=== PATIENT | female | born 1970 | race Caucasian/White ===

== ENCOUNTER → 2016-06-04 | Outpatient (POV) | payer OTHER, SELFPAY | PROVIDERS: Family Provider Internal Medicine Adolescent Medicine; PCP Internal Medicine Adolescent Medicine; Visit Provider Specialist | DX: Z00.00 Encounter for general adult medical examination without abnormal findings (principal) ==

== ENCOUNTER → 2017-07-24 07:36 | Outpatient (CLI) | payer OTHER, SELFPAY ==
[2017-07-24 07:57] LABS: Basophils % 0.7 % (0.1-2.0); Eosinophils # 0.3 K/mm3 (0.0-0.4); Eosinophils % 5.9 % (0.1-12.0); Lymphocytes # 1.8 K/mm3 (0.7-4.5); Lymphocytes % 36.6 K/mm3 (10-50); Mean Corpuscular HGB Conc 33.3 g/dL (31.8-35.4); Mean Corpuscular Hemoglobin 29.5 pg (27.0-31.2); Mean Corpuscular Volume 88.6 fl (81-99); Mean Platelet Volume 7.4 fl (7.4-10.4); Monocytes # 0.2 K/mm3 (0.1-1.0); Monocytes % 4.2 % (1.7-9.3); Neutrophils # 2.6 K/mm3 (1.8-7.8); Neutrophils % 52.6 % (37.0-80.0); Platelet Count 211 K/mm3 (142-424); Red Blood Count 4.74 M/mm3 (4.20-5.40); Red Cell Distribution Width 13.1 % (11.5-17.5); White Blood Count 4.8 K/mm3 (4.8-10.8)
[2017-07-24 08:38] LABS: Alanine Aminotransferase 19 U/L (12-78); Albumin Level 3.4 gm/dL (3.4-5.0); Alkaline Phosphatase 79 U/L (46-116); Aspartate Amino Transferase 13 U/L (15-37); Bilirubin,Total 0.3 mg/dL (0.2-1.0); Blood Urea Nitrogen 13 mg/dL (7-18); Calcium 8.6 mg/dL (8.5-10.1); Carbon Dioxide 30 mmol/L (21.0-32.0); Chloride 106 mmol/L (98-107); Creatinine,Serum 0.91 mg/dL (0.55-1.02); Estimated Glomerular Filt Rate 66 ml/min (>60); GFR (African American) 80 ML/MIN (>60); Globulin 3.4 gm/dl (1.3-3.2); Glucose 114 mg/dL (74-106); Sodium 141 mmol/L (136-145); Total Protein,Serum 6.8 gm/dL (6.4-8.2)
[2017-07-26 11:39] LABS: Levetiracetam (Keppra) 35.5 ug/mL (10.0-40.0)
== END ==
PROVIDERS: Visit Provider Specialist
DX: G40.909 Epilepsy, unspecified, not intractable, without status epilepticus (principal)
CPT/HCPCS: 36415; 80053; 80177; 85025

== ENCOUNTER → 2018-02-05 10:26 | Outpatient (CLI) | payer OTHER, SELFPAY ==
--- NOTE | 2018-02-05 10:29 | MR_ITS ---
MR head/brain wo/w con HISTORY: Seizure disorder ITS.REASON: seizures ORDERING PHYSICIAN: Felicita Garrison PATIENT AGE: 47 years Comparison: 04/07/2015 TECHNIQUE: Standard multiplanar multiecho sequences are performed without and with gadolinium enhancement. FINDINGS: No midline shift, mass effect, intracranial hemorrhage, or hydrocephalus is evident. The cerebellopontine angles, cerebellum, and brainstem are unremarkable. There is normal jones-white matter differentiation. No acute infarction. No abnormal T2 white matter hyperintensities. No enhancing lesions. The hippocampal gyri are unremarkable in the temporal horns are symmetric. There is a partial empty sella once again noted similar to the previous exam. The optic chiasm is unremarkable. Upper cervical cord has an unremarkable appearance. No mastoid effusion or sinus air-fluid level. IMPRESSION: 1. Negative MRI of the brain without and with contrast with no significant change. 2. Partial empty sella as a normal variant [facility] category
--- NOTE | 2018-02-05 11:34 | HMH.ITSHM ---
LEVETIRACETAM DIVALPROEX GABAPENTIN AMITRIPTLYN
== END ==
PROVIDERS: Family Provider Emergency Medicine; PCP Nurse Practitioner Family; Visit Provider Nurse Practitioner Family
DX: G40.909 Epilepsy, unspecified, not intractable, without status epilepticus (principal); G40.919 Epilepsy, unspecified, intractable, without status epilepticus
CPT/HCPCS: 70553; A9576

== ENCOUNTER → 2018-05-09 19:30 | Outpatient (CLI) | payer OTHER, SELFPAY ==
[2018-05-09 20:39] LABS: Amphetamine/Metha Screen,Urine Negative ng/mL (<1000); Barbiturates Screen,Urine Negative ng/mL (<200); Benzodiazepines Screen,Urine Negative ng/mL (<200); Cannabinoid Screen,Urine Negative ng/mL (<50); Cocaine Screen,Urine Negative ng/mL (<300); Methadone Screen,Urine Negative ng/mL (<300); Opiate Screen,Urine Negative ng/mL (<300); Phencyclidine Screen,Urine Negative ng/mL (<25)
== END ==
PROVIDERS: Visit Provider Nurse Practitioner Family
DX: Z79.899 Other long term (current) drug therapy (principal)
CPT/HCPCS: 80305

== ENCOUNTER → 2018-05-12 14:16 | Outpatient (CLI) | payer OTHER, SELFPAY ==
--- NOTE | 2018-05-12 14:20 | XR_ITS ---
XR finger LT min 2V CLINICAL INDICATION: Pain and swelling following injury ITS.REASON: broken finger ORDERING PHYSICIAN: Santa Kelsey PATIENT AGE: 47 years Comparison: None FINDINGS: There is a small triangular-shaped bone fragment along the dorsal and distal aspect of the middle phalanx of the fourth digit consistent with an avulsion fracture. It is uncertain if the donor site is at the distal aspect of the middle phalanx or the proximal aspect of the distal phalanx. There are other small fragments in this region as well. There is mild flexion of the distal phalanx with overlying soft tissue swelling. IMPRESSION: Dorsal avulsion fracture at the DIP joint of the fourth digit
== END ==
PROVIDERS: PCP Nurse Practitioner Family; Visit Provider Nurse Practitioner Family
DX: S62.609A Fracture of unspecified phalanx of unspecified finger, initial encounter for closed fracture (principal)
CPT/HCPCS: 73140

== ENCOUNTER → 2018-07-15 14:24 | Outpatient (CLI) | payer OTHER, SELFPAY ==
[2018-07-15 14:38] LABS: Basophils % 0.5 % (0.1-2.0); Eosinophils # 0.3 K/mm3 (0.0-0.4); Eosinophils % 5.7 % (0.1-12.0); Hematocrit 41.6 % (37.0-47.0); Hemoglobin 13.7 g/dL (12.2-16.2); Lymphocytes # 1.9 K/mm3 (0.7-4.5); Mean Corpuscular Hemoglobin 29.4 pg (27.0-31.2); Mean Platelet Volume 7.3 fl (7.4-10.4); Monocytes # 0.2 K/mm3 (0.1-1.0); Monocytes % 4.6 % (1.7-9.3); Neutrophils # 2.7 K/mm3 (1.8-7.8); Neutrophils % 52.3 % (37.0-80.0); Platelet Count 200 K/mm3 (142-424); Red Blood Count 4.68 M/mm3 (4.20-5.40); Red Cell Distribution Width 13.6 % (11.5-17.5); White Blood Count 5.1 K/mm3 (4.8-10.8)
[2018-07-15 15:54] LABS: Alanine Aminotransferase 27 U/L (12-78); Albumin Level 3.3 gm/dL (3.4-5.0); Albumin/Globulin Ratio 0.9 (1.1-1.8); Alkaline Phosphatase 75 U/L (46-116); Anion Gap 12.2 mEq/L (5-15); Aspartate Amino Transferase 15 U/L (15-37); Bilirubin,Total 0.2 mg/dL (0.2-1.0); Blood Urea Nitrogen 13 mg/dL (7-18); Carbon Dioxide 31 mmol/L (21.0-32.0); Chloride 105 mmol/L (98-107); Creatinine,Serum 1.26 mg/dL (0.55-1.02); Estimated Glomerular Filt Rate 45 ml/min (>60); GFR (African American) 54 ML/MIN (>60); Globulin 3.5 gm/dl (1.3-3.2); Glucose 103 mg/dL (74-106); Potassium 4.2 mmoL/L (3.5-5.1); Sodium 144 mmol/L (136-145); Thyroid Stimulating Hormone 2.81 uIU/ml (0.358-3.740); Total Protein,Serum 6.8 gm/dL (6.4-8.2)
[2018-07-15 16:11] LABS: Erythrocyte Sedimentation Rate 11 mm/hr (0-20)
[2018-07-17 08:55] LABS: Vitamin B12 513 pg/mL (232-1245)
[2018-07-18 08:48] LABS: Folate 4.4 ng/mL (>3.0)
== END ==
PROVIDERS: Visit Provider Nurse Practitioner Family
DX: G40.919 Epilepsy, unspecified, intractable, without status epilepticus (principal)
CPT/HCPCS: 36415; 80053; 82607; 82746; 84443; 85025; 85651

== ENCOUNTER → 2018-08-13 08:34 | Outpatient (CLI) | payer OTHER, SELFPAY ==
--- NOTE | 2018-08-13 08:53 | XR_ITS ---
XR knee LT 3V HISTORY: ITS.REASON: pain ORDERING PHYSICIAN: Lupis Khalil MD PATIENT AGE: 48 years COMPARISON: 10/24/2016 FINDINGS: There are moderate osteoarthritic changes involving all 3 compartments as previously described not significantly changed considering the difference in technique. No fracture or dislocation. No lytic or blastic change. IMPRESSION: No change moderate osteoarthritis of the knee
--- NOTE | 2018-08-13 08:53 | XR_ITS ---
XR knee RT 3V HISTORY: Chronic knee pain ITS.REASON: pain ORDERING PHYSICIAN: Lupis Khalil MD PATIENT AGE: 48 years COMPARISON: None FINDINGS: There are [id number] osteoarthritic changes of the medial compartment and mild osteoarthritis of the lateral compartment and patellofemoral joint. Osteophytes are present at the knee joint. There is a loose body along the inferior aspect of the patella measuring 12 mm. IMPRESSION: [id number] osteoarthritis. Loose body along the infrapatellar region
== END ==
PROVIDERS: PCP Nurse Practitioner Family; Visit Provider Specialist
DX: G40.909 Epilepsy, unspecified, not intractable, without status epilepticus (principal); G89.29 Other chronic pain; M25.562 Pain in left knee; M25.561 Pain in right knee
CPT/HCPCS: 36415; 73562; 80165

== ENCOUNTER → 2019-02-02 14:33 | Outpatient (CLI) | payer OTHER, SELFPAY ==
--- NOTE | 2019-02-02 14:36 | XR_ITS ---
PROCEDURE: XR KNEE RT 4V CLINICAL INDICATION: pain COMPARISON: [id number] KNEE-4 OR 5 VIEWS-RT from 10/24/2016 [id number] KNEE-4 OR 5 VIEWS-LT from 10/24/2016 [id number] XR knee LT 3V from 08/13/2018 [id number] XR knee RT 3V from 08/13/2018 FINDINGS: There are moderate osteoarthritic changes involving the medial compartment and patellofemoral joint with mild osteoarthritis of the lateral compartment. No fracture or dislocation. Osteophytes are present at the medial lateral joint space is well as the patellofemoral joint. Calcific density now overlies the superior lateral aspect of the patella. Previously this was in the infrapatellar region. This is consistent with a loose intra-articular body measuring up to 1.9 cm cephalad caudad and 0.8 cm transverse. IMPRESSION: Osteoarthritis with loose intra-articular body. The osteoarthritic changes are not significantly changed Dictated by: Timothy Desai MD 02/02/2019 16:41 Electronically signed by Timothy Desai MD in [place] 02/02/2019 16:41
--- NOTE | 2019-02-02 14:36 | XR_ITS ---
PROCEDURE: XR KNEE LT 4V CLINICAL INDICATION: pain Knee pain COMPARISON: [id number] KNEE-4 OR 5 VIEWS-RT from 10/24/2016 [id number] KNEE-4 OR 5 VIEWS-LT from 10/24/2016 [id number] XR knee LT 3V from 08/13/2018 [id number] XR knee RT 3V from 08/13/2018 FINDINGS: There are moderate osteoarthritic changes involving all 3 compartments. There is prominent bony spurring decrease in the joint space and osteosclerosis. No fracture or dislocation. There is normal alignment. IMPRESSION: No change moderate osteoarthritis of the left knee Dictated by: Timothy Desai MD 02/02/2019 16:33 Electronically signed by Timothy Desai MD in [place] 02/02/2019 16:33
== END ==
PROVIDERS: PCP Nurse Practitioner Family; Visit Provider Nurse Practitioner Family
DX: G89.29 Other chronic pain (principal); M25.562 Pain in left knee; M25.561 Pain in right knee
CPT/HCPCS: 73564

== ENCOUNTER → 2019-02-11 11:35 | Outpatient (CLI) | payer OTHER, SELFPAY ==
[2019-02-11 12:34] LABS: Basophils % 0.6 % (0.1-2.0); Eosinophils # 0.2 K/mm3 (0.0-0.4); Eosinophils % 3.7 % (0.1-12.0); Hematocrit 44.1 % (37.0-47.0); Hemoglobin 13.3 g/dL (12.2-16.2); Lymphocytes # 1.8 K/mm3 (0.7-4.5); Lymphocytes % 34.6 % (10-50); Mean Corpuscular HGB Conc 30.1 g/dL (31.8-35.4); Mean Corpuscular Hemoglobin 27.8 pg (27.0-31.2); Mean Corpuscular Volume 92.3 fl (81-99); Mean Platelet Volume 7.9 fl (7.4-10.4); Monocytes # 0.3 K/mm3 (0.1-1.0); Monocytes % 6.1 % (1.7-9.3); Neutrophils # 2.8 K/mm3 (1.8-7.8); Neutrophils % 55.1 % (37.0-80.0); Platelet Count 180 K/mm3 (142-424); Red Blood Count 4.78 M/mm3 (4.20-5.40); Red Cell Distribution Width 13.8 % (11.5-17.5); White Blood Count 5.1 K/mm3 (4.8-10.8)
[2019-02-11 13:41] LABS: Alanine Aminotransferase 15 U/L (12-78); Albumin Level 3.2 gm/dL (3.4-5.0); Alkaline Phosphatase 55 U/L (46-116); Anion Gap 10.5 mEq/L (5-15); Aspartate Amino Transferase 7 U/L (15-37); Bilirubin,Total 0.3 mg/dL (0.2-1.0); Blood Urea Nitrogen 9 mg/dL (7-18); Calcium 8.7 mg/dL (8.5-10.1); Carbon Dioxide 30 mmol/L (21.0-32.0); Chloride 107 mmol/L (98-107); Creatinine,Serum 0.76 mg/dL (0.55-1.02); Estimated Glomerular Filt Rate 81 ml/min (>60); GFR (African American) 97 ML/MIN (>60); Globulin 3.1 gm/dl (1.3-3.2); Glucose 75 mg/dL (74-106); Potassium 4.5 mmoL/L (3.5-5.1); Sodium 143 mmol/L (136-145); Total Protein,Serum 6.3 gm/dL (6.4-8.2)
== END ==
PROVIDERS: Visit Provider Nurse Practitioner Family
DX: G40.909 Epilepsy, unspecified, not intractable, without status epilepticus (principal)
CPT/HCPCS: 36415; 80053; 85025

== ENCOUNTER 2019-03-24 20:03 | Observation (INO) ==
[2019-03-24 20:19] LABS: Microscopic, Urine URINE MICROSCOPIC (MICROSCOPIC)
[2019-03-24 20:27] LABS: Appearance,Urine CLEAR (Clear); Blood, Urine TRACE-I (Negative); Color,Urine YELLOW (Yellow); Glucose,Urine (UA) Negative (Negative); Ketones,Urine 3+ (Negative); Leukocyte Esterase,Urine Negative (Negative); Protein,Urine TRACE (Negative); Specific Gravity, Urine 1.025 (1.005-1.030); Urobilinogen,Urine 0.2 EU/dl (0.2)
[2019-03-24 20:40] LABS: Bilirubin,Urine Negative (Negative)
[2019-03-24 20:49] LABS: Bacteria,Urine Trace /lpf; WBC,Urine Occasional #/hpf (0-3)
--- NOTE | 2019-03-24 21:08 | Emergency Department Note ---
ED Disposition Clinical Impression: Abdominal pain Qualifiers: Abdominal location: right upper quadrant Qualified Code(s): R10.11 - Right upper quadrant pain Disposition: Admitted as Observation Condition on Discharge: Good Instructions: DI for Acute Abdomen Referrals: Sonido Redmond MD [Primary Care Provider] - - Critical Care Critical Care Time: No Attestation: On 03/24/19, the high probability of a clinically significant, sudden or life threatening deterioration of the following system(s) required my full and direct attention, intervention and personal management. The time I documented below is in addition to time spent performing reported procedures but includes the following listed in this critical care notation. Medical Decision Making - Medical Records Medical records reviewed: Yes: I reviewed the patient's medical records. - [place] Inquiry Pt receiving controlled substance: No Vital Signs: 03/24/19 20:04 03/24/19 21:35 Temperature 98.4 F Temperature Source Oral Pulse Rate [Right Brachial] 83 72 Respiratory Rate 20 18 Blood Pressure [Right Arm] 164/81 H 167/87 H Blood Pressure Mean [Right Arm] 108 113 Blood Pressure Source [Right Arm] Automatic Cuff Automatic Cuff Blood Pressure Position [Right Arm] Sitting Sitting 02 Sat by Pulse Oximetry 99 97 Oxygen Delivery Method Room Air Room Air - Lab Data Lab results reviewed: Yes: I reviewed the patient's lab results. Lab Results 03/24/19 20:10: Urine Color Yellow, Urine Appearance Clear, Urine pH 6.0, Ur Specific [place] 1.025, Urine Protein Trace, Urine Glucose (UA) Negative, Urine Ketones 3+, Urine Blood Trace-i, Urine Nitrate Negative, Urine Bilirubin Negative, Urine Urobilinogen 0.2, Ur Leukocyte Esterase Negative, Urine WBC Occasional, Ur Squamous Epith Cells 3-5, Urine Bacteria Trace 03/24/19 20:10: Urine HCG, Qual Negative 03/24/19 21:12: WBC 5.8, RBC 4.87, Hgb 14.3, Hct 44.9, MCV 92.2, MCH 29.3, MCHC 31.7 L, RDW 13.7, Plt Count 179, MPV 8.3, Neut % (Auto) 56.3, Lymph % (Auto) 34.3, [place] % (Auto) 6.2, Eos % (Auto) 2.7, Baso % (Auto) 0.5, Neut # (Auto) 3.3, Lymph # (Auto) 2.0, [place] # (Auto) 0.4, Eos # (Auto) 0.2, Baso # (Auto) 0.0 03/24/19 21:12: Sodium 137, Potassium 3.0 L, Chloride 102, Carbon Dioxide 24, Anion Gap 14.0, BUN 11, Creatinine 0.81, Estimated Creat Clear 131, Estimated GFR 75, Est GFR ( Amer) 91, Glucose 79, Calcium 8.6, Total Bilirubin 0.5, AST 13 L, ALT 18, Alkaline Phosphatase 52, Total Protein 6.6, Albumin 3.2 L, Globulin 3.4 H, Albumin/Globulin Ratio 0.9 L, Amylase 163 H 03/24/19 21:12: C-Reactive Protein 1.3 H, Lipase 53 L 03/24/19 21:12: ESR 21 H 03/24/19 21:12: Lactate 0.5 Result diagrams: 03/24/19 21:12 03/24/19 21:12 Orders (Tests/Meds): ED MEDICATIONS Generic Name Dose Route Start Last Admin Trade Name Freq PRN Reason Stop Dose Admin Sodium Chloride 1,000 mls @ 999 mls/hr 03/24/19 20:45 03/24/19 20:45 Sod Chlor 0.9% 1000ml Bag IV 03/24/19 21:45 999 mls/hr .Q1H1M XOCHITL Administration Sodium Chloride 8 ml 03/24/19 20:32 Sodium Chloride 0.9% 10ml Vial IV 04/23/19 20:31 NEEDED PRN dilute pepcid Discontinued Medications Generic Name Dose Route Start Last Admin Trade Name Freq PRN Reason Stop Dose Admin Famotidine 20 mg 03/24/19 20:32 03/24/19 20:45 Pepcid 20mg/2ml Vial IV 03/24/19 20:33 20 mg ONCE ONE Administration Ketorolac Tromethamine 30 mg 03/24/19 20:32 03/24/19 20:45 Toradol 30mg/Ml Vial IV 03/24/19 20:33 30 mg ONCE ONE Administration Metoclopramide HCl 10 mg 03/24/19 20:32 03/24/19 20:45 Reglan 10mg/2ml Vial IVP 03/24/19 20:33 10 mg ONCE ONE Administration Ondansetron HCl 4 mg 03/24/19 20:32 03/24/19 20:45 Zofran 4mg/2ml Vial IV 03/24/19 20:33 4 mg ONCE ONE Administration ORDERS Category Date Time Status CT abdomen pelvis wo con Stat Cat Scan 03/24/19 20:15 Taken Blood Culture Stat Micro 03/24/19 21:12 Received - CT Data CT Scan: Abdomen, Pelvis Time Received: 21:[address] Reviewed: Yes: I have viewed the radiologist's interpretation Preliminary Findings: Abnormal (nonspecific ) Nausea/Vomiting/Diarrhea HPI - General Chief complaint: Abdominal Pain Stated complaint: abd pain Time Seen by Provider: 03/24/19 20:10 Mode of Arrival: Ambulatory Source of Information: Patient, Spouse, Medical Record Limitations: No Limitations Description of Symptoms (Recalled from ER Triage Doc. by RN): Pt states she was dx with a UTI on sat and is still having abd pain. She reports it as being the same as before. She denies any other symptoms at this time. - History of Present Illness HPI Narrative: pt with upper abd pain with voming and dec po intake with hx of same and was seen in the [facility] and treated for uti MD complaint: nausea, vomiting, abdominal pain Onset (ago): day(s) Associated Abdominal Pain: Yes Location of pain: epigastric Severity: moderate Consistency: intermittent Associated symptoms: denies other symptoms - Related Data Home Medications Medication Instructions Recorded Confirmed Gabapentin [Neurontin 600mg 600 mg PO TID 02/20/19 03/24/19 tablet] cephALEXin [Keflex 500mg Cap] 500 mg PO BID 03/24/19 03/24/19 Previous Rx's Medication Instructions Recorded levetiracetam 500 mg tablet 1,500 mg PO BID 30 Days #180 tab 07/28/18 Cyclobenzaprine HCl 5 mg PO Q8H PRN 10 Days #30 tab 02/20/19 [Cyclobenzaprine 5mg Tab] Naproxen [Naproxen 500mg tab] 500 mg PO Q12H PRN 30 Days #60 tab 02/20/19 Allergies Allergy/AdvReac Type Severity Reaction Status Date / Time codeine [CODEINE] Allergy Unknown Verified 03/24/19 20:13 guaifenesin [GUAIFENESIN] Allergy Unknown Verified 03/24/19 20:13 morphine [MORPHINE] Allergy Unknown Verified 03/24/19 20:13 [facility] History - Hepatitis A Screen Drug use history?: No High risk sexual behaviors?: No History of sexually transmitted infection?: No Currently employed?: No Childcare worker?: No Do you have indoor plumbing?: Yes Do you have electricity?: Yes Attestation statement:: This patient has been screened for Hepatitis A risk factors. I have reviewed the patient's past medical history: Yes Medical History: Reports:: Anxiety, Hyperlipidemia, Hypertension, Seizures Comment: Back pain Other Surgeries: Yes: Amputation: No Fractures: No - Social History Smoking Status: Never smoker Alcohol Intake: never Alcohol Intake Frequency:: other Substance Use Type: denies use Occupational Status: employed Housing: house Household Members: spouse, children - Psychiatric History Pschychiatric History:: Reports:: Anxiety Family Hx:: Hypertension, Cancer ROS Obtained: Yes All systems reviewed & no additional complaints - Constitutional Constitutional: Denies fever(s) - Eyes Eyes: Denies change in vision - ENT Ears, Nose, Mouth, and Throat: Denies sore throat - Cardiovascular Cardiovascular: Denies chest pain - Respiratory Respiratory: No cough - Gastrointestinal Gastrointestingal: Reports: as per HPI, abdominal pain, nausea, vomiting. Denies: diarrhea - Genitourinary Female Genitourinary: Denies hematuria - Musculoskeletal Musculoskeletal: Denies joint pain, Denies joint swelling - Integumentary/Breasts Skin/Breast: Denies rash - Neurologic Neurologic: Denies frequent falls, Denies seizure-like activity Physical Exam - General General appearance: alert, obese - Head Head exam: normocephalic - Eye Eye exam: Present: PERRL, EOMI. Absent: scleral icterus - ENT ENT exam: Present: mucous membranes dry - Neck Neck exam: Present: trachea midline - Respiratory Respiratory exam: Present: normal lung sounds bilaterally. Absent: respiratory distress - Cardiovascular Cardiovascular exam: Present: regular rate. Absent: systolic murmur - Abdominal Exam Abdominal exam: Present: soft, tenderness. Absent: tenderness at McBur[place]'s Point Abdominal tenderness: Present: epigastrium, moderate - Extremities Exam Extremities exam: Present: full ROM - Neurological Exam Neurological exam: Present: alert, oriented X3, CN II-XII intact - Psychiatric Psychiatric exam: Present: normal affect - Skin Skin exam: Absent: rash
[2019-03-24 21:24] LABS: Basophils % 0.5 % (0.1-2.0); Eosinophils # 0.2 K/mm3 (0.0-0.4); Eosinophils % 2.7 % (0.1-12.0); Hematocrit 44.9 % (37.0-47.0); Hemoglobin 14.3 g/dL (12.2-16.2); Lymphocytes % 34.3 % (10-50); Mean Corpuscular HGB Conc 31.7 g/dL (31.8-35.4); Mean Corpuscular Volume 92.2 fl (81-99); Mean Platelet Volume 8.3 fl (7.4-10.4); Monocytes # 0.4 K/mm3 (0.1-1.0); Monocytes % 6.2 % (1.7-9.3); Neutrophils # 3.3 K/mm3 (1.8-7.8); Neutrophils % 56.3 % (37.0-80.0); Platelet Count 179 K/mm3 (142-424); Red Blood Count 4.87 M/mm3 (4.20-5.40); Red Cell Distribution Width 13.7 % (11.5-17.5); White Blood Count 5.8 K/mm3 (4.8-10.8)
[2019-03-24 21:32] LABS: C-Reactive Protein 1.3 mg/dL (0.0-0.9)
[2019-03-24 21:37] LABS: Albumin Level 3.2 gm/dL (3.4-5.0); Albumin/Globulin Ratio 0.9 (1.1-1.8); Bilirubin,Total 0.5 mg/dL (0.2-1.0); Calcium 8.6 mg/dL (8.5-10.1); Globulin 3.4 gm/dl (1.3-3.2); Total Protein,Serum 6.6 gm/dL (6.4-8.2)
[2019-03-25 06:24] LABS: Basophils % 0.7 % (0.1-2.0); Eosinophils # 0.1 K/mm3 (0.0-0.4); Eosinophils % 2.8 % (0.1-12.0); Hematocrit 38.8 % (37.0-47.0); Lymphocytes # 1.6 K/mm3 (0.7-4.5); Lymphocytes % 32.1 % (10-50); Mean Corpuscular HGB Conc 32.3 g/dL (31.8-35.4); Mean Corpuscular Volume 91.2 fl (81-99); Mean Platelet Volume 8.8 fl (7.4-10.4); Monocytes # 0.4 K/mm3 (0.1-1.0); Monocytes % 7.2 % (1.7-9.3); Neutrophils # 2.9 K/mm3 (1.8-7.8); Neutrophils % 57.1 % (37.0-80.0); Platelet Count 141 K/mm3 (142-424); Red Blood Count 4.26 M/mm3 (4.20-5.40); Red Cell Distribution Width 13.4 % (11.5-17.5)
[2019-03-25 06:36] LABS: Hemoglobin 12.6 g/dL (12.2-16.2)
[2019-03-25 06:56] LABS: Anion Gap 15.2 mEq/L (5-15); Calcium 7.9 mg/dL (8.5-10.1)
--- NOTE | 2019-03-25 07:20 | Pharmacy Consult Notes ---
[facility] Pharmacy VTE Monitoring - Patient Demographics Admission date: 03/24/19 Report Date: 03/25/19 Time: 07:20 Allergies/Adverse Reactions: Patient Allergies codeine [CODEINE] Allergy (Unknown, Verified 03/24/19 20:13) guaifenesin [GUAIFENESIN] Allergy (Unknown, Verified 03/24/19 20:13) morphine [MORPHINE] Allergy (Unknown, Verified 03/24/19 20:13) Height: 1.7 m Weight: 105.347 kg Patient Problems: Current Active Problems Abdominal pain (Acute) - VTE Risk Labs: VTE Related Lab Results Hgb 12.6 g/dL (12.2-16.2) D 03/25/19 06:15 Hct 38.8 % (37.0-47.0) 03/25/19 06:15 Plt Count 141 K/mm3 (142-424) L 03/25/19 06:15 BUN 9 mg/dL (7-18) 03/25/19 06:15 Creatinine 0.66 mg/dL (0.55-1.02) 03/25/19 06:15 Estimated Creat Clear 170 mL/min (50-200) 03/25/19 06:15 Was VTE Risk Assessment Performed: No VTE Score: 3 VTE Risk Level: Low Risk - Prophylaxis VTE Prophylaxis Ordered?: Yes Types of VTE Prophylaxis: TEDS Knee High Location of Applied Device: Bilateral Lower Extremeties - VTE Diagnosis Confirmed Treatment or plan recommended: Continue Current Treatment
--- NOTE | 2019-03-25 08:56 | Consult Report ---
*Admission Date: 03/24/19 *Reason for consult:: Right upper quadrant pain. Possible cholelithiasis. *History of present illness: This is a 48-year-old female seen in consultation from Dr. Redmond for evaluation regarding right upper quadrant abdominal pain and possible cholelithiasis. She presented to the emergency department yesterday with increasing upper abdominal pain. She states that her pain is in the epigastric region and right upper quadrant and has been exacerbated by "fatty foods like hamburgers". No jaundice. No fevers. She has recently been diagnosed with urinary tract infection and is on antibiotics. No change in bowel habits. CT scan revealed a possible stone in the neck of the gallbladder with no definitive signs of cholecystitis. Diverticulosis and mild thickening of small bowel loops within the pelvis were also noted. Review of Systems - Constitutional Denies chills - Eyes Denies change in vision - ENT Denies dizziness - *Cardiovascular Denies chest pain - *Respiratory Denies cough - *Gastrointestinal Reports abdominal pain, Reports nausea - *Genitourinary Denies abnormal vaginal bleeding - *Musculoskeletal Denies tingling - Integumentary/Breasts Denies bleeding lesions - *Neurologic Denies frequent falls, Denies seizure-like activity - Psychiatric Denies anxiety - Endocrine Denies flushing - Hematologic/Lymphatic Denies easy bleeding [facility] History Medical History: Reports:: Anxiety, Hyperlipidemia, Hypertension, Seizures Denies:: Diabetes Mellitus Type 1, Diabetes Mellitus Type 2 *Have you ever received a pneumonia vaccine?: No *Have you received a flu vaccine this season?: No Other Surgeries: Yes: Amputation: No Fractures: No - *Social History Educational Level: Completed High School Smoking Status: Never smoker Alcohol Intake: never Alcohol Intake Frequency:: other Substance Use Type: denies use *Occupational Status:: employed Housing: house Household Members: spouse, children *Travel in the last 8 weeks: None - Psychiatric History Pschychiatric History:: Reports:: Anxiety Family Hx:: Hypertension, Cancer Meds Home Medications Medication Instructions Recorded Confirmed Type levetiracetam 500 mg tablet 1,500 mg PO BID 30 Days #180 tab 07/28/18 03/24/19 Rx Gabapentin [Neurontin 600mg 600 mg PO TID 02/20/19 03/24/19 History tablet] Divalproex Sodium [Divalproex 250 mg PO BID 03/24/19 03/24/19 History Sodium ER] cephALEXin [Keflex 500mg Cap] 500 mg PO BID 03/24/19 03/24/19 History Allergies Allergy/AdvReac Type Severity Reaction Status Date / Time codeine [CODEINE] Allergy Unknown Verified 03/24/19 20:13 guaifenesin [GUAIFENESIN] Allergy Unknown Verified 03/24/19 20:13 morphine [MORPHINE] Allergy Unknown Verified 03/24/19 20:13 Exam Vital signs and Labs for Last 24 Hours: Temp Pulse Resp BP Pulse Ox 98.7 F 63 19 148/58 H 94 L 03/25/19 08:00 03/25/19 08:00 03/25/19 08:00 03/25/19 08:00 03/25/19 08:00 Laboratory Results - last 24 hr 03/24/19 20:10: Urine Color Yellow, Urine Appearance Clear, Urine pH 6.0, Ur Specific [place] 1.025, Urine Protein Trace, Urine Glucose (UA) Negative, Urine Ketones 3+, Urine Blood Trace-i, Urine Nitrate Negative, Urine Bilirubin Negative, Urine Urobilinogen 0.2, Ur Leukocyte Esterase Negative, Urine WBC Occasional, Ur Squamous Epith Cells 3-5, Urine Bacteria Trace 03/24/19 20:10: Urine HCG, Qual Negative 03/24/19 21:12: WBC 5.8, RBC 4.87, Hgb 14.3, Hct 44.9, MCV 92.2, MCH 29.3, MCHC 31.7 L, RDW 13.7, Plt Count 179, MPV 8.3, Neut % (Auto) 56.3, Lymph % (Auto) 34.3, [place] % (Auto) 6.2, Eos % (Auto) 2.7, Baso % (Auto) 0.5, Neut # (Auto) 3.3, Lymph # (Auto) 2.0, [place] # (Auto) 0.4, Eos # (Auto) 0.2, Baso # (Auto) 0.0 03/24/19 21:12: Sodium 137, Potassium 3.0 L, Chloride 102, Carbon Dioxide 24, Anion Gap 14.0, BUN 11, Creatinine 0.81, Estimated Creat Clear 131, Estimated GFR 75, Est GFR ( Amer) 91, Glucose 79, Calcium 8.6, Total Bilirubin 0.5, AST 13 L, ALT 18, Alkaline Phosphatase 52, Total Protein 6.6, Albumin 3.2 L, Globulin 3.4 H, Albumin/Globulin Ratio 0.9 L, Amylase 163 H 03/24/19 21:12: C-Reactive Protein 1.3 H, Lipase 53 L 03/24/19 21:12: ESR 21 H 03/24/19 21:12: Lactate 0.5 03/25/19 06:15: WBC 5.0, RBC 4.26, Hgb 12.6 D, Hct 38.8, MCV 91.2, MCH 29.5, MCHC 32.3, RDW 13.4, Plt Count 141 L, MPV 8.8, Neut % (Auto) 57.1, Lymph % (Auto) 32.1, [place] % (Auto) 7.2, Eos % (Auto) 2.8, Baso % (Auto) 0.7, Neut # (Auto) 2.9, Lymph # (Auto) 1.6, [place] # (Auto) 0.4, Eos # (Auto) 0.1, Baso # (Auto) 0.0 03/25/19 06:15: Sodium 140, Potassium 3.2 L, Chloride 104, Carbon Dioxide 24, Anion Gap 15.2 H, BUN 9, Creatinine 0.66, Estimated Creat Clear 170, Estimated GFR 95, Est GFR ( Amer) 115 D, Glucose 75, Calcium 7.9 L I & O for Last 24 hours: Intake & Output 03/22/19 03/23/19 03/24/19 03/25/19 11:59 11:59 11:59 11:59 Intake Total 677 / 677 Output Total 450 / 450 Balance 227 / 227 Weight 232 lb 4 oz - Constitutional no acute distress - *Routine Respiratory Exam Absent: respiratory distress - *Routine Cardiovascular Exam Present: RRR - *Routine Abdominal Exam Present: soft, tenderness Results - Labs 03/25/19 06:15 03/25/19 06:15 Laboratory Results - last 24 hr 03/24/19 20:10: Urine Color Yellow, Urine Appearance Clear, Urine pH 6.0, Ur Specific [place] 1.025, Urine Protein Trace, Urine Glucose (UA) Negative, Urine Ketones 3+, Urine Blood Trace-i, Urine Nitrate Negative, Urine Bilirubin Negative, Urine Urobilinogen 0.2, Ur Leukocyte Esterase Negative, Urine WBC Occasional, Ur Squamous Epith Cells 3-5, Urine Bacteria Trace 03/24/19 20:10: Urine HCG, Qual Negative 03/24/19 21:12: WBC 5.8, RBC 4.87, Hgb 14.3, Hct 44.9, MCV 92.2, MCH 29.3, MCHC 31.7 L, RDW 13.7, Plt Count 179, MPV 8.3, Neut % (Auto) 56.3, Lymph % (Auto) 3 4.3, [place] % (Auto) 6.2, Eos % (Auto) 2.7, Baso % (Auto) 0.5, Neut # (Auto) 3.3, Lymph # (Auto) 2.0, [place] # (Auto) 0.4, Eos # (Auto) 0.2, Baso # (Auto) 0.0 03/24/19 21:12: Sodium 137, Potassium 3.0 L, Chloride 102, Carbon Dioxide 24, Anion Gap 14.0, BUN 11, Creatinine 0.81, Estimated Creat Clear 131, Estimated GFR 75, Est GFR ( Amer) 91, Glucose 79, Calcium 8.6, Total Bilirubin 0.5, AST 13 L, ALT 18, Alkaline Phosphatase 52, Total Protein 6.6, Albumin 3.2 L, Globulin 3.4 H, Albumin/Globulin Ratio 0.9 L, Amylase 163 H 03/24/19 21:12: C-Reactive Protein 1.3 H, Lipase 53 L 03/24/19 21:12: ESR 21 H 03/24/19 21:12: Lactate 0.5 03/25/19 06:15: WBC 5.0, RBC 4.26, Hgb 12.6 D, Hct 38.8, MCV 91.2, MCH 29.5, MCHC 32.3, RDW 13.4, Plt Count 141 L, MPV 8.8, Neut % (Auto) 57.1, Lymph % (Auto) 32.1, [place] % (Auto) 7.2, Eos % (Auto) 2.8, Baso % (Auto) 0.7, Neut # (Auto) 2.9, Lymph # (Auto) 1.6, [place] # (Auto) 0.4, Eos # (Auto) 0.1, Baso # (Auto) 0.0 03/25/19 06:15: Sodium 140, Potassium 3.2 L, Chloride 104, Carbon Dioxide 24, Anion Gap 15.2 H, BUN 9, Creatinine 0.66, Estimated Creat Clear 170, Estimated GFR 95, Est GFR ( Amer) 115 D, Glucose 75, Calcium 7.9 L Assessment and Plan (1) Upper abdominal pain Current visit: Yes Status: Acute Category: Medical Code(s): R10.10 - Upper abdominal pain, unspecified Possible cholelithiasis noted on CT scan. Ultrasound is pending. Follow-up pending ultrasound. I discussed the likelihood of cholecystectomy. She states that she "feels a little better right now". She understands that she may require surgery but does not want surgery before Thanksgiving (tomorrow). She is willing to follow-up early next week for final surgical planning if surgery is deemed warranted.
--- NOTE | 2019-03-25 10:57 | H&P/Discharge Summary ---
General - General Admission date:: 03/24/19 Discharge date: 03/25/19 *Admission Date: 03/24/19 [facility] History Medical History: Reports:: Anxiety, Hyperlipidemia, Hypertension, Seizures Denies:: Diabetes Mellitus Type 1, Diabetes Mellitus Type 2 *Have you ever received a pneumonia vaccine?: No *Have you received a flu vaccine this season?: No Other Surgeries: Yes: Amputation: No Fractures: No - *Social History Educational Level: Completed High School Smoking Status: Never smoker Alcohol Intake: never Alcohol Intake Frequency:: other Substance Use Type: denies use *Occupational Status:: employed Housing: house Household Members: spouse, children *Travel in the last 8 weeks: None - Psychiatric History Pschychiatric History:: Reports:: Anxiety Family Hx:: Hypertension, Cancer Review of Systems - Review of Systems Review of systems:: pertinent systems reviewed and negative unless documented below - Constitutional Denies body ache(s), Denies fever(s) - Eyes Denies change in vision, Denies sensitivity to light - ENT Denies ear pain, Denies sinus pressure, Denies sore throat - *Cardiovascular Denies chest pain, Denies shortness of breath - *Respiratory Denies chest congestion, Denies shortness of breath - *Gastrointestinal Reports abdominal pain, Reports nausea, Denies change in bowel habits, Denies change in stools, Denies difficulty swallowing - *Musculoskeletal Denies joint pain, Denies body aches - Integumentary/Breasts Denies lesions, Denies rash - *Neurologic Denies dizziness, Denies frequent falls, Denies seizure-like activity, Denies tingling - Psychiatric Denies lack of enjoyment, Denies thoughts of hurting/killing others, Denies thoughts of hurting/killing yourself - Endocrine Denies cold intolerance, Denies heat intolerance - Hematologic/Lymphatic Denies easy bleeding, Denies easy bruising - Allergic/Immunologic Denies throat swelling, Denies tongue swelling Exam Vital signs and Labs for Last 24 Hours: Temp Pulse Resp BP Pulse Ox 98.7 F 63 19 148/58 H 94 L 03/25/19 08:00 03/25/19 08:00 03/25/19 08:00 03/25/19 08:00 03/25/19 08:00 Laboratory Results - last 24 hr 03/24/19 20:10: Urine Color Yellow, Urine Appearance Clear, Urine pH 6.0, Ur Specific Freeland 1.025, Urine Protein Trace, Urine Glucose (UA) Negative, Urine Ketones 3+, Urine Blood Trace-i, Urine Nitrate Negative, Urine Bilirubin Negative, Urine Urobilinogen 0.2, Ur Leukocyte Esterase Negative, Urine WBC Occasional, Ur Squamous Epith Cells 3-5, Urine Bacteria Trace 03/24/19 20:10: Urine HCG, Qual Negative 03/24/19 21:12: WBC 5.8, RBC 4.87, Hgb 14.3, Hct 44.9, MCV 92.2, MCH 29.3, MCHC 31.7 L, RDW 13.7, Plt Count 179, MPV 8.3, Neut % (Auto) 56.3, Lymph % (Auto) 34.3, [place] % (Auto) 6.2, Eos % (Auto) 2.7, Baso % (Auto) 0.5, Neut # (Auto) 3.3, Lymph # (Auto) 2.0, [place] # (Auto) 0.4, Eos # (Auto) 0.2, Baso # (Auto) 0.0 03/24/19 21:12: Sodium 137, Potassium 3.0 L, Chloride 102, Carbon Dioxide 24, Anion Gap 14.0, BUN 11, Creatinine 0.81, Estimated Creat Clear 131, Estimated GFR 75, Est GFR ( Amer) 91, Glucose 79, Calcium 8.6, Total Bilirubin 0.5, AST 13 L, ALT 18, Alkaline Phosphatase 52, Total Protein 6.6, Albumin 3.2 L, Globulin 3.4 H, Albumin/Globulin Ratio 0.9 L, Amylase 163 H 03/24/19 21:12: C-Reactive Protein 1.3 H, Lipase 53 L 03/24/19 21:12: ESR 21 H 03/24/19 21:12: Lactate 0.5 03/25/19 06:15: WBC 5.0, RBC 4.26, Hgb 12.6 D, Hct 38.8, MCV 91.2, MCH 29.5, MCHC 32.3, RDW 13.4, Plt Count 141 L, MPV 8.8, Neut % (Auto) 57.1, Lymph % (Auto) 32.1, [place] % (Auto) 7.2, Eos % (Auto) 2.8, Baso % (Auto) 0.7, Neut # (Auto) 2.9, Lymph # (Auto) 1.6, [place] # (Auto) 0.4, Eos # (Auto) 0.1, Baso # (Auto) 0.0 03/25/19 06:15: Sodium 140, Potassium 3.2 L, Chloride 104, Carbon Dioxide 24, Anion Gap 15.2 H, BUN 9, Creatinine 0.66, Estimated Creat Clear 170, Estimated GFR 95, Est GFR ( Amer) 115 D, Glucose 75, Calcium 7.9 L I & O for Last 24 hours: Intake & Output 03/22/19 03/23/19 03/24/19 03/25/19 23:59 23:59 23:59 23:59 Intake Total 677 / 677 Output Total 150 / 150 300 / 300 Balance -150 / -150 377 / 377 Weight 230 lb 232 lb 4 oz - Constitutional no acute distress - *Routine HEENT Exam Head: Present: normocephalic, atraumatic Eye: Present: EOMI, PERRL, normal accommodation ENT: Present: mucous membranes moist - *Routine Neck Exam Present: full ROM, JVD, trachea midline. Absent: tracheal deviation - *Routine Respiratory Exam Present: CTA bilaterally. Absent: accessory muscle use, rales, respiratory distress - *Routine Cardiovascular Exam Present: RRR, murmur - *Routine Abdominal Exam Present: soft, normoactive bowel sounds - *Routine Extremities Exam Present: full ROM, pulses intact. Absent: cyanosis, calf tenderness - Routine Back/Spine/Pelvis Exam Back/Spine: Present: full ROM. Absent: CVA tenderness - *Routine Skin Exam Present: intact, warm. Absent: jaundice, rash - *Routine Neurological Exam Present: alert, oriented X3, CN II-XII intact. Absent: sensory deficit, pronator drift - Routine Psychiatric Exam Present: normal affect, normal thought process. Absent: suicidal ideation, homicidal ideation Hospital Course Hospital Course: 48-year-old female patient sitting up in bed resting quietly respirations easy e alfa. She reports she is feeling a lot better now denies any further nausea vomiting or diarrhea and reports she is currently pain-free. Abdomen is slightly tender to palpation in the epigastric and right upper quadrant areas. She is informed that general surgery will be in to see her today and we will make decisions upon his request. She reports that she would like to go home and if if necessary have surgery after the holiday. Explained to her that medical possibilities and will wait and see general surgery's input. 48-year-old female patient presented to the emergency room after 3-4 day episodes of increasing upper abdominal pain and N/V/D. She was seen in the [facility] and was diagnosed with UTI recently and is on antibiotics for that. She reports that her pain is in the right upper quadrant and epigastric region and is exacerbated by fatty foods. She has no jaundice. In the ED her WBC was 5.8, H&H was 14.3/44.9 sodium was 137, potassium was 3.0. In the ER she did receive famotidine IV, Toradol IV, Reglan IV, and Zofran, blood cultures x2 were also drawn. After this she did report a decrease in pain and was transferred to the floor. General surgery has seen and recommended: I discussed the likelihood of cholecystectomy. She states that she "feels a little better right now". She understands that she may require surgery but does not want surgery before (tomorrow). She is willing to follow-up early next week for final surgical planning if surgery is deemed warranted. (Per Dr. Tinoco) 03/24 Abd/Pelvis CT: IMPRESSION: 1. Possible cholelithiasis. 2. Mildly thickened small bowel loops in the pelvis suggesting enteritis. Multiple unopacified bowel loops in the abdomen or pelvis which could obscure or mimic pathology. If symptoms persist, consider repeat exam with IV and oral contrast.. 3. Small amount fluid in the pelvis. 4. Colonic diverticulosis without evidence of diverticulitis Dictated by: Dr. Desai, 03/25 Gallbladder U/S: FINDINGS: Pancreas: Unremarkable/Not well seen Liver: Unremarkable. There is appropriate direction of blood flow within a non dilated portal vein. Right kidney: Unremarkable appearing. No hydronephrosis. Gallbladder: Multiple small gallstones are present. No gallbladder wall thickening, pericholecystic fluid, or biliary dilatation is evident. IMPRESSION: Cholelithiasis Dictated by: Dr. Desai, She will be discharged home today follow-up with general surgery next week and follow-up in the office in 1 to 2 weeks. Results Labs on day of discharge: Labs from last 24 hours 03/25/19 03/25/19 03/24/19 06:15 06:15 21:12 WBC 5.0 RBC 4.26 Hgb 12.6 D Hct 38.8 MCV 91.2 MCH 29.5 MCHC 32.3 RDW 13.4 Plt Count 141 L MPV 8.8 Neut % (Auto) 57.1 Lymph % (Auto) 32.1 [place] % (Auto) 7.2 Eos % (Auto) 2.8 Baso % (Auto) 0.7 Neut # (Auto) 2.9 Lymph # (Auto) 1.6 [place] # (Auto) 0.4 Eos # (Auto) 0.1 Baso # (Auto) 0.0 ESR Sodium 140 Potassium 3.2 L Chloride 104 Carbon Dioxide 24 Anion Gap 15.2 H BUN 9 Creatinine 0.66 Estimated Creat Clear 170 Estimated GFR 95 Est GFR ( Amer) 115 D Glucose 75 Lactate 0.5 Calcium 7.9 L Total Bilirubin AST ALT Alkaline Phosphatase C-Reactive Protein Total Protein Albumin Globulin Albumin/Globulin Ratio Amylase Lipase Urine Color Urine Appearance Urine pH Ur Specific Freeland Urine Protein Urine Glucose (UA) Urine Ketones Urine Blood Urine Nitrate Urine Bilirubin Urine Urobilinogen Ur Leukocyte Esterase Urine WBC Ur Squamous Epith Cells Urine Bacteria Urine HCG, Qual 03/24/19 03/24/19 03/24/19 21:12 21:12 21:12 WBC RBC Hgb Hct MCV MCH MCHC RDW Plt Count MPV Neut % (Auto) Lymph % (Auto) [place] % (Auto) Eos % (Auto) Baso % (Auto) Neut # (Auto) Lymph # (Auto) [place] # (Auto) Eos # (Auto) Baso # (Auto) ESR 21 H Sodium 137 Potassium 3.0 L Chloride 102 Carbon Dioxide 24 Anion Gap 14.0 BUN 11 Creatinine 0.81 Estimated Creat Clear 131 Estimated GFR 75 Est GFR ( Amer) 91 Glucose 79 Lactate Calcium 8.6 Total Bilirubin 0.5 AST 13 L ALT 18 Alkaline Phosphatase 52 C-Reactive Protein 1.3 H Total Protein 6.6 Albumin 3.2 L Globulin 3.4 H Albumin/Globulin Ratio 0.9 L Amylase 163 H Lipase 53 L Urine Color Urine Appearance Urine pH Ur Specific Fre[place] Urine Protein Urine Glucose (UA) Urine Ketones Urine Blood Urine Nitrate Urine Bilirubin Urine Urobilinogen Ur Leukocyte Esterase Urine WBC Ur Squamous Epith Cells Urine Bacteria Urine HCG, Qual 03/24/19 03/24/19 03/24/19 21:12 20:10 20:10 WBC 5.8 RBC 4.87 Hgb 14.3 Hct 44.9 MCV 92.2 MCH 29.3 MCHC 31.7 L RDW 13.7 Plt Count 179 MPV 8.3 Neut % (Auto) 56.3 Lymph % (Auto) 34.3 [place] % (Auto) 6.2 Eos % (Auto) 2.7 Baso % (Auto) 0.5 Neut # (Auto) 3.3 Lymph # (Auto) 2.0 [place] # (Auto) 0.4 Eos # (Auto) 0.2 Baso # (Auto) 0.0 ESR Sodium Potassium Chloride Carbon Dioxide Anion Gap BUN Creatinine Estimated Creat Clear Estimated GFR Est GFR ( Amer) Glucose Lactate Calcium Total Bilirubin AST ALT Alkaline Phosphatase C-Reactive Protein Total Protein Albumin Globulin Albumin/Globulin Ratio Amylase Lipase Urine Color Yellow Urine Appearance Clear Urine pH 6.0 Ur Specific Freeland 1.025 Urine Protein Trace Urine Glucose (UA) Negative Urine Ketones 3+ Urine Blood Trace-i Urine Nitrate Negative Urine Bilirubin Negative Urine Urobilinogen 0.2 Ur Leukocyte Esterase Negative Urine WBC Occasional Ur Squamous Epith Cells 3-5 Urine Bacteria Trace Urine HCG, Qual Negative - Additional Comments Rounded with Dr. Redmond all orders per Dr. Redmond 1. We will discharge home today 2. Follow-up with general surgery as outpatient 3. Follow-up in PCP in 1 to 2 weeks 4. Will stop Keflex 5. Ramona 5mg QID PRN X 3 days 6. Return to ED for increasing pain DS: Diagnosis - Discharge Diagnosis (1) Upper abdominal pain Status: Acute (2) Hypokalemia Status: Acute (3) Nausea & vomiting Status: Acute Discharge Plan - Patient Discharge Instructions ACTIVITY: Continue current activity DIET: continue same diet Patient Instructions: Acute Abdominal Pain, DI for Abdominal Pain-Adult, DI for Acute Abdomen - Follow up Plan Follow up with: Jb Tinoco MD [Staff Physician] - (next week) Mohsen Flanagan APRN [Nurse Practitioner] - 2 weeks Disposition: Home, Self-Retirement Medications: Home Medications Medication Instructions Recorded Confirmed Type levetiracetam 500 mg tablet 1,500 mg PO BID 30 Days #180 tab 07/28/18 03/24/19 Rx Gabapentin [Neurontin 600mg 600 mg PO TID 02/20/19 03/24/19 History tablet] Divalproex Sodium [Divalproex 250 mg PO BID 03/24/19 03/24/19 History Sodium ER] cephALEXin [Keflex 500mg Cap] 500 mg PO BID 03/24/19 03/24/19 History Hydrocodone/Acetaminophen [Ramona 1 each PO QID PRN 3 Days #12 tablet 03/25/19 Rx 5-325 Tablet] Prescriptions/Medication Reconciliation: New Hydrocodone/Acetaminophen [Ramona 5-325 Tablet] 1 each PO QID PRN 3 Days #12 tablet PRN Reason: Pain Continued levetiracetam 500 mg tablet 1,500 mg PO BID 30 Days #180 tab Divalproex Sodium [Divalproex Sodium ER] 250 mg PO BID Gabapentin [Neurontin 600mg tablet] 600 mg PO TID Discontinued cephALEXin [Keflex 500mg Cap] 500 mg PO BID - Problem Reconciliation Problems Reviewed?: Yes
== END 2019-03-25 12:25 | disposition home or self-care (01) ==
LOC: ER 20:03 → 2ND 20:03
PROVIDERS: ADMIT Emergency Medicine; ATTEND Emergency Medicine
CPT/HCPCS: 74176; 76705; 80048; 80053; 81001; 81025; 82150; 83605; 83690; 85025; 85651; 86140; 87040; 96365; 96375; 99284; G0378; J2405

== ENCOUNTER → 2019-04-25 14:05 | Outpatient (CLI) | payer OTHER, SELFPAY ==
--- NOTE | 2019-04-25 14:11 | XR_ITS ---
PROCEDURE: XR ABDOMEN MIN 2V CLINICAL INDICATION: pain abdominal pain and diarrhea COMPARISON: No exams were available for comparison FINDINGS: There are surgical clips right upper quadrant likely from previous cholecystectomy. There is scattered gas in the ascending and transverse and descending colon. Mildly dilated air-filled loops of small bowel are seen in the mid abdomen. There is no free air and no abnormal soft tissue shadows. There prominent degenerate changes of the lower thoracic spine. IMPRESSION: Mildly abnormal non-specific bowel gas pattern Dictated by: Dr. Gonzalo Graff MD 04/25/2019 15:[address] Gonzalo Graff MD in [place] 04/25/2019 15:38
[2019-04-25 14:20] LABS: Adenovirus F 40/41, stool Not Detected (NotDetected); Astrovirus Not Detected (NotDetected); Campylobacter Not Detected (NotDetected); Clostridium Difficile A/B, PCR Not Detected (NotDetected); Cryptosporidium Not Detected (NotDetected); Cyclospora Cayetanesis Not Detected (NotDetected); Entamoeba histolytica Not Detected (NotDetected); Enteroaggregative E coli Not Detected (NotDetected); Enteropathogenic E coli Not Detected (NotDetected); Enterotoxigenic E coli Not Detected (NotDetected); Giardia lamblia Not Detected (NotDetected); Norovirus Not Detected (NotDetected); Plesimonas Shigalloides, PCR Not Detected (NotDetected); Rotavirus A Not Detected (NotDetected); Salmonella, PCR Not Detected (NotDetected); Sapovirus Not Detected (NotDetected); Shiga-like toxin E coli Not Detected (NotDetected); Shigella Enterovasive E coli Not Detected (NotDetected); Vibrio Cholerae Not Detected (NotDetected); Vibrio, PCR Not Detected (NotDetected); Yersinia Entercolitica, PCR Not Detected (NotDetected)
== END ==
PROVIDERS: Visit Provider Nurse Practitioner Family
DX: R19.7 Diarrhea, unspecified (principal); R10.9 Unspecified abdominal pain
CPT/HCPCS: 74019; 87507

== ENCOUNTER → 2019-06-17 13:40 | Outpatient (CLI) | payer OTHER, SELFPAY ==
[2019-06-17 14:20] LABS: Alanine Aminotransferase 14 U/L (12-78); Albumin Level 3.6 g/dl (3.5-5.0); Albumin/Globulin Ratio 1.3 (1.1-1.8); Alkaline Phosphatase 41 U/L (38-126); Aspartate Amino Transferase 19 U/L (14-36); Bilirubin,Total 0.4 mg/dl (0.2-1.3); Blood Urea Nitrogen 10 mg/dl (7-17); Calcium 9.1 mg/dl (8.4-10.2); Carbon Dioxide 26 mmol/L (22.0-30.0); Chloride 108 mmol/L (98-107); Estimated Glomerular Filt Rate 88 ml/min (>60); GFR (African American) 107 ML/MIN (>60); Globulin 2.7 g/dL (1.3-3.2); Glucose 103 mg/dl (74-100); Sodium 139 mmol/L (136-145); Total Protein,Serum 6.3 g/dl (6.3-8.2)
[2019-06-17 16:21] LABS: Amphetamine/Metha Screen,Urine Negative ng/ml (<1000); Barbiturates Screen,Urine Negative ng/ml (<200)
[2019-06-17 16:22] LABS: Benzodiazepines Screen,Urine Negative ng/ml (<200)
[2019-06-17 16:23] LABS: Cannabinoid Screen,Urine Negative ng/ml (<50); Cocaine Screen,Urine Negative ng/ml (<300)
[2019-06-17 16:24] LABS: Methadone Screen,Urine Negative ng/ml (<300)
[2019-06-17 16:25] LABS: Opiate Screen,Urine Negative ng/ml (<300); Phencyclidine Screen,Urine Negative ng/ml (<25)
[2019-06-23 08:02] LABS: Levetiracetam (Keppra) 62.9 ug/mL (10.0-40.0)
== END ==
PROVIDERS: Visit Provider Nurse Practitioner Family
DX: Z79.899 Other long term (current) drug therapy (principal); R56.9 Unspecified convulsions
CPT/HCPCS: 80053; 80177; 80305

== ENCOUNTER → 2019-12-02 17:38 | Outpatient (CLI) | payer OTHER, MEDICAID, SELFPAY ==
[2019-12-02 19:44] LABS: 25-OH Vitamin D, Total 36.2 ng/mL (30-100)
[2019-12-02 19:52] LABS: Alanine Aminotransferase 7 U/L (12-78); Albumin Level 3.9 g/dl (3.5-5.0); Albumin/Globulin Ratio 1.3 (1.1-1.8); Alkaline Phosphatase 55 U/L (38-126); Anion Gap 14.8 mEq/L (5-15); Aspartate Amino Transferase 14 U/L (14-36); Bilirubin,Total 0.3 mg/dl (0.2-1.3); Blood Urea Nitrogen 16 mg/dl (7-17); Calcium 9.2 mg/dl (8.4-10.2); Carbon Dioxide 31 mmol/L (22.0-30.0); Chloride 101 mmol/L (98-107); Cholesterol 193 mg/dl (140-200); Estimated Glomerular Filt Rate 47 ml/min (>60); GFR (African American) 57 ML/MIN (>60); Globulin 2.9 g/dL (1.3-3.2); Glucose 85 mg/dl (74-100); HDL Cholesterol 64 mg/dl (40-60); Potassium 4.8 mmoL/L (3.5-5.1); Sodium 142 mmol/L (136-145); Total Protein,Serum 6.8 g/dl (6.3-8.2); Triglycerides 67 mg/dl (30-150); VLDL Cholesterol 13 mg/dL (0-40)
[2019-12-02 20:04] LABS: Direct LDL Cholesterol 118.05 mg/dL (100-129)
[2019-12-02 20:09] LABS: T4 (Thyroxine) 9.3 ug/dl (5.53-11.0)
[2019-12-02 20:22] LABS: Thyroid Stimulating Hormone 2.37 uIU/mL (0.465-4.68)
[2019-12-06 07:25] LABS: Levetiracetam (Keppra) 43.9 ug/mL (10.0-40.0)
== END ==
PROVIDERS: Visit Provider Nurse Practitioner Family
DX: R53.83 Other fatigue (principal); G40.909 Epilepsy, unspecified, not intractable, without status epilepticus
CPT/HCPCS: 80053; 80061; 80177; 82306; 84436; 84443

== ENCOUNTER → 2020-02-01 10:11 | Outpatient (CLI) | payer MEDICAID, SELFPAY ==
[2020-02-01 10:17] LABS: Microscopic, Urine URINE MICROSCOPIC (MICROSCOPIC)
[2020-02-01 11:04] LABS: Basophils % 0.9 % (0.1-2.0); Eosinophils # 0.2 K/mm3 (0.0-0.4); Eosinophils % 3.5 % (0.1-12.0); Hematocrit 45.6 % (37.0-47.0); Hemoglobin 15.2 g/dL (12.2-16.2); Lymphocytes # 1.6 K/mm3 (0.7-4.5); Lymphocytes % 36.9 % (10-50); Mean Corpuscular HGB Conc 33.4 g/dL (31.8-35.4); Mean Corpuscular Volume 92.7 fl (81-99); Mean Platelet Volume 7.9 fl (7.4-10.4); Monocytes # 0.2 K/mm3 (0.1-1.0); Monocytes % 4.9 % (1.7-9.3); Neutrophils # 2.3 K/mm3 (1.8-7.8); Neutrophils % 53.9 % (37.0-80.0); Platelet Count 165 K/mm3 (142-424); Red Blood Count 4.92 M/mm3 (4.20-5.40); Red Cell Distribution Width 13.2 % (11.5-17.5); White Blood Count 4.3 K/mm3 (4.8-10.8)
[2020-02-01 11:29] LABS: Appearance,Urine CLEAR (Clear); Bilirubin,Urine Negative (Negative); Blood, Urine Negative (Negative); Color,Urine YELLOW (Yellow); Glucose,Urine (UA) Negative (Negative); Ketones,Urine Negative (Negative); Leukocyte Esterase,Urine 1+ (Negative); Nitrate,Urine Negative (Negative); PH,Urine 7.5 (5.0-8.5); Protein,Urine Negative (Negative); Urobilinogen,Urine 0.2 EU/dl (0.2)
[2020-02-01 11:54] LABS: Albumin Level 4.1 g/dl (3.5-5.0); Anion Gap 11.5 mEq/L (5-15); Blood Urea Nitrogen 12 mg/dl (7-17); Calcium 9.5 mg/dl (8.4-10.2); Carbon Dioxide 30 mmol/L (22.0-30.0); Chloride 105 mmol/L (98-107); Estimated Glomerular Filt Rate 76 ml/min (>60); GFR (African American) 92 ML/MIN (>60); Glucose 82 mg/dl (74-100); Phosphorous 4.6 mg/dl (2.5-4.5); Potassium 4.5 mmoL/L (3.5-5.1); Sodium 142 mmol/L (136-145)
[2020-02-01 11:57] LABS: Chloride 104 mmol/L (98-107); Potassium 4.2 mmoL/L (3.5-5.1); Sodium 142 mmol/L (136-145)
[2020-02-01 11:59] LABS: Alanine Aminotransferase 8 U/L (12-78); Alkaline Phosphatase 48 U/L (38-126); Aspartate Amino Transferase 15 U/L (14-36); Bilirubin,Total 0.6 mg/dl (0.2-1.3); Blood Urea Nitrogen 12 mg/dl (7-17); Estimated Glomerular Filt Rate 66 ml/min (>60); GFR (African American) 80 ML/MIN (>60)
[2020-02-01 12:00] LABS: Albumin/Globulin Ratio 1.4 (1.1-1.8); Anion Gap 9.2 mEq/L (5-15); Calcium 9.5 mg/dl (8.4-10.2); Carbon Dioxide 33 mmol/L (22.0-30.0); Globulin 2.9 g/dL (1.3-3.2); Glucose 84 mg/dl (74-100); Total Protein,Serum 6.9 g/dl (6.3-8.2)
[2020-02-01 12:08] LABS: Bacteria,Urine 1+ /lpf; Intact Parathyroid Hormone 32.7 pg/mL (7.5-53.5)
[2020-02-01 12:12] LABS: 25-OH Vitamin D, Total 43.6 ng/mL (30-100)
[2020-02-01 12:18] LABS: Creatinine,Urine Random 102 mg/dL (Not Estab.)
== END ==
PROVIDERS: Nurse Practitioner Family; Visit Provider Internal Medicine Nephrology
DX: G40.909 Epilepsy, unspecified, not intractable, without status epilepticus (principal); Z79.899 Other long term (current) drug therapy; N39.0 Urinary tract infection, site not specified
CPT/HCPCS: 36415; 80053; 80069; 81001; 82306; 82570; 83970; 84155; 85025; 87086

== ENCOUNTER → 2020-02-08 14:41 | Outpatient (POV) | payer MEDICAID, SELFPAY | PROVIDERS: Visit Provider Internal Medicine Nephrology | DX: Z00.00 Encounter for general adult medical examination without abnormal findings (principal) ==

== ENCOUNTER → 2020-03-02 14:50 | Outpatient (CLI) | payer MEDICAID, SELFPAY ==
--- NOTE | 2020-03-02 14:55 | XR_ITS ---
PROCEDURE: XR KNEE RT 2V CLINICAL INDICATION: knee pain COMPARISON: CR [id number] XR knee LT 3V from 08/13/2018 CR [id number] XR knee RT 3V from 08/13/2018 DX XR KNEE RT 4V from 02/02/2019 DX XR KNEE LT 4V from 02/02/2019 FINDINGS: Moderate osteoarthritic changes are present at the medial compartment and patellofemoral joint. These findings appear worse compared to the previous exam. Calcific density is present in the suprapatellar region slightly lateral similar to the previous exam. IMPRESSION: Moderate osteoarthritic changes which are slightly worse Dictated by: Timothy Desai MD 03/02/2020 15:25 Timothy Desai MD in [place] 03/02/2020 15:25
--- NOTE | 2020-03-02 14:55 | XR_ITS ---
PROCEDURE: XR KNEE LT 2V CLINICAL INDICATION: knee pain COMPARISON: CR [id number] XR knee LT 3V from 08/13/2018 CR [id number] XR knee RT 3V from 08/13/2018 DX XR KNEE RT 4V from 02/02/2019 DX XR KNEE LT 4V from 02/02/2019 FINDINGS: There are [id number] osteoarthritic changes involving all 3 compartments not significantly changed No fracture or dislocation. Other findings:None. IMPRESSION: No change mild to moderate osteoarthritic changes Dictated by: Timothy Desai MD 03/02/2020 15:27 Timothy Desai MD in [place] 03/02/2020 15:27
== END ==
PROVIDERS: PCP Nurse Practitioner Family; Visit Provider Nurse Practitioner Family
DX: M25.562 Pain in left knee (principal); M25.561 Pain in right knee; G89.29 Other chronic pain
CPT/HCPCS: 73560

== ENCOUNTER → 2020-03-21 12:32 | Outpatient (CLI) | payer MEDICAID, SELFPAY ==
--- NOTE | 2020-03-21 12:36 | XR_ITS ---
PROCEDURE: XR KNEE RT 4V CLINICAL INDICATION: BL knee pain COMPARISON: DX XR KNEE RT 4V from 02/02/2019 DX XR KNEE LT 4V from 02/02/2019 CR XR KNEE RT 2V from 03/02/2020 CR XR KNEE LT 2V from 03/02/2020 FINDINGS: No fracture or dislocation. No lytic or blastic change. There is normal mineralization. There are moderate osteoarthritic changes of the medial compartment with mild osteoarthritis of the lateral compartment and patellofemoral joint. A calcification is present along the distal aspect the femur in the soft tissues laterally measuring 15 mm. Other findings:None. IMPRESSION: Osteoarthritic changes. Nonspecific soft tissue calcification similar to the previous exam Dictated by: Timothy Desai MD 03/21/2020 14:51 Timothy Desai MD in [place] 03/21/2020 14:51
--- NOTE | 2020-03-21 12:36 | XR_ITS ---
PROCEDURE: XR KNEE LT 4V CLINICAL INDICATION: BL knee pain COMPARISON: DX XR KNEE RT 4V from 02/02/2019 DX XR KNEE LT 4V from 02/02/2019 CR XR KNEE RT 2V from 03/02/2020 CR XR KNEE LT 2V from 03/02/2020 FINDINGS: There are moderate osteoarthritic changes involving all 3 compartments which have progressed compared to the previous exam. No acute fracture or dislocation. No lytic or blastic change. Other findings:None. IMPRESSION: Moderate osteoarthritis which has progressed compared to the previous exam. Dictated by: Timothy Desai MD 03/21/2020 14:47 Timothy Desai MD in [place] 03/21/2020 14:47
== END ==
PROVIDERS: PCP Nurse Practitioner Family; Visit Provider Orthopaedic Surgery
DX: M25.562 Pain in left knee (principal); M25.561 Pain in right knee
CPT/HCPCS: 73564

== ENCOUNTER → 2020-03-30 09:23 | Outpatient (CLI) | payer MEDICAID, SELFPAY ==
[2020-03-30 10:30] LABS: Valproic Acid, (Depakene) 57.7 ug/ml (50-100)
[2020-04-14 15:42] LABS: Free Valproic Acid (Depakote) 7.9
== END ==
PROVIDERS: Visit Provider Specialist
DX: R56.9 Unspecified convulsions (principal); Z51.81 Encounter for therapeutic drug level monitoring
CPT/HCPCS: 36415; 80164; 80165

== ENCOUNTER → 2020-08-26 16:43 | Outpatient (CLI) | payer OTHER, SELFPAY ==
[2020-08-26 17:56] LABS: Barbiturates Screen,Urine Negative ng/ml (<200)
[2020-08-26 17:57] LABS: Amphetamine/Metha Screen,Urine Negative ng/ml (<1000)
[2020-08-26 17:58] LABS: Benzodiazepines Screen,Urine Negative ng/ml (<200); Cocaine Screen,Urine Negative ng/ml (<300)
[2020-08-26 17:59] LABS: Cannabinoid Screen,Urine Negative ng/ml (<50); Methadone Screen,Urine Negative ng/ml (<300)
[2020-08-26 18:00] LABS: Opiate Screen,Urine Negative ng/ml (<300)
[2020-08-26 18:01] LABS: Phencyclidine Screen,Urine Negative ng/ml (<25)
== END ==
PROVIDERS: Visit Provider Nurse Practitioner Family
DX: M54.10 Radiculopathy, site unspecified (principal)
CPT/HCPCS: 80305

== ENCOUNTER → 2020-08-29 11:39 | Outpatient (CLI) | payer OTHER, SELFPAY ==
[2020-08-29 11:43] LABS: Microscopic, Urine URINE MICROSCOPIC (MICROSCOPIC)
[2020-08-29 12:13] LABS: Basophils % 0.7 % (0.1-2.0); Eosinophils # 0.2 K/mm3 (0.0-0.4); Eosinophils % 4.6 % (0.1-12.0); Hematocrit 43.1 % (37.0-47.0); Lymphocytes # 1.5 K/mm3 (0.7-4.5); Lymphocytes % 44.1 % (10-50); Mean Corpuscular HGB Conc 32.6 g/dL (31.8-35.4); Mean Corpuscular Hemoglobin 30.3 pg (27.0-31.2); Mean Platelet Volume 8.2 fl (7.4-10.4); Monocytes # 0.2 K/mm3 (0.1-1.0); Monocytes % 4.5 % (1.7-9.3); Neutrophils # 1.6 K/mm3 (1.8-7.8); Platelet Count 142 K/mm3 (142-424); Red Blood Count 4.63 M/mm3 (4.20-5.40); Red Cell Distribution Width 12.9 % (11.5-17.5); White Blood Count 3.4 K/mm3 (4.8-10.8)
[2020-08-29 12:57] LABS: Appearance,Urine CLEAR (Clear); Bilirubin,Urine Negative (Negative); Blood, Urine Negative (Negative); Color,Urine YELLOW (Yellow); Glucose,Urine (UA) Negative (Negative); Ketones,Urine TRACE (Negative); Leukocyte Esterase,Urine 1+ (Negative); Nitrate,Urine Negative (Negative); Protein,Urine Negative (Negative); Specific Gravity, Urine 1.025 (1.005-1.030)
[2020-08-29 12:59] LABS: Albumin Level 3.7 g/dl (3.5-5.0); Blood Urea Nitrogen 11 mg/dl (7-17); Calcium 8.8 mg/dl (8.4-10.2); Carbon Dioxide 26 mmol/L (22.0-30.0); Chloride 108 mmol/L (98-107); Estimated Glomerular Filt Rate 58 ml/min (>60); GFR (African American) 70 ML/MIN (>60); Glucose 95 mg/dl (74-100); Phosphorous 3.4 mg/dl (2.5-4.5); Sodium 141 mmol/L (136-145)
[2020-08-29 13:05] LABS: Creatinine,Urine Random 163 mg/dL (Not Estab.)
[2020-08-29 13:17] LABS: Bacteria,Urine 2+ /lpf
== END ==
PROVIDERS: Visit Provider Internal Medicine Nephrology
DX: R79.89 Other specified abnormal findings of blood chemistry (principal)
CPT/HCPCS: 36415; 80069; 81001; 82570; 84155; 85025; 87086

== ENCOUNTER → 2020-09-05 14:56 | Outpatient (POV) | payer OTHER, SELFPAY | PROVIDERS: Visit Provider Internal Medicine Nephrology | DX: Z00.00 Encounter for general adult medical examination without abnormal findings (principal) ==

== ENCOUNTER → 2020-09-09 09:56 | Outpatient (CLI) | payer OTHER, SELFPAY ==
--- NOTE | 2020-09-09 09:57 | CA_ITS ---
APPROVED REPORT EXAM: Comprehensive 2D, Doppler, and color-flow Echocardiogram House Player: Celia Hawk CRT Ht: 5 ft 6 in Wt: 244lbs BSA: 2.18 BP: 118/86 mmHg Indications: Peripheral Edema, Hyperlipidemia, Hypertension/HDD 2D Dimensions LVOT 1.94 cm (M/F) 1.5-2.5 LA Volume 38.50 mL LA Volume Index 17.70 mL/m2 (M/F) 16-34 M-Mode Dimensions RVDd 2.14 cm (0.9-2.6) LA Diam 3.46 cm (1.9-4.0) LVDd 4.53 cm (3.5-5.7) Ao Diam 3.55 cm (2.0-3.7) LVDs 2.96 cm (3.5-5.7) IVSd 1.64 cm (0.6-1.1) PWd 1.00 cm (0.6-1.1) EF (Teich) 63.90% FS 34.70% EDV (Teich) 93.90 mL TAPSE 2.21 (<1.7) ESV (Teich) 33.90 mL LV Diastology E Decel Time 237.00 (160-240 msec) E/A Ratio 0.88 MED E' 6.20 (< 7 cm/sec) MED A' 9.70 cm/s E'/MED E' Ratio 11.60 (>14) LAT E' 7.30 (<10 cm/sec) LAT A' 12.70 cm/s E/LAT E' Ratio 9.85 (>14) Aortic Valve AO Peak GR. 6.70 mmHg Mitral Valve MV A Velocity 82.00 (40-130 cm/s) E/A Ratio 0.88 MV Decel. Time 237.00 (160-240 ms) Pulmonary Valve PV Peak Velocity 71.00 (50-150 cm/s) Tricuspid Valve TR P. Velocity 257.00 cm/s RAP Estimate 10.00 mmHg RVSP 36.50 mmHg Left Ventricle Left atrium is mildly enlarged, left ventricle is normal size, mild concentric left ventricular hypertrophy, visually estimated ejection fraction 55% with no regional wall motion abnormality. Grade 1 diastolic dysfunction seen without tissue Doppler evidence of raise left atrial pressure. Right Ventricle Right atrium and right ventricle are normal size and contractility. Aortic Valve Aortic valve is minimally thickened and fibrosed, there is no aortic stenosis or aortic insufficiency. Mitral Valve Mitral valve is grossly normal, there is trace mitral regurgitation. Tricuspid Valve Tricuspid grossly normal, there is trace tricuspid regurgitation tricuspid regurgitation jet velocity is inadequate for calculation of the right ventricular systolic pressure. Pulmonic Valve Pulmonic valve is poorly visualized. Great Vessels Aortic root is normal size. Pericardium No significant pericardial effusion noted. Conclusion 1. Mildly enlarged left atrium, normal left ventricular size, mild concentric left ventricular hypertrophy, visually estimated ejection fraction 55% with no regional wall motion abnormality, grade 1 diastolic dysfunction seen without tissue Doppler evidence of raise left atrial pressure. 2. Trace mitral and tricuspid regurgitation. 3. No significant pericardial effusion noted. Electronically signed by : Jimbo Zuleta, 09/09/2020 11:19:54
== END ==
PROVIDERS: PCP Nurse Practitioner Family; Visit Provider Nurse Practitioner Family
DX: R60.0 Localized edema (principal)
CPT/HCPCS: 93306

== ENCOUNTER → 2020-09-22 06:46 | Outpatient (CLI) | payer OTHER, SELFPAY ==
--- NOTE | 2020-09-22 06:48 | CA_ITS ---
APPROVED REPORT Exam: Pharmacologic Technologist: Che Singleton, Ht: 5 ft 6 in Wt: 238 lbs BSA: 2.15 m2 HR: 52 bpm BP: 161/74 mmHg Rhythm: Bradycardia Indications: Abnormal ecg Stress Test Details Test: LEXISCAN HR Resting HR: 60 bpm Max Heart Rate (APMHR): 168.099705 bpm Max HR Achieved: 88 bpm Target HR (85% APMHR): 142.878308 bpm % of APMHR: 52.38 Recovery HR: 68 bpm BP Resting BP: 161/74 mmHg Max BP: 161/74 mmHg Recovery BP: 155.0/76.[address] Change: Horizontal ST depression, Upsloping ST depression Clinical Reason for Termination: Completed protocol Stress Symptoms: General Fatigue, Dyspnea, Chest pain Exercise duration: 04:03 min Highest Stage Achieved: Stress ECG Conclusion Symptoms : SOA, malaise,mild chest pressure No ectopy No ST-T changes. Unremarkable Lexiscan stress. Myoview images reported separately. Electronically signed by : Jimbo Zuleta, 09/22/2020 15:05:06
--- NOTE | 2020-09-22 06:48 | NM_ITS ---
APPROVED REPORT Exam: Nuclear Stress Test Indication: chest pain Patient Location: Outpatient Stress Tech: Che Singleton [place] Tech:OLIVIA Fonseca RT(R)(N) Ht: 5 ft 6 in Wt: 240 lbs Bra Size: 44dd HR: 52 bpm BP: 161/74 mmHg BSA: 2.16 m2 BMI: 38.7 History: chest pain Procedure: Patient received a 0.4 mg of intravenous Lexiscan, resting heart rate 52 bpm, resting blood pressure 161/74 mmHg, with Lexiscan maximum heart rate achived was 80 bpm which is 85 % of the maximum predicted heart rate and blood pressure was 160/76 mmHg. Electrocardiogram Resting electrocardiogram showed sinus rhythm, with Lexiscan there is less than 1.[address] segment depression noted from the baseline EKG. The EKG portion of the Lexiscan is nondiagnostic. Cardiac Stress and Resting SPECT Images: Cardiac Stress and Resting SPECT images were obtained using technetium 99m Myoview 31.6 mCi stress and 10.44 mCi at rest. Gated SPECT for analysis of segmental wall motion and calculation of the ejection fraction also done. Prone images were also obtained. Cardiac stress and rest SPECT images show decreased tracer activity in the anterior apical wall in a fixed pattern with reduced contractility gated SPECT is likely secondary to nontransmural myocardial scarring, computer derived ejection fraction is 54% with moderate anterior apical wall hypokinesis, right ventricle is normal size and contractility, this study is technically limited due to patient's body habitus. Conclusion: 1. The EKG portion of the Lexiscan is nondiagnostic. 2. Scintigraphic evidence of nontransmural myocardial scarring involving the anterior apical wall without significant keysha-infarct ischemia, computer derived ejection fraction is 54% with segmental wall motion abnormality described above, right ventricle is normal size and contractility. There is also mild transient ischemic dilatation of the left ventricle seen. This study is technically limited due to patient's body habitus 3. Abnormal Lexiscan Myoview study. Electronically signed by : Jimbo Zuleta, 09/22/2020 15:11:15
[2020-09-22 10:45] LABS: Anion Gap 8.5 mEq/L (5-15); Blood Urea Nitrogen 14 mg/dl (7-17); Calcium 8.8 mg/dl (8.4-10.2); Carbon Dioxide 29 mmol/L (22.0-30.0); Chloride 107 mmol/L (98-107); Estimated Glomerular Filt Rate 58 ml/min (>60); GFR (African American) 70 ML/MIN (>60); Glucose 83 mg/dl (74-100); Potassium 4.5 mmoL/L (3.5-5.1); Sodium 140 mmol/L (136-145)
== END ==
PROVIDERS: PCP Nurse Practitioner Family; Visit Provider Urology
DX: R60.0 Localized edema (principal); R94.31 Abnormal electrocardiogram [ECG] [EKG]; Z82.49 Family history of ischemic heart disease and other diseases of the circulatory system
CPT/HCPCS: 36415; 78452; 80048; 93017; A9502; J2785

== ENCOUNTER → 2020-10-21 11:24 | Outpatient (CLI) | payer OTHER, SELFPAY ==
[2020-10-21 11:42] LABS: Basophils % 0.8 % (0.1-2.0); Eosinophils # 0.2 K/mm3 (0.0-0.4); Hematocrit 43.4 % (37.0-47.0); Hemoglobin 14.4 g/dL (12.2-16.2); Lymphocytes # 1.8 K/mm3 (0.7-4.5); Lymphocytes % 46.8 % (10-50); Mean Corpuscular HGB Conc 33.2 g/dL (31.8-35.4); Mean Corpuscular Hemoglobin 30.9 pg (27.0-31.2); Mean Platelet Volume 7.9 fl (7.4-10.4); Monocytes # 0.2 K/mm3 (0.1-1.0); Monocytes % 4.6 % (1.7-9.3); Neutrophils # 1.7 K/mm3 (1.8-7.8); Neutrophils % 43.9 % (37.0-80.0); Platelet Count 146 K/mm3 (142-424); Red Blood Count 4.67 M/mm3 (4.20-5.40); Red Cell Distribution Width 13.4 % (11.5-17.5); White Blood Count 3.9 K/mm3 (4.8-10.8)
== END ==
PROVIDERS: Visit Provider Urology
DX: Z01.812 Encounter for preprocedural laboratory examination (principal); Z11.52 Encounter for screening for COVID-19; I10 Essential (primary) hypertension; R60.0 Localized edema; R94.30 Abnormal result of cardiovascular function study, unspecified; R94.31 Abnormal electrocardiogram [ECG] [EKG]; Z82.49 Family history of ischemic heart disease and other diseases of the circulatory system
CPT/HCPCS: 36415; 85025; U0003

== ENCOUNTER 2020-10-24 07:53 | Day surgery (SDC) | payer OTHER, SELFPAY ==
[2020-10-24] VITALS (13 sets, daily range): BP systolic 103–151; BP diastolic 57–85; PULSE 54–79; RESP 16–18; TEMP 36.8; O2SAT 92–99; BMI 38.4
--- NOTE | 2020-10-24 | IR_ITS ---
APPROVED REPORT Patient Location: Outpatient PROCEDURES Left heart catheterization Left ventriculogram Selective coronary gram INDICATION High risk abnormal Myoview Informed consent was obtained prior to the procedure. COMPLICATIONS None Estimated Blood Loss: Less than 10 mls TECHNIQUE One percent lidocaine used to anesthetize the right anterior aspect of the wrist. The right radial artery was accessed via the Seldinger technique. A 6 [place] sheath was placed in the right radial artery. 2.5 mg of verapamil, 800 mcg of nitroglycerin, 1mg Lidocaine and 5000 U Heparin were given through the arterial sheath. The trap catheter was also used to perform left heart catheterization, left ventriculogram and selective coronary angiogram. At the end of the procedure the sheath was removed good hemostasis was achieved using Traclet band, patient was transferred to the postop holding area in stable condition. ANGIOGRAPHIC RESULTS The left main artery Normal The left anterior descending artery Normal The circumflex artery Normal The right coronary artery Dominant normal The COLVIN ventriculogram reveals Normal 65% The left ventricular end-diastolic pressure 10 mmHg IMPRESSION Normal coronary arteries Normal ejection fraction Normal left ventricular and SI pressure PLAN 1. Medical management 2. Evaluation of noncardiac symptoms Electronically signed by : Ashu Carmona, 10/24/2020 12:07:05
== END 2020-10-24 14:25 | disposition home or self-care (01) ==
PROVIDERS: PCP Nurse Practitioner Family; Visit Provider Internal Medicine
DX: R07.9 Chest pain, unspecified (principal); R94.39 Abnormal result of other cardiovascular function study; I10 Essential (primary) hypertension; R60.0 Localized edema; Z82.49 Family history of ischemic heart disease and other diseases of the circulatory system; E78.5 Hyperlipidemia, unspecified
CPT/HCPCS: 93458; 99152; C1725; C1769; J1644; Q9967

== ENCOUNTER → 2021-05-24 08:28 | Outpatient (CLI) | payer OTHER, SELFPAY ==
[2021-05-24 10:33] LABS: Alanine Aminotransferase 10 U/L (12-78); Albumin/Globulin Ratio 1.6 (1.1-1.8); Alkaline Phosphatase 37 U/L (38-126); Anion Gap 8.6 mEq/L (5-15); Aspartate Amino Transferase 18 U/L (14-36); Bilirubin,Total 0.4 mg/dl (0.2-1.3); Blood Urea Nitrogen 14 mg/dl (7-17); Calcium 9.6 mg/dl (8.4-10.2); Carbon Dioxide 32 mmol/L (22.0-30.0); Chloride 107 mmol/L (98-107); Estimated Glomerular Filt Rate 75 ml/min (>60); GFR (African American) 91 ML/MIN (>60); Globulin 2.5 g/dL (1.3-3.2); Glucose 85 mg/dl (74-100); Potassium 4.6 mmoL/L (3.5-5.1); Sodium 143 mmol/L (136-145); Total Protein,Serum 6.5 g/dl (6.3-8.2)
[2021-05-24 10:38] LABS: Valproic Acid, (Depakene) 53.4 ug/ml (50-100)
[2021-05-24 12:09] LABS: Basophils # 0.1 K/mm3 (0-0.2); Basophils % 2.9 % (0.1-2.0); Eosinophils # 0.2 K/mm3 (0.0-0.4); Hematocrit 47.1 % (37.0-47.0); Hemoglobin 15.2 g/dL (12.2-16.2); Lymphocytes # 1.7 K/mm3 (0.7-4.5); Lymphocytes % 43.3 % (10-50); Mean Corpuscular HGB Conc 32.2 g/dL (31.8-35.4); Mean Corpuscular Hemoglobin 31.3 pg (27.0-31.2); Mean Corpuscular Volume 97.1 fl (81-99); Mean Platelet Volume 8.8 fl (7.4-10.4); Monocytes # 0.3 K/mm3 (0.1-1.0); Monocytes % 6.5 % (1.7-9.3); Neutrophils # 1.7 K/mm3 (1.8-7.8); Neutrophils % 43.3 % (37.0-80.0); Platelet Count 189 K/mm3 (142-424); Red Blood Count 4.85 M/mm3 (4.20-5.40); Red Cell Distribution Width 14.2 % (11.5-17.5)
== END ==
PROVIDERS: PCP Internal Medicine Adolescent Medicine; Visit Provider Nurse Practitioner Family
DX: G40.909 Epilepsy, unspecified, not intractable, without status epilepticus (principal)
CPT/HCPCS: 36415; 80053; 80164; 80165; 85025

== ENCOUNTER → 2021-06-21 08:11 | Outpatient (CLI) | payer OTHER, SELFPAY ==
[2021-06-21 09:23] LABS: Valproic Acid, (Depakene) 59.1 ug/ml (50-100)
== END ==
PROVIDERS: Visit Provider Nurse Practitioner Family
DX: G40.909 Epilepsy, unspecified, not intractable, without status epilepticus (principal)
CPT/HCPCS: 36415; 80164

== ENCOUNTER → 2021-09-12 16:11 | Outpatient (CLI) | payer OTHER, SELFPAY ==
[2021-09-12 13:52] LABS: Alanine Aminotransferase 14 U/L (12-78); Albumin Level 3.9 g/dl (3.5-5.0); Albumin/Globulin Ratio 1.4 (1.1-1.8); Alkaline Phosphatase 50 U/L (38-126); Anion Gap 10.8 mEq/L (5-15); Aspartate Amino Transferase 19 U/L (14-36); Blood Urea Nitrogen 19 mg/dl (7-17); Calcium 9.7 mg/dl (8.4-10.2); Carbon Dioxide 30 mmol/L (22.0-30.0); Chloride 104 mmol/L (98-107); Chol/HDL Ratio 3.9 (1-3.5); Cholesterol 199 mg/dl (140-200); Estimated Glomerular Filt Rate 75 ml/min (>60); GFR (African American) 91 ML/MIN (>60); Globulin 2.7 g/dL (1.3-3.2); Glucose 96 mg/dl (74-100); HDL Cholesterol 51 mg/dl (40-60); Potassium 4.8 mmoL/L (3.5-5.1); Sodium 140 mmol/L (136-145); Total Protein,Serum 6.6 g/dl (6.3-8.2); Triglycerides 102 mg/dl (30-150); VLDL Cholesterol 20 mg/dL (0-40)
[2021-09-12 13:58] LABS: Bilirubin,Total < 0.1 mg/dl (0.2-1.3)
[2021-09-12 14:01] LABS: Basophils # 0.1 K/mm3 (0-0.2); Basophils % 1.5 % (0.1-2.0); Eosinophils # 0.2 K/mm3 (0.0-0.4); Hematocrit 45.8 % (37.0-47.0); Hemoglobin 15.1 g/dL (12.2-16.2); Lymphocytes # 2.4 K/mm3 (0.7-4.5); Mean Corpuscular Hemoglobin 30.7 pg (27.0-31.2); Mean Corpuscular Volume 93.2 fl (81-99); Mean Platelet Volume 8.2 fl (7.4-10.4); Monocytes # 0.3 K/mm3 (0.1-1.0); Monocytes % 6.6 % (1.7-9.3); Neutrophils # 2.1 K/mm3 (1.8-7.8); Neutrophils % 40.9 % (37.0-80.0); Platelet Count 199 K/mm3 (142-424); Red Blood Count 4.92 M/mm3 (4.20-5.40); Red Cell Distribution Width 14.2 % (11.5-17.5); White Blood Count 5.2 K/mm3 (4.8-10.8)
[2021-09-12 14:03] LABS: Direct LDL Cholesterol 106.58 mg/dL (100-129)
[2021-09-12 14:07] LABS: T4 (Thyroxine) 8.6 ug/dl (5.53-11.0)
[2021-09-12 14:08] LABS: 25-OH Vitamin D, Total 41.7 ng/mL (30-100)
[2021-09-12 14:21] LABS: Thyroid Stimulating Hormone 3.14 uIU/mL (0.465-4.68)
[2021-09-23 18:54] LABS: Free Valproic Acid (Depakote) 11.1
== END ==
PROVIDERS: PCP Nurse Practitioner Family; Visit Provider Nurse Practitioner Family
DX: I10 Essential (primary) hypertension (principal); E87.6 Hypokalemia; R53.83 Other fatigue; R56.9 Unspecified convulsions; E66.3 Overweight; Z68.34 Body mass index [BMI] 34.0-34.9, adult
CPT/HCPCS: 80053; 80061; 80165; 82306; 84436; 84443; 85025

== ENCOUNTER → 2021-09-22 10:38 | Outpatient (CLI) | payer OTHER, SELFPAY ==
--- NOTE | 2021-09-22 10:40 | MM_ITS ---
PROCEDURE INFORMATION: Exam: MG Bilateral Screening 3D Mammography Exam date and time: 09/22/2021 10:35 AM Age: 51 years old Clinical indication: Screening. No family history of breast cancer. TECHNIQUE: Imaging protocol: Bilateral Screening tomosynthesis and 2D mammography including computer-aided detection (CAD) when performed. COMPARISON: 1. MG DMSB DIG MAMM-SCREEN [facility]ANNA[facility] W/CAD 01/09/2017 3:52 PM 2. MG DMDB DIG MAMM-DX HANNAH 12/30/2015 3:27 PM 3. MG DMBAV DIG MAMM- [facility] ADD VIEWS 06/29/2015 2:43 PM 4. MG DMSB DIG MAMM-SCREEN HANNAH 06/15/2015 8:20 AM FINDINGS: MAMMOGRAPHY: Breast composition: The breasts are almost entirely fatty. Mass: No suspicious mass. Architectural distortion: None. Calcifications: No suspicious calcifications. Asymmetric density: None. Skin thickening: None. Axillary adenopathy: None. IMPRESSION: No mammographic evidence of malignancy. Annual screening is recommended unless otherwise clinically indicated. ASSESSMENT: BI-RADS Category 1: Negative
== END ==
PROVIDERS: PCP Nurse Practitioner Family; Visit Provider Nurse Practitioner Family
DX: Z12.31 Encounter for screening mammogram for malignant neoplasm of breast (principal)
CPT/HCPCS: 77063; 77067

== ENCOUNTER → 2021-10-30 08:08 | Outpatient (CLI) | payer OTHER, SELFPAY ==
[2021-10-30 08:15] LABS: Microscopic, Urine URINE MICROSCOPIC (MICROSCOPIC)
[2021-10-30 08:45] LABS: Basophils # 0.1 K/mm3 (0-0.2); Basophils % 1.8 % (0.1-2.0); Eosinophils # 0.2 K/mm3 (0.0-0.4); Eosinophils % 3.6 % (0.1-12.0); Hematocrit 47.1 % (37.0-47.0); Hemoglobin 13.9 g/dL (12.2-16.2); Lymphocytes # 2.8 K/mm3 (0.7-4.5); Lymphocytes % 47.4 % (10-50); Mean Corpuscular HGB Conc 29.5 g/dL (31.8-35.4); Mean Corpuscular Hemoglobin 28.4 pg (27.0-31.2); Mean Corpuscular Volume 96.3 fl (81-99); Mean Platelet Volume 8.1 fl (7.4-10.4); Monocytes # 0.3 K/mm3 (0.1-1.0); Monocytes % 5.6 % (1.7-9.3); Neutrophils # 2.4 K/mm3 (1.8-7.8); Neutrophils % 41.5 % (37.0-80.0); Platelet Count 213 K/mm3 (142-424); Red Blood Count 4.89 M/mm3 (4.20-5.40); Red Cell Distribution Width 14.6 % (11.5-17.5); White Blood Count 5.8 K/mm3 (4.8-10.8)
[2021-10-30 09:02] LABS: Appearance,Urine CLEAR (Clear); Bilirubin,Urine Negative (Negative); Blood, Urine Negative (Negative); Color,Urine YELLOW (Yellow); Glucose,Urine (UA) Negative (Negative); Ketones,Urine Negative (Negative); Leukocyte Esterase,Urine 3+ (Negative); Nitrate,Urine Negative (Negative); Protein,Urine Negative (Negative)
[2021-10-30 09:05] LABS: Bacteria,Urine 4+ /lpf; WBC,Urine 20-50 #/hpf (0-3)
[2021-10-30 09:07] LABS: Albumin Level 3.9 g/dl (3.5-5.0); Blood Urea Nitrogen 16 mg/dl (7-17); Calcium 9.3 mg/dl (8.4-10.2); Carbon Dioxide 32 mmol/L (22.0-30.0); Chloride 104 mmol/L (98-107); Estimated Glomerular Filt Rate 75 ml/min (>60); GFR (African American) 91 ML/MIN (>60); Glucose 89 mg/dl (74-100); Phosphorous 5.1 mg/dl (2.5-4.5); Sodium 141 mmol/L (136-145)
[2021-10-30 09:19] LABS: Intact Parathyroid Hormone 29.7 pg/mL (7.5-53.5)
[2021-10-30 09:24] LABS: 25-OH Vitamin D, Total 41.6 ng/mL (30-100)
[2021-10-30 10:17] LABS: Creatinine,Urine Random 177 mg/dL (Not Estab.)
== END ==
PROVIDERS: PCP Nurse Practitioner Family; Visit Provider Internal Medicine Nephrology
DX: Z01.818 Encounter for other preprocedural examination (principal); N18.2 Chronic kidney disease, stage 2 (mild); E55.9 Vitamin D deficiency, unspecified
CPT/HCPCS: 36415; 80069; 81001; 82306; 82570; 83970; 84155; 85025; 87086

== ENCOUNTER → 2021-11-02 15:26 | Outpatient (POV) | payer OTHER, SELFPAY | PROVIDERS: Visit Provider Internal Medicine Nephrology | DX: Z00.00 Encounter for general adult medical examination without abnormal findings (principal) ==

== ENCOUNTER → 2021-12-15 08:21 | Outpatient (CLI) | payer OTHER, SELFPAY ==
--- NOTE | 2021-12-15 08:24 | XR_ITS ---
FINAL REPORT CLINICAL HISTORY: R KNEE PAIN COMPARISON: March 21, 2020 FINDINGS: RIGHT KNEE: Four views of the right knee obtained. There is no acute fracture or dislocation. There are moderate and severe degenerative changes. There is severe medial compartment narrowing similar to the prior exam. There is a 19 mm calcification lateral to the distal femur the may represent a loose body or soft tissue calcification. IMPRESSION: Moderate and severe degenerative changes. Calcification lateral to the distal femur, may represent a loose body or soft tissue calcification. Reviewed, Interpreted and Dictated by Christiano Lynn III, MD Transcribed by Ainsley Sheikh Authenticated and . [facility]
== END ==
PROVIDERS: PCP Nurse Practitioner Family; Visit Provider Nurse Practitioner Family
DX: M25.561 Pain in right knee (principal)
CPT/HCPCS: 73564

== ENCOUNTER → 2021-12-29 08:18 | Outpatient (CLI) | payer OTHER, SELFPAY ==
--- NOTE | 2021-12-29 08:25 | XR_ITS ---
FINAL REPORT CLINICAL HISTORY: knee pain COMPARISON: March 21, 2020 FINDINGS: Three views of the left knee reveal no evidence of fracture or dislocation. The bony alignment is normal. There are mild and moderate degenerative changes. There is medial compartment joint space narrowing. No joint effusion is seen. There is a 14 mm loose body in the suprapatellar recess. IMPRESSION: Mild and moderate degenerative changes with a 14 mm loose body in the suprapatellar recess. Reviewed, Interpreted and Dictated by Christiano Lynn III, MD Transcribed by Prem Zepeda Authenticated and [facility]
== END ==
PROVIDERS: PCP Nurse Practitioner Family; Visit Provider Orthopaedic Surgery
DX: M25.562 Pain in left knee (principal)
CPT/HCPCS: 73562

== ENCOUNTER → 2022-05-22 15:25 | Outpatient (CLI) | payer OTHER, SELFPAY | PROVIDERS: Visit Provider Nurse Practitioner Family | DX: G40.909 Epilepsy, unspecified, not intractable, without status epilepticus (principal) ==

== ENCOUNTER → 2022-05-23 09:40 | Outpatient (CLI) | payer OTHER, SELFPAY ==
[2022-05-23 16:04] LABS: Amphetamine/Metha Screen,Urine Negative ng/ml (<1000)
[2022-05-23 16:05] LABS: Barbiturates Screen,Urine Negative ng/ml (<200)
[2022-05-23 16:06] LABS: Benzodiazepines Screen,Urine Negative ng/ml (<200); Cannabinoid Screen,Urine Negative ng/ml (<50)
[2022-05-23 16:07] LABS: Cocaine Screen,Urine Negative ng/ml (<300); Methadone Screen,Urine Negative ng/ml (<300)
[2022-05-23 16:08] LABS: Opiate Screen,Urine Negative ng/ml (<300)
[2022-05-23 16:09] LABS: Phencyclidine Screen,Urine Negative ng/ml (<25)
== END ==
PROVIDERS: PCP Nurse Practitioner Family; Visit Provider Nurse Practitioner Family
DX: Z79.899 Other long term (current) drug therapy (principal)
CPT/HCPCS: 80305

== ENCOUNTER → 2022-06-04 08:24 | Outpatient (CLI) | payer OTHER, SELFPAY ==
[2022-06-04 09:09] LABS: Basophils # 0.1 K/mm3 (0-0.2); Basophils % 1.4 % (0.1-2.0); Eosinophils # 0.2 K/mm3 (0.0-0.4); Eosinophils % 3.8 % (0.1-12.0); Hematocrit 44.8 % (37.0-47.0); Hemoglobin 14.4 g/dL (12.2-16.2); Lymphocytes # 2.5 K/mm3 (0.7-4.5); Lymphocytes % 48.1 % (10-50); Mean Corpuscular HGB Conc 32.2 g/dL (31.8-35.4); Mean Corpuscular Hemoglobin 29.8 pg (27.0-31.2); Mean Corpuscular Volume 92.7 fl (81-99); Mean Platelet Volume 7.8 fl (7.4-10.4); Monocytes # 0.2 K/mm3 (0.1-1.0); Monocytes % 4.6 % (1.7-9.3); Neutrophils # 2.2 K/mm3 (1.8-7.8); Neutrophils % 42.1 % (37.0-80.0); Platelet Count 204 K/mm3 (142-424); Red Blood Count 4.83 M/mm3 (4.20-5.40); Red Cell Distribution Width 13.9 % (11.5-17.5); White Blood Count 5.1 K/mm3 (4.8-10.8)
[2022-06-04 10:01] LABS: Alanine Aminotransferase 14 U/L (12-78); Albumin Level 3.8 g/dl (3.5-5.0); Albumin/Globulin Ratio 1.4 (1.1-1.8); Alkaline Phosphatase 48 U/L (38-126); Aspartate Amino Transferase 18 U/L (14-36); Bilirubin,Total 0.4 mg/dl (0.2-1.3); Blood Urea Nitrogen 16 mg/dl (7-17); Calcium 8.5 mg/dl (8.4-10.2); Carbon Dioxide 28 mmol/L (22.0-30.0); Chloride 109 mmol/L (98-107); Estimated Glomerular Filt Rate 75 ml/min (>60); GFR (African American) 91 ML/MIN (>60); Globulin 2.8 g/dL (1.3-3.2); Glucose 76 mg/dl (74-100); Sodium 142 mmol/L (136-145); Total Protein,Serum 6.6 g/dl (6.3-8.2)
[2022-06-04 10:03] LABS: Chol/HDL Ratio 4.3 (1-3.5); Cholesterol 194 mg/dl (140-200); HDL Cholesterol 45 mg/dl (40-60); Triglycerides 110 mg/dl (30-150); VLDL Cholesterol 22 mg/dL (0-40)
[2022-06-04 10:07] LABS: Valproic Acid, (Depakene) 46.9 ug/ml (50-100)
[2022-06-04 10:14] LABS: Direct LDL Cholesterol 115.92 mg/dL (100-129)
[2022-06-04 10:17] LABS: 25-OH Vitamin D, Total 42.4 ng/mL (30-100)
[2022-06-04 10:34] LABS: Thyroid Stimulating Hormone 3.41 uIU/mL (0.465-4.68)
[2022-06-07 12:15] LABS: Levetiracetam (Keppra) 38.2 ug/mL (10.0-40.0)
== END ==
PROVIDERS: PCP Nurse Practitioner Family; Visit Provider Nurse Practitioner Family
DX: G40.909 Epilepsy, unspecified, not intractable, without status epilepticus (principal); R56.9 Unspecified convulsions; R53.83 Other fatigue; E66.9 Obesity, unspecified; Z68.36 Body mass index [BMI] 36.0-36.9, adult
CPT/HCPCS: 36415; 80053; 80061; 80164; 80177; 82306; 84443; 85025

== ENCOUNTER → 2022-07-06 08:11 | Outpatient (CLI) | payer OTHER, SELFPAY ==
[2022-07-06 08:30] LABS: Basophils # 0.1 K/mm3 (0-0.2); Basophils % 1.7 % (0.1-2.0); Eosinophils # 0.2 K/mm3 (0.0-0.4); Eosinophils % 4.3 % (0.1-12.0); Hemoglobin 14.8 g/dL (12.2-16.2); Lymphocytes # 2.1 K/mm3 (0.7-4.5); Lymphocytes % 48.2 % (10-50); Mean Corpuscular HGB Conc 32.9 g/dL (31.8-35.4); Mean Corpuscular Hemoglobin 30.7 pg (27.0-31.2); Mean Corpuscular Volume 93.2 fl (81-99); Monocytes # 0.3 K/mm3 (0.1-1.0); Monocytes % 5.9 % (1.7-9.3); Neutrophils # 1.7 K/mm3 (1.8-7.8); Neutrophils % 39.9 % (37.0-80.0); Platelet Count 165 K/mm3 (142-424); Red Blood Count 4.82 M/mm3 (4.20-5.40); Red Cell Distribution Width 14.1 % (11.5-17.5); White Blood Count 4.3 K/mm3 (4.8-10.8)
[2022-07-06 08:56] LABS: Chloride 106 mmol/L (98-107); Potassium 4.1 mmoL/L (3.5-5.1); Sodium 140 mmol/L (136-145)
[2022-07-06 08:59] LABS: Alanine Aminotransferase 15 U/L (12-78); Albumin Level 3.8 g/dl (3.5-5.0); Albumin/Globulin Ratio 1.4 (1.1-1.8); Alkaline Phosphatase 46 U/L (38-126); Anion Gap 9.1 mEq/L (5-15); Aspartate Amino Transferase 20 U/L (14-36); Bilirubin,Total 0.4 mg/dl (0.2-1.3); Blood Urea Nitrogen 17 mg/dl (7-17); Calcium 8.8 mg/dl (8.4-10.2); Carbon Dioxide 29 mmol/L (22.0-30.0); Estimated Glomerular Filt Rate 75 ml/min (>60); GFR (African American) 90 ML/MIN (>60); Globulin 2.8 g/dL (1.3-3.2); Glucose 85 mg/dl (74-100); Total Protein,Serum 6.6 g/dl (6.3-8.2)
[2022-07-06 09:04] LABS: Valproic Acid, (Depakene) 42.8 ug/ml (50-100)
== END ==
PROVIDERS: PCP Nurse Practitioner Family; Visit Provider Nurse Practitioner Family
DX: R56.9 Unspecified convulsions (principal); Z79.899 Other long term (current) drug therapy
CPT/HCPCS: 36415; 80053; 80164; 85025

== ENCOUNTER → 2022-08-16 09:09 | Outpatient (CLI) | payer OTHER, SELFPAY ==
[2022-08-16 09:55] LABS: Basophils % 0.5 % (0.1-2.0); Eosinophils # 0.2 K/mm3 (0.0-0.4); Eosinophils % 3.6 % (0.1-12.0); Hematocrit 45.2 % (37.0-47.0); Hemoglobin 14.4 g/dL (12.2-16.2); Lymphocytes % 48.5 % (10-50); Mean Corpuscular HGB Conc 31.9 g/dL (31.8-35.4); Mean Corpuscular Hemoglobin 30.1 pg (27.0-31.2); Mean Corpuscular Volume 94.3 fl (81-99); Mean Platelet Volume 7.9 fl (7.4-10.4); Monocytes # 0.2 K/mm3 (0.1-1.0); Monocytes % 5.6 % (1.7-9.3); Neutrophils # 1.7 K/mm3 (1.8-7.8); Neutrophils % 41.8 % (37.0-80.0); Platelet Count 128 K/mm3 (142-424); Red Cell Distribution Width 14.3 % (11.5-17.5); White Blood Count 4.1 K/mm3 (4.8-10.8)
[2022-08-16 10:30] LABS: Alanine Aminotransferase 25 U/L (12-78); Albumin Level 3.5 g/dl (3.5-5.0); Albumin/Globulin Ratio 1.5 (1.1-1.8); Alkaline Phosphatase 39 U/L (38-126); Anion Gap 7.3 mEq/L (5-15); Aspartate Amino Transferase 34 U/L (14-36); Bilirubin,Total 0.6 mg/dl (0.2-1.3); Blood Urea Nitrogen 15 mg/dl (7-17); Calcium 8.4 mg/dl (8.4-10.2); Carbon Dioxide 28 mmol/L (22.0-30.0); Chloride 109 mmol/L (98-107); Estimated Glomerular Filt Rate 75 ml/min (>60); GFR (African American) 90 ML/MIN (>60); Globulin 2.4 g/dL (1.3-3.2); Glucose 77 mg/dl (74-100); Potassium 4.3 mmoL/L (3.5-5.1); Sodium 140 mmol/L (136-145); Total Protein,Serum 5.9 g/dl (6.3-8.2)
[2022-08-20 18:09] LABS: Levetiracetam (Keppra) 35.9 ug/mL (10.0-40.0)
== END ==
PROVIDERS: PCP Nurse Practitioner Family; Visit Provider Nurse Practitioner Family
DX: R56.9 Unspecified convulsions (principal)
CPT/HCPCS: 36415; 80053; 80164; 80177; 85025

== ENCOUNTER → 2022-10-09 09:43 | Outpatient (CLI) | payer OTHER, SELFPAY ==
--- NOTE | 2022-10-09 09:43 | MM_ITS ---
PROCEDURE INFORMATION: Exam: MG Bilateral Screening 3D Mammography Exam date and time: 10/09/2022 9:36 AM Age: 52 years old Clinical indication: Screening examination TECHNIQUE: Imaging protocol: Bilateral Screening tomosynthesis and 2D mammography including computer-aided detection (CAD) when performed. COMPARISON: 1. MG MM DIG SCREENING MAMM BI W/CAD 09/22/2021 10:35 AM 2. MG DMSB DIG MAMM-SCREEN HANNAH W/CAD 01/09/2017 3:52 PM FINDINGS: MAMMOGRAPHY: Breast composition: There are scattered areas of fibroglandular density. Mass: None. Architectural distortion: None. Calcifications: No suspicious calcifications. Asymmetric density: None. Skin thickening: None. Axillary adenopathy: None. IMPRESSION: No mammographic evidence of malignancy. Annual screening is recommended unless otherwise clinically indicated. ASSESSMENT: BI-RADS Category 1: Negative
== END ==
PROVIDERS: PCP Nurse Practitioner Family; Visit Provider Nurse Practitioner Family
DX: Z12.31 Encounter for screening mammogram for malignant neoplasm of breast (principal)
CPT/HCPCS: 77063; 77067

== ENCOUNTER → 2022-11-01 13:33 | Outpatient (POV) | payer OTHER, SELFPAY | PROVIDERS: Visit Provider Specialist/Technologist | DX: Z00.00 Encounter for general adult medical examination without abnormal findings (principal) ==

== ENCOUNTER → 2022-11-09 10:25 | Outpatient (CLI) | payer OTHER, SELFPAY ==
[2022-11-09 10:39] LABS: Microscopic, Urine URINE MICROSCOPIC (MICROSCOPIC)
[2022-11-09 11:19] LABS: Hemoglobin 13.6 g/dL (12.2-16.2); Mean Corpuscular HGB Conc 32.3 g/dL (31.8-35.4); Mean Corpuscular Hemoglobin 30.7 pg (27.0-31.2); Mean Corpuscular Volume 95.1 fl (81-99); Platelet Count 210 K/mm3 (142-424); Red Blood Count 4.42 M/mm3 (4.20-5.40); Red Cell Distribution Width 13.8 % (11.5-17.5); White Blood Count 4.2 K/mm3 (4.8-10.8)
[2022-11-09 11:47] LABS: Creatinine,Urine Random 234 mg/dL (Not Estab.)
[2022-11-09 12:00] LABS: Albumin Level 3.9 g/dl (3.5-5.0); Blood Urea Nitrogen 11 mg/dl (7-17); Calcium 9.1 mg/dl (8.4-10.2); Carbon Dioxide 27 mmol/L (22.0-30.0); Chloride 108 mmol/L (98-107); Estimated Glomerular Filt Rate 75 ml/min (>60); GFR (African American) 90 ML/MIN (>60); Glucose 78 mg/dl (74-100); Phosphorous 4.2 mg/dl (2.5-4.5); Sodium 130 mmol/L (136-145)
[2022-11-09 12:13] LABS: Intact Parathyroid Hormone 34.9 pg/mL (7.5-53.5)
[2022-11-09 12:19] LABS: 25-OH Vitamin D, Total 41.7 ng/mL (30-100)
[2022-11-09 12:45] LABS: Appearance,Urine CLEAR (Clear); Bilirubin,Urine Negative (Negative); Blood, Urine Negative (Negative); Color,Urine YELLOW (Yellow); Glucose,Urine (UA) Negative (Negative); Ketones,Urine Negative (Negative); Leukocyte Esterase,Urine TRACE (Negative); Nitrate,Urine Negative (Negative); Protein,Urine Negative (Negative); Specific Gravity, Urine >= 1.030 (1.005-1.030)
[2022-11-09 13:40] LABS: Bacteria,Urine Trace /lpf; Squamous Epithelial Cell,Urine Occasional #/hpf (0-5); WBC,Urine Occasional #/hpf (0-3)
== END ==
PROVIDERS: PCP Nurse Practitioner Family; Visit Provider Internal Medicine Nephrology
DX: N18.2 Chronic kidney disease, stage 2 (mild) (principal); E55.9 Vitamin D deficiency, unspecified
CPT/HCPCS: 36415; 80069; 81001; 82306; 82570; 83970; 84155; 85014; 85018; 85048; 85049

== ENCOUNTER → 2022-11-19 10:41 | Outpatient (CLI) | payer OTHER, SELFPAY ==
[2022-11-19 12:45] LABS: Chloride 109 mmol/L (98-107); Potassium 4.2 mmoL/L (3.5-5.1); Sodium 140 mmol/L (136-145)
[2022-11-19 12:48] LABS: Anion Gap 13.2 mEq/L (5-15); Blood Urea Nitrogen 13 mg/dl (7-17); Calcium 9.4 mg/dl (8.4-10.2); Carbon Dioxide 22 mmol/L (22.0-30.0); Estimated Glomerular Filt Rate 75 ml/min (>60); GFR (African American) 90 ML/MIN (>60); Glucose 80 mg/dl (74-100)
== END ==
PROVIDERS: PCP Nurse Practitioner Family; Visit Provider Nurse Practitioner Family
DX: E87.1 Hypo-osmolality and hyponatremia (principal)
CPT/HCPCS: 36415; 80048

== ENCOUNTER 2023-02-18 14:53 | Emergency (ER) | payer OTHER, SELFPAY ==
[2023-02-18 15:15] VITALS: BP 158/94; PULSE 77; RESP 18; TEMP 36.6; O2SAT 99; BMI 36.6
--- NOTE | 2023-02-18 15:22 | EXP.UTC ---
Discharge Plan Disposition Patient Disposition: Home, Self-Care Condition: Good Prescriptions Prescriptions: New methocarbamol 500 mg tablet 500 mg PO TID Qty: 12 0RF etodolac 200 mg capsule 200 mg PO Q8H PRN (Reason: pain) Qty: 20 0RF No Action lacosamide 200 mg tablet 200 mg PO BID Qty: 60 2RF gabapentin 600 mg tablet 600 mg PO TID Qty: 90 2RF Referrals Follow up/Referrals: Provider,Referral, MD [Primary Care Provider] - See instructions Activity Restrictions/Add. Instructions Additional Instructions/Restrictions: Dont start Etodolac until tomorrow *Etodolac montez 8 hours with meal as needed for pain/inflammation *Remember you had a Toradol shot in the clinic today, which is similar to Motrin and Etodolac so do not take anymore tonight *Not additional anti-inflammatory like Ibuprofen motrin, aleve, advil with the above amount of Etodolac You can still take Tylenol every 4 hours as needed if you need something else for pain *Ice 20 minutes every 2 hours for the first 48 hours after the initial injury followed by moist heat every 20 minutes 3-4 times a day to affected area *Muscle relaxer every 8 hours as needed for muscle spasms but remember, it WILL cause drowsiness You cannot take it and drive, operate machinery or care for small children. *Keep this area active, no movement leads to more stiffness, However take it easy and avoid heavy lifting pushing or pulling *Follow up with you family doctor if no improvement for further treatment Clinical Impressions Clinical Impression: Low back pain Qualifiers: Chronicity: unspecified Back pain laterality: right Sciatica presence: without sciatica Qualified Code(s): M54.50 - Low back pain, unspecified Instructions Patient Instructions: Low Back Pain, DI for Low Back Pain Discharge ED Provider: Che Dickens [facility] General Stated complaint: PAIN IN BACK RT SIDE Mode of Arrival: Ambulatory Source of Information: Patient Limitations: No Limitations Time Seen by Provider: 02/18/23 15:23 Description of Symptoms (Recalled from Triage Doc. by RN): Pt stated that she has been having right lower back pain that radiated to the right side. HEENT Symptoms (Recalled from RN notes): No Resp Symptoms (Recalled from RN notes): No Skin Symptoms (Recalled from RN notes): No MS Symptoms (Recalled from RN notes): Yes Functional Status (Recalled from RN notes): n/a History of Present Illness Provider Complaint: Patient states that she has been having pain in her right lower back area States that area feels tight like she may have pulled a muscle States that pain is worse with movement and bending Denies known accident Denies loss of control of bowel or bladder Denies fever, nausea or urinary complaints state that feels like it does when she has low back pain in the past Related Data Previous Rx's Medication Instructions Recorded lacosamide 200 mg tablet 200 mg PO BID seizures #60 tabs 01/21/23 gabapentin 600 mg tablet 600 mg PO TID neuropathy #90 tabs 01/30/23 etodolac 200 mg capsule 200 mg PO Q8H PRN pain #20 caps 02/18/23 methocarbamol 500 mg tablet 500 mg PO TID #12 tabs 02/18/23 Allergies Allergy/AdvReac Type Severity Reaction Status Date / Time codeine [CODEINE] Allergy Unknown UNKNOWN Verified 02/18/23 15:22 guaifenesin [GUAIFENESIN] Allergy Unknown UNKNOWN Verified 02/18/23 15:22 morphine [MORPHINE] Allergy Unknown UNKNOWN Verified 02/18/23 15:22 Worker's Comp Is this a Worker's Comp case?: No [facility] Disclaimer: The information contained in this section may have been updated after the patient was seen, as this information can be updated by other users. Medical History Anxiety HLD (hyperlipidemia) HTN (hypertension), benign Seizures Severe obesity with body mass index (BMI) of 36.0 to 36.9 with serious comorbidity Tinnitus of right ear Surgical History (Reviewed 01/30/23 @ 14
[2023-02-18 15:37] LABS: Apearance,Urine Cloudy (Clear); Bilirubin,Urine Negative (Negative); Blood, Urine Negative (Negative); Color,Urine Dark Yellow (Yellow); Glucose,Urine (UA) Negative (Negative); Ketones,Urine Negative (Negative); Protein,Urine Negative (Negative)
[2023-02-18 15:38] LABS: UTC Leukocyte Esterase,Urine Negative (Negative); UTC Nitrate,Urine Negative (Negative); Urobilinogen,Urine 1 EU/dl (0.2)
[2023-02-18 16:20] VITALS: BP 158/94; PULSE 77; RESP 18; TEMP 36.6; O2SAT 99
== END 2023-02-18 16:20 | disposition home or self-care (01) ==
PROVIDERS: Emergency Provider Nurse Practitioner
DX: M54.50 Low back pain, unspecified (principal); I10 Essential (primary) hypertension; E78.5 Hyperlipidemia, unspecified; G40.909 Epilepsy, unspecified, not intractable, without status epilepticus; F41.9 Anxiety disorder, unspecified; E66.9 Obesity, unspecified
CPT/HCPCS: 81003; 96372; 99204; 99212; G0463

== ENCOUNTER 2023-07-25 13:00 | Outpatient (CLI) | payer BC, SELFPAY ==
--- NOTE | 2023-07-25 13:05 | XR_ITS ---
FINAL REPORT CLINICAL HISTORY: Bilat Knee Pain COMPARISON: 12/29/2021 FINDINGS: LEFT KNEE 3 views of the left knee were obtained. There is no acute fracture or dislocation. There is moderate narrowing of the medial compartment joint space. There is moderate osteophyte formation of the medial joint. There is mild to moderate osteophytes along the undersurface of the patellofemoral joint. There is an ossific density superior to the patella measuring 2.8 cm. Soft tissues are unremarkable. IMPRESSION: Moderate changes of osteoarthritis in the medial compartment patellofemoral joint space. Large intra-articular loose body. Reviewed, Interpreted and Dictated by Sanju Glaser MD Transcribed by Lottie Webb Authenticated and [facility]
--- NOTE | 2023-07-25 13:05 | XR_ITS ---
FINAL REPORT CLINICAL HISTORY: Bilat Knee pain COMPARISON: 12/15/2021 FINDINGS: 3 views of the right knee were obtained. There is no acute fracture or dislocation. There is moderate to advanced medial compartment joint space narrowing. There is prominent osteophyte formation in the medial joint margin. There is moderate osteophyte formation along the undersurface of the patella. There is a calcific or ossific density lateral to the distal femur measuring 1.9 cm, probably related to intra-articular loose body. There is no soft tissue abnormality. IMPRESSION: Moderately advanced medial compartment and patellofemoral osteoarthritis. Probable 1.9 cm intra-articular loose body. Reviewed, Interpreted and Dictated by Sanju Glaser MD Transcribed by Lottie Webb Authenticated and . [facility]
== END 2023-07-25 23:59 ==
LOC: RAD 13:01
PROVIDERS: PCP Nurse Practitioner Family; Visit Provider Nurse Practitioner Family
DX: M25.561 Pain in right knee (principal); M25.562 Pain in left knee
CPT/HCPCS: 73562

== ENCOUNTER 2023-08-27 09:33 | Outpatient (CLI) | payer BC, SELFPAY ==
[2023-08-27 09:56] LABS: Basophils # 0.1 K/mm3 (0-0.2); Basophils % 1.4 % (0.1-2.0); Eosinophils # 0.2 K/mm3 (0.0-0.4); Eosinophils % 4.1 % (0.1-12.0); Hemoglobin 14.3 g/dL (12.2-16.2); Lymphocytes # 1.6 K/mm3 (0.7-4.5); Lymphocytes % 36.1 % (10-50); Mean Corpuscular HGB Conc 31.1 g/dL (31.8-35.4); Mean Corpuscular Hemoglobin 29.8 pg (27.0-31.2); Mean Corpuscular Volume 95.8 fl (81-99); Mean Platelet Volume 8.1 fl (7.4-10.4); Monocytes # 0.2 K/mm3 (0.1-1.0); Monocytes % 5.5 % (1.7-9.3); Neutrophils # 2.3 K/mm3 (1.8-7.8); Neutrophils % 52.9 % (37.0-80.0); Platelet Count 185 K/mm3 (142-424); Red Cell Distribution Width 14.5 % (11.5-17.5); White Blood Count 4.3 K/mm3 (4.8-10.8)
[2023-08-27 10:24] LABS: Hemoglobin A1C 5.7 % (4.0-6.0)
[2023-08-27 11:00] LABS: Alanine Aminotransferase 20 U/L (12-78); Albumin Level 3.9 g/dl (3.5-5.0); Albumin/Globulin Ratio 1.5 (1.1-1.8); Alkaline Phosphatase 64 U/L (38-126); Anion Gap 6.6 mEq/L (5-15); Aspartate Amino Transferase 23 U/L (14-36); Bilirubin,Total 0.6 mg/dl (0.2-1.3); Blood Urea Nitrogen 13 mg/dl (7-17); Calcium 9.3 mg/dl (8.4-10.2); Carbon Dioxide 30 mmol/L (22.0-30.0); Chloride 109 mmol/L (98-107); Estimated Glomerular Filt Rate 65 ml/min (>60); GFR (African American) 79 ML/MIN (>60); Globulin 2.6 g/dL (1.3-3.2); Glucose 80 mg/dl (74-100); Potassium 3.6 mmoL/L (3.5-5.1); Sodium 142 mmol/L (136-145); Total Protein,Serum 6.5 g/dl (6.3-8.2)
[2023-08-27 11:32] LABS: Thyroid Stimulating Hormone 1.98 uIU/mL (0.465-4.68)
== END 2023-08-27 23:59 | disposition home or self-care (01) ==
PROVIDERS: PCP Nurse Practitioner Family; Visit Provider Specialist
DX: R56.9 Unspecified convulsions (principal); E66.01 Morbid (severe) obesity due to excess calories; Z68.41 Body mass index [BMI] 40.0-44.9, adult; Z79.899 Other long term (current) drug therapy
CPT/HCPCS: 36415; 80053; 83036; 84443; 85025

== ENCOUNTER 2023-09-02 08:01 | Outpatient (CLI) | payer BC, SELFPAY ==
--- NOTE | 2023-09-02 08:01 | MR_ITS ---
FINAL REPORT CLINICAL HISTORY: Lt medial Knee Pain COMPARISON: None FINDINGS: Multiplanar MR imaging of the left knee was performed without contrast. There is diffuse medial meniscal degeneration with a tear of the posterior horn. There is lateral meniscus degeneration with a tear of the anterior horn. The anterior cruciate ligament is not seen and likely chronically torn. The posterior cruciate ligament is intact. The medial collateral ligament and lateral ligamentous complex are intact. The patellar and quadriceps tendons are intact. There is no evidence of fracture. There is severe degenerative change throughout. There is moderate and severe chondromalacia, worst involving the medial compartment. There are multiple small osteochondral lesions of the medial femoral condyle and medial tibial plateau. A large joint effusion is seen. The musculature is intact. No soft tissue mass or cyst is identified. IMPRESSION: Medial meniscal posterior horn tear and lateral meniscal anterior horn tear. Chronic tear ACL. Severe degenerative change and moderate to severe chondromalacia. Multiple small osteochondral lesions. Large joint effusion. Reviewed, Interpreted and Dictated by Christiano Lynn III, MD Transcribed by Lottie Webb Authenticated and [facility]
== END 2023-09-02 23:59 | disposition home or self-care (01) ==
LOC: RAD 08:01
PROVIDERS: PCP Nurse Practitioner Family; Visit Provider Orthopaedic Surgery
DX: M17.12 Unilateral primary osteoarthritis, left knee (principal)
CPT/HCPCS: 73721

== ENCOUNTER 2023-09-25 09:53 | Outpatient (CLI) | payer BC, SELFPAY ==
--- NOTE | 2023-09-25 09:56 | XR_ITS ---
FINAL REPORT CLINICAL HISTORY: Lt Knee Pain COMPARISON: None FINDINGS: LEFT KNEE 3 views of the left knee were obtained. There is no acute fracture or dislocation. There is moderately advanced medial compartment joint space narrowing. There is moderate osteophyte formation at the medial lateral joint margins. A calcific or ossific density seen superior to the patella measuring 2.5 cm is probably an intra-articular loose body. There are moderate changes of osteoarthritis of the patellofemoral joint.. Soft tissues are unremarkable. IMPRESSION: Moderate changes of osteoarthritis without acute bony abnormality. Reviewed, Interpreted and Dictated by Sanju Glaser MD Transcribed by Lottie Webb Authenticated and [facility]
== END 2023-09-25 23:59 | disposition home or self-care (01) ==
LOC: RAD 09:54
PROVIDERS: PCP Nurse Practitioner Family; Visit Provider Orthopaedic Surgery
DX: M25.562 Pain in left knee (principal); S83.272D Complex tear of lateral meniscus, current injury, left knee, subsequent encounter
CPT/HCPCS: 73562

== ENCOUNTER 2023-10-03 09:02 | Emergency (ER) | payer BC, SELFPAY ==
[2023-10-03 09:15] VITALS: BP 131/86; PULSE 77; RESP 20; TEMP 36.6; O2SAT 97; BMI 37.9
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
[2023-10-03 10:14] VITALS: BP 131/86; PULSE 77; RESP 20; TEMP 36.6; O2SAT 97
--- NOTE | 2023-10-03 10:16 | PC.NURSE ---
INCENTIVE SPIROMETER GIVEN TO PATIENT AND INSTRUCTED ON USE
== END 2023-10-03 10:17 | disposition home or self-care (01) ==
PROVIDERS: Emergency Provider Nurse Practitioner Family; PCP Nurse Practitioner Family
DX: S29.011A Strain of muscle and tendon of front wall of thorax, initial encounter (principal); S29.012A Strain of muscle and tendon of back wall of thorax, initial encounter; V49.60XA Unspecified car occupant injured in collision with unspecified motor vehicles in traffic accident, initial encounter
CPT/HCPCS: 99212; 99214; G0463

== ENCOUNTER 2024-01-07 11:34 | Outpatient (CLI) | payer BC, SELFPAY ==
[2024-01-07 11:45] LABS: Microscopic, Urine URINE MICROSCOPIC (MICROSCOPIC)
[2024-01-07 12:11] LABS: Appearance,Urine CLEAR (Clear); Blood, Urine Negative (Negative); Color,Urine YELLOW (Yellow); Glucose,Urine (UA) Negative (Negative); Ketones,Urine Negative (Negative); Leukocyte Esterase,Urine TRACE (Negative); Nitrate,Urine Negative (Negative); Protein,Urine Negative (Negative)
[2024-01-07 12:17] LABS: Bacteria,Urine Trace /lpf; Bilirubin,Urine 1+ (Negative); WBC,Urine Occasional #/hpf (0-3)
[2024-01-07 12:18] LABS: Creatinine,Urine Random 268 mg/dL (Not Estab.); Total Protein,Urine Random < 5.0 mg/dL (0.0-12.0)
[2024-01-07 12:21] LABS: Basophils # 0.1 K/mm3 (0-0.2); Basophils % 0.9 % (0.1-2.0); Eosinophils # 0.2 K/mm3 (0.0-0.4); Eosinophils % 4.1 % (0.1-12.0); Hematocrit 46.7 % (37.0-47.0); Lymphocytes # 2.3 K/mm3 (0.7-4.5); Lymphocytes % 38.7 % (10-50); Mean Corpuscular HGB Conc 32.1 g/dL (31.8-35.4); Mean Corpuscular Hemoglobin 29.4 pg (27.0-31.2); Mean Corpuscular Volume 91.7 fl (81-99); Mean Platelet Volume 8.5 fl (7.4-10.4); Monocytes # 0.3 K/mm3 (0.1-1.0); Monocytes % 4.7 % (1.7-9.3); Neutrophils % 51.6 % (37.0-80.0); Platelet Count 273 K/mm3 (142-424); Red Cell Distribution Width 14.2 % (11.5-17.5); White Blood Count 5.8 K/mm3 (4.8-10.8)
[2024-01-07 12:29] LABS: Anion Gap 7.5 mEq/L (5-15); Blood Urea Nitrogen 10 mg/dl (7-17); Calcium 9.3 mg/dl (8.4-10.2); Carbon Dioxide 31 mmol/L (22.0-30.0); Chloride 103 mmol/L (98-107); Estimated Glomerular Filt Rate 65 ml/min (>60); GFR (African American) 79 ML/MIN (>60); Glucose 100 mg/dl (74-100); Phosphorous 4.2 mg/dl (2.5-4.5); Potassium 3.5 mmoL/L (3.5-5.1); Sodium 138 mmol/L (136-145)
== END 2024-01-07 23:59 | disposition home or self-care (01) ==
LOC: LAB 11:35
PROVIDERS: PCP Nurse Practitioner Family; Visit Provider Nurse Practitioner
DX: N18.2 Chronic kidney disease, stage 2 (mild) (principal)
CPT/HCPCS: 36415; 80069; 81001; 82043; 82570; 84156; 85025

== ENCOUNTER 2024-01-10 09:27 | Outpatient (POV) | payer BC, SELFPAY | END 2024-01-10 23:59 | disposition home or self-care (01) | LOC: SC 09:28 | PROVIDERS: Visit Provider Nurse Practitioner | DX: Z00.00 Encounter for general adult medical examination without abnormal findings (principal) ==

== ENCOUNTER 2024-02-26 09:01 | Outpatient (CLI) | payer BC, SELFPAY ==
[2024-02-26 09:43] LABS: Basophils # 0.1 K/mm3 (0-0.2); Basophils % 0.9 % (0.1-2.0); Eosinophils # 0.2 K/mm3 (0.0-0.4); Eosinophils % 3.8 % (0.1-12.0); Hemoglobin 14.7 g/dL (12.2-16.2); Lymphocytes # 1.8 K/mm3 (0.7-4.5); Lymphocytes % 32.1 % (10-50); Mean Corpuscular HGB Conc 32.7 g/dL (31.8-35.4); Mean Corpuscular Hemoglobin 29.9 pg (27.0-31.2); Mean Corpuscular Volume 91.3 fl (81-99); Mean Platelet Volume 8.1 fl (7.4-10.4); Monocytes # 0.3 K/mm3 (0.1-1.0); Monocytes % 5.5 % (1.7-9.3); Neutrophils # 3.3 K/mm3 (1.8-7.8); Neutrophils % 57.7 % (37.0-80.0); Platelet Count 227 K/mm3 (142-424); Red Blood Count 4.93 M/mm3 (4.20-5.40); Red Cell Distribution Width 14.1 % (11.5-17.5); White Blood Count 5.7 K/mm3 (4.8-10.8)
[2024-02-26 10:55] LABS: Albumin Level 3.9 g/dl (3.5-5.0); Chloride 103 mmol/L (98-107); Potassium 3.3 mmoL/L (3.5-5.1); Sodium 140 mmol/L (136-145)
[2024-02-26 10:58] LABS: Alanine Aminotransferase 18 U/L (12-78); Albumin/Globulin Ratio 1.5 (1.1-1.8); Alkaline Phosphatase 72 U/L (38-126); Anion Gap 10.3 mEq/L (5-15); Aspartate Amino Transferase 20 U/L (14-36); Bilirubin,Total 0.6 mg/dl (0.2-1.3); Blood Urea Nitrogen 11 mg/dl (7-17); Carbon Dioxide 30 mmol/L (22.0-30.0); Estimated Glomerular Filt Rate 74 ml/min (>60); GFR (African American) 90 ML/MIN (>60); Globulin 2.6 g/dL (1.3-3.2); Total Protein,Serum 6.5 g/dl (6.3-8.2)
[2024-02-26 10:59] LABS: Glucose 113 mg/dl (74-100)
[2024-02-26 11:21] LABS: Hemoglobin A1C 5.7 % (4.0-6.0)
[2024-02-26 11:25] LABS: Thyroid Stimulating Hormone 2.61 uIU/mL (0.465-4.68)
[2024-03-04 08:10] LABS: Miscellaneous Test SCANNED IMAGE
== END 2024-02-26 23:59 | disposition home or self-care (01) ==
LOC: LAB 09:02
PROVIDERS: PCP Nurse Practitioner Family; Visit Provider Specialist
DX: E66.01 Morbid (severe) obesity due to excess calories (principal); R56.9 Unspecified convulsions; Z68.37 Body mass index [BMI] 37.0-37.9, adult
CPT/HCPCS: 80050; 80053; 83036; 84443; 85025

== ENCOUNTER 2024-03-24 09:57 | Outpatient (CLI) | payer BC, SELFPAY ==
[2024-03-24 18:38] LABS: Chol/HDL Ratio 3.7 (1-3.5); Cholesterol 216 mg/dl (140-200); HDL Cholesterol 59 mg/dl (40-60); Triglycerides 113 mg/dl (30-150); VLDL Cholesterol 23 mg/dL (0-40)
[2024-03-24 18:49] LABS: Direct LDL Cholesterol 142.14 mg/dL (100-129)
== END 2024-03-24 23:59 | disposition home or self-care (01) ==
LOC: LAB.DROPOF 03-25 07:15
PROVIDERS: PCP Nurse Practitioner Family; Visit Provider Nurse Practitioner Family
DX: E66.9 Obesity, unspecified (principal); Z68.38 Body mass index [BMI] 38.0-38.9, adult
CPT/HCPCS: 80061

== ENCOUNTER 2024-08-12 10:00 | Outpatient (CLI) | payer BC, SELFPAY ==
[2024-08-12 18:48] LABS: Hemoglobin A1C 5.7 % (4.0-6.0)
[2024-08-12 19:18] LABS: Alanine Aminotransferase 24 U/L (12-78); Albumin/Globulin Ratio 1.2 (1.1-1.8); Alkaline Phosphatase 72 U/L (38-126); Aspartate Amino Transferase 25 U/L (14-36); Bilirubin,Total 0.8 mg/dl (0.2-1.3); Blood Urea Nitrogen 12 mg/dl (7-17); Calcium 9.1 mg/dl (8.4-10.2); Carbon Dioxide 27 mmol/L (22.0-30.0); Chloride 102 mmol/L (98-107); Chol/HDL Ratio 3.3 (1-3.5); Cholesterol 170 mg/dl (140-200); Estimated Glomerular Filt Rate 87 ml/min (>60); GFR (African American) 105 ML/MIN (>60); Globulin 3.3 g/dL (1.3-3.2); Glucose 113 mg/dl (74-100); HDL Cholesterol 51 mg/dl (40-60); Sodium 139 mmol/L (136-145); Total Protein,Serum 7.3 g/dl (6.3-8.2); Triglycerides 109 mg/dl (30-150); VLDL Cholesterol 22 mg/dL (0-40)
[2024-08-12 19:29] LABS: Direct LDL Cholesterol 89.56 mg/dL (100-129)
[2024-08-12 20:11] LABS: Vitamin B12 399 pg/mL (239-931)
== END 2024-08-12 23:59 | disposition home or self-care (01) ==
LOC: LAB.DROPOF 08-13 09:39
PROVIDERS: PCP Family Medicine; Visit Provider Family Medicine
DX: I10 Essential (primary) hypertension (principal); G89.29 Other chronic pain; M54.16 Radiculopathy, lumbar region; M54.50 Low back pain, unspecified
CPT/HCPCS: 80053; 80061; 82607; 83036

== ENCOUNTER 2024-08-18 11:02 | Outpatient (CLI) | payer BC, SELFPAY ==
--- NOTE | 2024-08-18 11:16 | XR_ITS ---
FINAL REPORT CLINICAL HISTORY: Back pain. Fell 3 months ago. COMPARISON: None FINDINGS: 3 views of the lumbar spine were obtained. There is partial sacralization of L5. There is no evidence of fracture. Minimal spondylolisthesis is noted of L3 on L4. The vertebrae are normal in height. There is moderate anterior osteophyte formation T12-L1 through L3-4. Advanced facet sclerosis is noted in the mid lumbar spine. No paraspinous soft tissue abnormalities identified. IMPRESSION: Minimal spondylolisthesis L3 on L4. Facet sclerosis lower lumbar spine. Partial sacralization of L5. Reviewed, Interpreted and Dictated by Sanju Glaser MD Transcribed by Lottie Webb Authenticated and [facility]
[2024-08-18 11:48] LABS: Anion Gap 10.3 mEq/L (5-15); Blood Urea Nitrogen 14 mg/dl (7-17); Calcium 9.3 mg/dl (8.4-10.2); Carbon Dioxide 28 mmol/L (22.0-30.0); Chloride 106 mmol/L (98-107); Estimated Glomerular Filt Rate 74 ml/min (>60); GFR (African American) 90 ML/MIN (>60); Glucose 138 mg/dl (74-100); Potassium 3.3 mmoL/L (3.5-5.1); Sodium 141 mmol/L (136-145)
== END 2024-08-18 23:59 | disposition home or self-care (01) ==
LOC: LAB 11:03
PROVIDERS: PCP Nurse Practitioner Family; Visit Provider Nurse Practitioner Family
DX: E87.6 Hypokalemia (principal); M54.16 Radiculopathy, lumbar region; M54.42 Lumbago with sciatica, left side; M54.41 Lumbago with sciatica, right side; G89.29 Other chronic pain
CPT/HCPCS: 36415; 72100; 80048

== ENCOUNTER 2024-08-20 13:21 | Outpatient (CLI) | payer BC, SELFPAY ==
--- NOTE | 2024-08-20 13:24 | XR_ITS ---
FINAL REPORT CLINICAL HISTORY: Knee pain COMPARISON: 09/25/2023 FINDINGS: LEFT KNEE Three views demonstrate no acute fracture or dislocation. There is moderately advanced medial compartment joint space narrowing. There is moderate osteophyte formation at the medial and lateral joint margins. There are prominent osteophytes along the undersurface of the patella. There are 2 ossific densities superior to the patella. These densities measures up to 3.1 cm and are probably due to intra-articular loose bodies. IMPRESSION: Degenerative changes without acute bony abnormality. Reviewed, Interpreted and Dictated by Sanju Glaser MD Transcribed by Ericka Liu Authenticated and [facility]
--- NOTE | 2024-08-20 13:24 | XR_ITS ---
FINAL REPORT CLINICAL HISTORY: Knee pain COMPARISON: 07/25/2023 FINDINGS: RIGHT KNEE Three views demonstrate no acute fracture or dislocation. There is advanced medial compartment joint space narrowing. Subchondral sclerosis is noted. There is osteophyte formation at the medial joint margin. There is a calcific density lateral to the distal fibula measuring 1.9 cm which may be due to old trauma. IMPRESSION: Degenerative changes without acute bony abnormality. Reviewed, Interpreted and Dictated by Sanju Glaser MD Transcribed by Ericka Liu Authenticated and [facility]
== END 2024-08-20 23:59 | disposition home or self-care (01) ==
LOC: RAD 13:22
PROVIDERS: PCP Nurse Practitioner Family; Visit Provider Orthopaedic Surgery
DX: M17.0 Bilateral primary osteoarthritis of knee (principal)
CPT/HCPCS: 73562

== ENCOUNTER 2024-08-25 11:00 | Outpatient (CLI) | payer BC, SELFPAY ==
--- NOTE | 2024-08-25 11:00 | MM_ITS ---
PROCEDURE INFORMATION: Exam: MG Bilateral Screening 3D Mammography Exam date and time: 08/25/2024 11:12 AM Age: 54 years old Clinical indication: Screening examination TECHNIQUE: Imaging protocol: Bilateral Screening tomosynthesis and 2D mammography including computer-aided detection (CAD) when performed. COMPARISON: 1. MG MM DIG SCREENING MAMM BI W/CAD 10/09/2022 9:36 AM 2. MG MM DIG SCREENING MAMM BI W/CAD 09/22/2021 10:35 AM FINDINGS: MAMMOGRAPHY: Breast composition: The breasts are almost entirely fatty. Mass: None. Architectural distortion: None. Calcifications: No suspicious calcifications. Asymmetric density: None. Skin thickening: None. Axillary adenopathy: None. IMPRESSION: No mammographic evidence of malignancy. Annual screening is recommended unless otherwise clinically indicated. ASSESSMENT: BI-RADS Category 1: Negative.
== END 2024-08-25 23:59 | disposition home or self-care (01) ==
LOC: RAD 11:00
PROVIDERS: PCP Family Medicine; Visit Provider Family Medicine
DX: Z12.31 Encounter for screening mammogram for malignant neoplasm of breast (principal)
CPT/HCPCS: 77063; 77067

== ENCOUNTER 2024-09-04 13:00 | Outpatient (POV) | payer BC, SELFPAY ==
--- OUTSIDE RECORDS SUMMARY | 2024-09-04 13:03 | XMS_ITS | Continuity of Care Document ---
Author Organization [facility] - [facility] Jon Chandra [facility] MOB Address [address] [place] [address] Assessment Encounter Date Assessment Date Assessment LastModified by Organization Details LastModified Time 09/02/2024 09/02/2024 -MRI brain eval epilepsy -EEG -Vimpat 150 mg BID (ANN Reviewed) -labs: CBC, CMP, Vimpat level -f/u as scheduled [email or web address] Not available 09/02/2024 12:54:38 Plan of Treatment Reminders Order Date Submit Date Provider Last Modified By Organization Details Last Modified Time Details Appointments OV EST 15 2024 02:15P Maddie Lai M.D Not available Not available Not available Lab lacosami de, serum 2024 025 [facility] (Lab Registration) , [address] [place] [address] [place], [id number], 09/02/2024 12:55:44 CMP, serum or plasma 2024 025 [facility] (Lab Registration) , [address] [place] [address] [place], [id number], 09/02/2024 19:53:24 CBC w/ auto diff 2024 025 [facility] (Lab Registration) , [address] [place] [address] [place], [id number], 09/02/2024 14:39:31 Referral None recorded . Procedures electroe ncephalo gram (EEG); includin g recordin g awake and drowsy (PROC) 2024 025 [facility] Scheduling, [address] [place], [id number], 09/02/2024 13:09:50 Surgeries None recorded . Imaging MRI, brain, w/wo contrast 2024 025 [id number] [facility] (Central Scheduling), [address] [place], [id number], 09/04/2024 10:17:51 Medication Orders lacosami de 150 mg tablet 2024 025 [facility] 591, [address], [address], 09/02/2024 12:54:22 Patient TargetsNo targets recorded. Patient InstructionsNo instructions recorded. Reason for Referral None Reported. Medical Equipment None Reported. Medications Name Sig Start Date Stop Date Status Note LastModified by Organization Details LastModified Time celecoxib 200 mg capsule TAKE 1 CAPSULE BY MOUTH ONCE DAILY 09/02 completed Not Available Not Available Not Available cyclobenzap rine 10 mg tablet TAKE 1 TABLET BY MOUTH THREE TIMES DAILY NEEDED FOR MUSCLE SPASM 09/02 completed Not Available Not Available Not Available prednisone 20 mg tablet TAKE 1 TABLET BY MOUTH TWICE DAILY FOR 5 DAYS 09/02 completed Not Available Not Available Not Available simvastatin 10 mg tablet TAKE 1 TABLET BY MOUTH AT BEDTIME NIGHTLY active Not Available Not Available No t Available hydrochloro thiazide 25 mg tablet TAKE 1 TABLET BY MOUTH ONCE DAILY active Not Available Not Available No t Available ibuprofen 600 mg tablet TAKE 1 TABLET BY MOUTH EVERY 6 HOURS NEEDED FOR MILD PAIN 09/02 completed Not Available Not Available Not Available naproxen 500 mg tablet TAKE 1 TABLET BY MOUTH TWICE DAILY 09/02 completed Not Available Not Available Not Available topiramate 50 mg tablet TAKE 1 TABLET BY MOUTH TWICE DAILY FOR SEIZURES 09/02 completed Not Available Not Available Not Available lacosamide 200 mg tablet TAKE 1 TABLET BY MOUTH TWICE DAILY FOR SEIZURES active Not Available Not Available No t Available lacosamide 150 mg tablet Take 1 tablet twice a day by oral route. 2024 active Not Available Not Available Not Avai lable Vitals Date Recorded Body height Body mass index (BMI) Body weight Body temperature Oxygen saturation Oxygen saturation in Arterial blood by Pulse oximetry Heart rate Systolic blood pressure Diastolic blood pressure Provider Name and Address Organization Details Last Updated DateTime 167.64 cm 38.7 kg/m2 047244. 17 g 97 [degF] 97 % 97 % 74 /min 130 mm[Hg] 80 mm[Hg] Kelsie Toney MD - [facility] - [place] [facility] [place] 12:34:23 Social History None recorded. Functional Status None recorded. Mental Status None recorded. Family History Relationship Description Onset Age of this Age Resolved Age Notes LastModified by Organization Details LastModified Time Father No current problems or disability [email or web address] Not available 08/27 11:46:39 Mother No current problems or disability [email or web address] Not available 08/27 11:46:39 Medical History Condition Response Anxiety/Depression Y Hypertension Y Gynecological HistoryNo gynecological history recorded. Obstetrics History GPAL:G 0 P 0 0 0 0 Past Encounters Encounter ID Performer Location Encounter Start Date Encounter Closed Date Diagnosis/Indication Diagnosis SNOMED-CT Code Diagnosis ICD10 Code Diagnosis Note [id number] Prieto Lai M.D [facility] Neurology [address] [place] [phone] 09/02/2024 12:21:08 09/02/2024 12:54:53 Focal onset impaired awareness epileptic seizure 959393426 G40.209 Health Concerns Section Related Observation LastModified by Organization Detai ls LastModified Time None Recorded Concern Status LastModified by Organization Details LastModified Time None Recorded Payers Encounter Date Sequence Insurance Name Policy Number Policy Patel Covered Member ID Patel Member ID Guarantor Name 09/02/2024 1 [employer]-[place]: JOHN PAUL [place]AC[place] OF [place]O) [id number] 1 Marcia Ohara [id number] Notes Date Note Type Note Provider Name and Address Organization Details Recorded Time 09/02/2024 text/html Ms. Ohara is a 54 y/o F who is referred to clinic for evaluation. She has hx of complex partial seizures for the past 9 years. She gets no aura with these. Has staring spells and automatisms with arm movements and lip smacking lasting about a minute or less. Had video EEG monitoring in 2022 showing bilateral independent frontal and temporal sharp waves and slowing.She has been treated with Depakote, Keppra, Gabapentin, and Vimpat. She is currently taking Vimpat 150 mg BID which has helped. Prieto Lai M.D [address] [place] [address], [address], [place], [address], [place] - [facility] 09/02/2024 12:54:53 OBGyn Episode No OBEpisode recorded.
[2024-09-04 13:12] VITALS: BP 153/87; PULSE 76; RESP 16; O2SAT 96; BMI 37.9
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
== END 2024-09-04 23:59 | disposition home or self-care (01) ==
LOC: SC.PAIN 13:01
PROVIDERS: PCP Nurse Practitioner Family; Visit Provider Nurse Practitioner Family
DX: M47.816 Spondylosis without myelopathy or radiculopathy, lumbar region (principal); M25.561 Pain in right knee; M25.562 Pain in left knee; M17.0 Bilateral primary osteoarthritis of knee; S83.512A Sprain of anterior cruciate ligament of left knee, initial encounter; S83.272D Complex tear of lateral meniscus, current injury, left knee, subsequent encounter; M70.61 Trochanteric bursitis, right hip; M70.62 Trochanteric bursitis, left hip; Z73.89 Other problems related to life management difficulty
CPT/HCPCS: 99202; 99212; G0463

== ENCOUNTER 2024-10-06 09:28 | Day surgery (SDC) | payer BC, SELFPAY ==
[2024-10-06 10:02] VITALS: BP 139/73; PULSE 66; RESP 16; TEMP 36.7; O2SAT 97; BMI 38.7
[2024-10-06] MEDS: BUPIVACAINE 0.25% 10ML INJ 25 MG IJ (10:20)
[2024-10-06 10:21] VITALS: BP 150/75; PULSE 69; RESP 18; O2SAT 96
[2024-10-06] MEDS: DEXAMETHASONE 10MG/ML 1ML VIAL 10 MG (10:21)
[2024-10-06] MEDS: LIDOCAINE 1% 5ML PF VIAL 5 ML (10:21)
[2024-10-06 10:22] VITALS: BP 150/75; PULSE 70; RESP 18; O2SAT 97
[2024-10-06 10:29] VITALS: BP 151/78; PULSE 68; RESP 16; O2SAT 97
--- NOTE | 2024-10-06 10:30 | EXP.PAIN.PRO ---
Procedure Date: 10/06/24 Time: 10:10 Anesthesiologist:: Joseph Arias CRNA Complications:: None Pre-procedure Diagnosis:: DJD bilateral knee. Chronic bilateral knee pain. Post-procedure Diagnosis:: Same. Indications for Procedure:: Patient is a pleasant 54-year-old female who comes our clinic today for bilateral infrapatellar nerve blocks. Patient has had multiple intra-articular injections in the past with another provider. She describes bilateral knee pain as constant, dull, aching, sharp, stabbing. Climbing stairs is very difficult due to the bilateral knee pain. She rates her pain 7/10. Procedure Details:: Details of procedure explained to the patient. The patient taken procedure and placed in the sitting position. The area over the bilateral knees was cleaned using chlorhexidine as a cleansing solution. Using a 22-gauge inch and half needle the left infrapatellar branch of the saphenous nerve was accessed with ease at the superior anterior tibia. After negative aspiration 3 cc of 1% lidocaine +3 cc 0.25% Marcaine and 5 mg of dexamethasone was injected. The same procedure was carried out over the right infrapatellar nerve. Patient tolerated procedure without difficulty. No complications. Plan and Disposition:: Patient was discharged without incident.
== END 2024-10-06 10:29 | disposition home or self-care (01) ==
PROVIDERS: PCP Nurse Practitioner Family; Visit Provider Nurse Anesthetist, Certified Registered
DX: G89.29 Other chronic pain (principal); M25.562 Pain in left knee; M25.561 Pain in right knee; F41.9 Anxiety disorder, unspecified; E78.5 Hyperlipidemia, unspecified; G40.909 Epilepsy, unspecified, not intractable, without status epilepticus
CPT/HCPCS: 64450; J0665; J1100; J2003

== ENCOUNTER 2024-10-21 10:23 | Outpatient (POV) | payer BC, SELFPAY ==
--- OUTSIDE RECORDS SUMMARY | 2024-10-01 23:40 | XMS_ITS | Continuity of Care Document ---
Author Organization [facility] Phone Care Team Providers Care Energy Efficiency Specialist Name Role Phone VAISHALI ALICEA Unavailable STAR GUTIÉRREZ JR Primary Care VAISHALI ALICEA Primary Attending VAISHALI ALICEA Admitting [phone] RESULTS Patient: MATI Perkins Date of : 1970 7 LABORATORY RESULTS Information is not available LABORATORY NARRATIVE RESULTS Information is not available RADIOLOGY RESULTS ORDER 100: MRI BRAIN WOW - R OUTINE (LOINC: [id number]) ORDER DATE: September 29, 2024 4:36:00 PM [place] PERFORMING LAB: [address] [id number] Final Result Date: September 29 6:53:06 PM [place] (TECH: KARY BARRERA MD) [address] [address] (Phone) IMAGING REPORT Name: OLIVIA THORNE : 1970 Age: 54 Years Patient Type: Outpatient Sex: F Exam Description: MRI BRAIN WOW - ROUTINE Exam Reason: [id number] local rel symptc epi with complex part seizures Order Date/Time: 09/29/2024 02:25:18 PM Dictated By: Gonzalo Steinberg MD Ordering Physician: VAISHALI ALICEA Attending Physician: VAISHALI ALICEA EXAM DESCRIPTION: MR BRAIN WITHOUT THEN WITH IV CONTRAST CLINICAL HISTORY: [id number] local rel symptc epi with complex part seizures TECHNIQUE: Multiple MRI sequences of the brain were obtained in the axial, sagittal, and coronal orientations without and with intravenous contrast. IV Contrast: 20 cc of MultiHance COMPARISON: None. FINDINGS: There is normal cortical sulcal pattern. No extra-axial fluid collection seen. There is no ventriculomegaly. The skull base and craniocervical junction as well as the sella and suprasellar structures are grossly unremarkable. Flow-void is seen within the major intracranial vessels consistent with their patency. A cavum vergae is noted, a normal anatomic variant. No abnormal parenchymal signal seen. No restricted diffusion seen to suggest acute ischemia. Postcontrast PAGE 1 OF 2 Name: OLIVIA THORNE : 1970 Age: 54 Years Patient Type: Outpatient Sex: F Exam Description: MRI BRAIN WOW - ROUTINE Exam Reason: [id number] local rel symptc epi with complex part seizures Order Date/Time: 09/29/2024 02:25:18 PM images demonstrate no suspect enhancement or enhancing intracranial mass. Visualized orbits paranasal sinuses and mastoid complexes are grossly unremarkable. IMPRESSION: No acute large vessel infarct, acute intracranial hemorrhage, or intracranial mass lesion. Electronically signed by: Gonzalo Steinberg MD 09/29/2024 02:53 PM EDT Principal Pilot Can Router Name: Gonzalo Steinberg Provider ID: [id number] PAGE 2 OF 2 PATHOLOGY NARRATIVE RESULTS Information is not available MICROBIOLOGY RESULTS No Micro Labs/Results Exist for Patient BLOOD ADMIN RESULTS Information is not available MEDICATIONS HOME MEDICATIONS Status RXNORM NDC Medication Dose Route Frequency Dates Comments Reported By Updated By Drug Treatment Unknown DISCHARGE MEDICATIONS Status RXNORM NDC Medication Dose Route Frequency Dates Comments Physician Updated By No Discharge Medication Info rmation Available INPATIENT MEDICATIONS Status RXNORM NDC Medication Dose Route Frequency Rat e Quantity Dates Comments Physician Updated By No Inpatient Medication Info rmation Available SOCIAL HISTORY SOCIAL HISTORY SNOMED-CT Social History Element Description Effective Dates Offered Cessation Comment UpdatedBy [id number] Smoking Status Unknown If Ever Smoked SOCIAL HISTORY - Gender Sex: Female SOCIAL HISTORY - Status : status i nformation is not available Intention in Next Year: intention information is not available SOCIAL HISTORY - Sexual Behavior Sexual Orientation Gender Identity SNOMED-CT Description SNO MED -CT Description Activity Level No of Partners Partner Type UpdatedBy Information is not available HEALTH CONCERNS Problems Concern Status Health Concern problem infor mation not available. Smoking Status Status Years Used Consumed packs p er day Health Concern smoking histo ry information not available. Family History Concern Status Health Concern family histor y information not available. ENCOUNTERS ENCOUNTER INFORMATION Reason for Visit MRI BRAIN W&WO EEG Admission September 29, 2024 4:09:00 PM [place] [id number] Discharge September 30, 2024 4:09:00 AM [facility] DISC HARGED TO HOME OR SELF CARE ENCOUNTER DIAGNOSES Notes information is not christie ilable. Code System Diagnosis Onset Date Diagnosis information is not available. ABSTRACT DIAGNOSES Code System Diagnosis Updated By Z01.818 ICD10 ENCOUNTER FOR OT HER PREPROCEDURAL EXAMINATION [id number] on October 02, 2024 3:39:43 AM [facility] G40.209 ICD10 LOCALIZATION-REL ATED (FOCAL) (PARTIAL) SYMPTOMATIC EPILEPSY AND EPILEPTIC SYNDROMES WITH COMPLEX PARTIAL SEIZURES, NOT INTRACTABLE, WITHOUT STATUS EPILEPTICUS [id number] on October 02, 2024 3:39:43 AM [facility] Z01.818 ICD10 ENCOUNTER FOR OT HER PREPROCEDURAL EXAMINATION [id number] on October 02, 2024 3:39:43 AM [facility] G40.209 ICD10 LOCALIZATION-REL ATED (FOCAL) (PARTIAL) SYMPTOMATIC EPILEPSY AND EPILEPTIC SYNDROMES WITH COMPLEX PARTIAL SEIZURES, NOT INTRACTABLE, WITHOUT STATUS EPILEPTICUS [id number] on October 02, 2024 3:39:43 AM UTC CARE TEAM Care Energy Efficiency Specialist Role VAISHALI ALICEA Referring STAR GUTIÉRREZ Primary Care VAISHALI ALICEA Primary Attending VAISHALI ALICEA Admitting CARE TEAM CARE business development sales executive Role on Team Status Start Date End Date Update d By MARLA Mao JR CHILD CARE GIVER PCP normal September 29, 2024 8:11:22 PM UTC September 30, 2024 4:09:00 AM UTC [id number] on September 29, 2024 8:11:[address] IGLESIAS NAME IN PCP normal September 29, 2024 4:28:24 PM UTC September 29, 2024 8:11:22 PM UTC [id number] on September 29, 2024 8:11:22 PM UTC DECLINED PCP PCP normal September 09, 2024 8:43:24 PM UTC September 29, 2024 4:28:24 PM UTC [id number] on September 29, 2024 8:11:22 PM UTC NIXON Kim MD Referring normal September 09, 2024 8:43:24 PM UTC September 30, 2024 4:09:00 AM UTC [id number] on September 29, 2024 8:11:22 PM UTC NIXON Kim MD Attending normal September 09, 2024 8:43:24 PM UTC September 30, 2024 4:09:00 AM UTC [id number] on September 29, 2024 8:11:22 PM UTC NIXON Kim MD Admitting normal September 09, 2024 8:43:24 PM UTC September 30, 2024 4:09:00 AM UTC [id number] on September 29, 2024 8:11:22 PM UTC
--- OUTSIDE RECORDS SUMMARY | 2024-10-21 10:28 | XMS_ITS | Data Portability ---
Author Organization [place] - [facility] ADMIN Address [address] [place] [id number] Assessment Encounter Date Assessment Date Assessment LastModified by Organization Details LastModified Time 09/02/2024 09/02/2024 -MRI brain eval epilepsy -EEG -Vimpat 150 mg BID (ANN Reviewed) -labs: CBC, CMP, Vimpat level -f/u [facility] 09/02/2024 12:54:38 Plan of Treatment Reminders Order Date Submit Date Provider Last Modified By Organization Details Last Modified Time Details Appointments OV EST 15 2024 02:15P Maddie Lai M.D Not available Not available Not available Lab lacosami de, serum 2024 025 [facility] (Lab Registration) , [address] [place] [address] [place], [address], 09/09/2024 07:53:11 CMP, serum or plasma 2024 025 [facility] (Lab Registration) , [address] [place] [address] [place], [address], 09/02/2024 19:53:24 CBC w/ auto diff 2024 025 [facility] (Lab Registration) , [address] [place] [address] [place], [address], 09/02/2024 14:39:31 Referral None recorded . Procedures electroe ncephalo gram (EEG); includin g recordin g awake and drowsy (PROC) 2024 025 [facility] Central Scheduling, [address] [facility] [place], [address], 09/09/2024 07:53:16 Surgeries None recorded . Imaging MRI, brain, w/wo contrast 2024 025 [id number] [facility] (Central Scheduling), [address] [facility] [place], [address], 09/09/2024 16:50:17 Medication Orders lacosami de 150 mg tablet 2024 025 [facility], [address], [address], 09/02/2024 12:54:22 Patient TargetsNo targets recorded. Patient InstructionsNo instructions recorded. Reason for Referral None Reported. Results Created Date Observation Date Name Description Value Unit Range Abnormal Flag Note LastModifiedBy Organization Detail LastModifiedTime 09/03/1909/02/2024 CBC W/ AUTO DIFF WBC 5.87 K/uL 4.5-11 .5 Not Available [facility] (Pre-Op Clinic) [address] [place] [address] [place], [address], 09/02/2024 14:39:17 09/03/19 25 09/02/2024 CBC W/ AUTO DIFF RBC 4.66 M/uL 4.0-5. 4 Not Available [facility] (Pre-Op Clinic) [address] [place] [address] [place], [address], 09/02/2024 14:39:17 09/03/19 25 09/02/2024 CBC W/ AUTO DIFF HGB 14.1 g/dL 12.0-1 5.0 Not Available [facility] (Pre-Op Clinic) [address] [place] [address] [place], [address], 09/02/2024 14:39:17 09/03/19 25 09/02/2024 CBC W/ AUTO DIFF HCT 42.9 % 35-49 Not Available [facility] (Pre-Op Clinic) [address] [place] [address] [place], [address], 09/02/2024 14:39:17 09/03/19 25 09/02/2024 CBC W/ AUTO DIFF MCV 92.1 fL 80.0-1 00.0 Not Available [facility] (Pre-Op Clinic) [address] [place] [address] [place], [address], 09/02/2024 14:39:17 09/03/19 25 09/02/2024 CBC W/ AUTO DIFF MCH 30.3 pg 26.0-3 2.0 Not Available [facility] (Pre-Op Clinic) [address] [place] [address] [place], [address], 09/02/2024 14:39:17 09/03/19 25 09/02/2024 CBC W/ AUTO DIFF MCHC 32.9 g/dL 32.0-3 6.0 Not Available [facility] (Pre-Op Clinic) [address] [place] [address] [place], [address], 09/02/2024 14:39:17 09/03/19 25 09/02/2024 CBC W/ AUTO DIFF RDW 13.7 % 11.5-1 4.5 Not Available [facility] (Pre-Op Clinic) [address] [place] [address] [place], [address], 09/02/2024 14:39:17 09/03/19 25 09/02/2024 CBC W/ AUTO DIFF platelet count 221 K/uL 142-42 4 Not Available [facility] (Pre-Op Clinic) [address] [place] [address] [place], [address], 09/02/2024 14:39:17 09/03/19 25 09/02/2024 CBC W/ AUTO DIFF MPV 9.8 fL 6.8-10 .2 Not Available [facility] (Pre-Op Clinic) [address] [place] [address] [place], [address], 09/02/2024 14:39:17 09/03/19 25 09/02/2024 CBC W/ AUTO DIFF neutrophil % 58.4 % 50-70 Not Available [facility] (Pre-Op Clinic) [address] [facility] [place], [address], 09/02/2024 14:39:17 09/03/19 25 09/02/2024 CBC W/ AUTO DIFF lymphocyte % 33.0 % 18.0-4 2.0 Not Available [facility] (Pre-Op Clinic) [address] [place] [address] [place], [address], 09/02/2024 14:39:17 09/03/19 25 09/02/2024 CBC W/ AUTO DIFF monocyte % 5.6 % 2.0-11 .0 Not Available [facility] (Pre-Op Clinic) [address] [place] [address] [place], [address], 09/02/2024 14:39:17 09/03/19 25 09/02/2024 CBC W/ AUTO DIFF eosinophil % 2.2 % 1.0-3. 0 Not Available [facility] (Pre-Op Clinic) [address] [place] [address] [place], [address], 09/02/2024 14:39:17 09/03/19 25 09/02/2024 CBC W/ AUTO DIFF basophil % 0.3 % 0.0-2. 0 Not Available [facility] (Pre-Op Clinic) [address] [place] [address] [place], [address], 09/02/2024 14:39:17 09/03/19 25 09/02/2024 CBC W/ AUTO DIFF immature granulocytes % 0.5 % 0.0-0. 8 Not Available [facility] (Pre-Op Clinic) [address] [place] [address] [place], [address], 09/02/2024 14:39:17 09/03/19 25 09/02/2024 CBC W/ AUTO DIFF nucleated red blood cells % 0.0 % Not Available [facility] (Pre-Op Clinic) [address] [place] [address] [place], [address], 09/02/2024 14:39:17 09/03/19 25 09/02/2024 CBC W/ AUTO DIFF neutrophil # 3.42 K/uL Not Available [facility] (Pre-Op Clinic) [address] [place] [address] [place], [address], 09/02/2024 14:39:17 09/03/19 25 09/02/2024 CBC W/ AUTO DIFF lymphocyte # 1.94 K/uL Not Available [facility] (Pre-Op Clinic) [address] [place] [address] [place], [address], 09/02/2024 14:39:17 09/03/19 25 09/02/2024 CBC W/ AUTO DIFF monocyte # 0.33 K/uL Not Available [facility] (Pre-Op Clinic) [address] [place] [address] [place], [address], 09/02/2024 14:39:17 09/03/19 25 09/02/2024 CBC W/ AUTO DIFF eosinophil # 0.13 K/uL Not Available [facility] (Pre-Op Clinic) [address] [place] [address] [place], [address], 09/02/2024 14:39:17 09/03/19 25 09/02/2024 CBC W/ AUTO DIFF basophil # 0.02 K/uL Not Available [facility] (Pre-Op Clinic) [address] [place] [address] [place], [address], 09/02/2024 14:39:17 09/03/19 25 09/02/2024 CBC W/ AUTO DIFF immature gramulocytes # 0.03 K/uL Not Available [facility] (Pre-Op Clinic) [address] [place] [address] [place], [address], 09/02/2024 14:39:17 09/03/19 25 09/02/2024 CBC W/ AUTO DIFF nucleated red blood cells # 0.00 k/uL Not Available [facility] (Pre-Op Clinic) [address] [place] [address] [place], [address], 09/02/2024 14:39:17 09/03/19 25 09/02/2024 CBC W/ AUTO DIFF manual differential NO Not Available [facility] (Pre-Op Clinic) [address] [place] [address] [place], [address], 09/02/2024 14:39:17 09/03/19 25 09/02/2024 CBC W/ AUTO DIFF note Unles s other eric noted testi ng perfo [facility]med at: [facility] [address] [place] [address] Lobito everett MD Not Available [facility] (Pre-Op Clinic) [address] [place] [address] [place], [address], 09/02/2024 14:39:17 09/03/19 25 09/02/2024 COMP METAB OLIC PANEL sodium 139 mmol/ L 137-14 7 Not Available [facility] (Pre-Op Clinic) [address] [place] [address] [place], [address], 09/02/2024 19:12:45 09/03/19 25 09/02/2024 COMP METAB OLIC PANEL potassium 3.1 mmol/ L 3.5-5. 1 low Not Available [facility] (Pre-Op Clinic) [address] [place] [address] [place], [address], 09/02/2024 19:12:45 09/03/19 25 09/02/2024 COMP METAB OLIC PANEL chloride 101 mmol/ L 98-110 Not Available [facility] (Pre-Op Clinic) [address] [place] [address] [place], [address], 09/02/2024 19:12:45 09/03/19 25 09/02/2024 COMP METAB OLIC PANEL carbon dioxide 26 mmol/ L 21-30 Not Available [facility] (Pre-Op Clinic) [address] [place] [address] [place], [address], 09/02/2024 19:12:45 09/03/19 25 09/02/2024 COMP METAB OLIC PANEL anion gap 12 mmol/ L 6-14 Not Available [facility] (Pre-Op Clinic) [address] [place] [address] [place], [address], 09/02/2024 19:12:45 09/03/19 25 09/02/2024 COMP METAB OLIC PANEL glucose 104 mg/dL 70-115 Not Available [facility] (Pre-Op Clinic) [address] [place] [address] [place], [address], 09/02/2024 19:12:45 09/03/19 25 09/02/2024 COMP METAB OLIC PANEL BUN 12 mg/dL 7-17 Not Available [facility] (Pre-Op Clinic) [address] [place] [address] [place], [address], 09/02/2024 19:12:45 09/03/19 25 09/02/2024 COMP METAB OLIC PANEL creatinine 0.7 mg/dL 0.5-1. 5 Not Available [facility] (Pre-Op Clinic) [address] [place] [address] [place], [address], 09/02/2024 19:12:45 09/03/19 25 09/02/2024 COMP METAB OLIC PANEL BUN/creatini ne ratio 17 10-20 Not Available [facility] (Pre-Op Clinic) [address] [place] [address] [place], [address], 09/02/2024 19:12:45 09/03/1909/02/2024 COMP METAB OLIC PANEL glom filtration rate 101 mL/mi n >60- GFR LIMIT ATION : The eGFR equat ion CKD-E PI 2020 is not appli cable for pedia tric patie nts or great er than 90 years of age. The follo wing condi tions may alter the GFR resul t: extre mes in body size, malnu triti on or obesi ty, skele floyd muscl e disea se, parap legia or quadr ipleg ia, veget nisha diet or rapid ly soto ing kiney funct ion. Not Available [facility] (Pre-Op Clinic) [address] [place] [address] [place], [address], 09/02/2024 19:12:45 09/03/19 25 09/02/2024 COMP METAB OLIC PANEL osmolality (calculated) 289 mosmo l/kg 275-30 1 OSMOL ALITY IS A CALCU LATIO N UTILI ZING THE SERUM /PLAS MA SODIU M, GLUCO SE AND UREA NITRO GEN (BUN) LEVEL S. FOR THE MOST ACCUR ATE RESUL T A MEASU RED SERUM OSMOL ALITY IS SUGGE STED. Not Available [facility] (Pre-Op Clinic) [address] [place] [address] [place], [address], 09/02/2024 19:12:45 09/03/19 25 09/02/2024 COMP METAB OLIC PANEL total protein 6.9 g/dL 6.2-8. 2 Not Available [facility] (Pre-Op Clinic) [address] [place] [address] [place], [address], 09/02/2024 19:12:45 09/03/19 25 09/02/2024 COMP METAB OLIC PANEL albumin 4.2 g/dL 3.5-5. 0 Not Available [facility] (Pre-Op Clinic) [address] [place] [address] [place], [address], 09/02/2024 19:12:45 09/03/19 25 09/02/2024 COMP METAB OLIC PANEL calcium 9.2 mg/dL 8.5-10 .8 Not Available [facility] (Pre-Op Clinic) [address] [place] [address] [place], [address], 09/02/2024 19:12:45 09/03/19 25 09/02/2024 COMP METAB OLIC PANEL bilirubin total 0.5 mg/dL 0.2-1. 3 Not Available [facility] (Pre-Op Clinic) [address] [place] [address] [place], [address], 09/02/2024 19:12:45 09/03/19 25 09/02/2024 COMP METAB OLIC PANEL AST (SGOT) 22 IU/L 14-36 Not Available [facility] (Pre-Op Clinic) [address] [facility] [place], [address], 09/02/2024 19:12:45 09/03/19 25 09/02/2024 COMP METAB OLIC PANEL ALT (SGPT) 26 IU/L 0-35 Pleas e note new refer ence inter gisselle for ALT. Due to a recen t manuf actur er metho dolog y soto e, the refer ence inter gisselle for ALT is lower effec tive August 18, 2020. Not Available [facility] (Pre-Op Clinic) [address] [place] [address] [place], [address], 09/02/2024 19:12:45 09/03/19 25 09/02/2024 COMP METAB OLIC PANEL alk phosphatase 78 IU/L 38-126 Not Available [facility] (Pre-Op Clinic) [address] [place] [address] [place], [address], 09/02/2024 19:12:45 09/03/19 25 09/02/2024 COMP METAB OLIC PANEL note Unles s other eric noted testi ng perfo rmed at: [facility] [address] [place] [address] Lobito everett MD Not Available [facility] (Pre-Op Clinic) [address] [place] [address] [place], [address], 09/02/2024 19:12:45 09/03/19 25 09/02/2024 LACOS AMIDE (VIMP AT) note Unles s other eric noted testi ng perfo rmed at[facility] [address] [place] [address] Lobito everett MD Not Available [facility] (Pre-Op Clinic) [address] [place] [address] [place], [address], 09/09/2024 09:16:34 09/03/19 25 09/09/2024 LACOS AMIDE (VIMP AT) lacosamide 11.7 ug/mL 5.0-10 .0 high Test( s) 29915 6-Lac osami de was devel oped and its perfo rmanc e aubrey cteri stics deter mined by [facility]. It has not been clear ed or appro sofia by the Food and Drug Admin istra tion. Limit of Detec tion 0.5 . Mean plasm a danielle ntrat ions follo wing maint enanc e dose 200 mg/da y 4.99 +/- 2.51 ug/mL 400 mg/da y 9.35 +/- 4.22 ug/mL 600 mg/da y 12.46 +/- 5.60 ug/mL Perfo rmed at: - [facility] schmitt [address] [place] [address] Lab Direc tor: Jacquelin monge MD, Phone : [phone] Not Available [facility] (Pre-Op Clinic) [address] [place] [address] [place], [address], 09/09/2024 09:16:34 09/30/19 25 09/29/2024 MRI, brain , w/wo contr ast No observ ation record ed. [facility] Registration [address] [place] [address] [place], [address], 10/01/2024 07:59:40 09/30/19 25 09/29/2024 [facility], [facility] , w/wo contr [facility] [address] [place] [address] [phone] (Phone ) ALLAN Concepcion REPORT Name: MARCIA GANDHI : 1970 Accoun t #: [id number] Age: 54 Years Patien t Type: Outpat ient Sex: F Access ion#: [id number] Exam Descri ption: MRI BRAIN WOW - ROUTIN E Exam Reason : [id number] local rel symptc epi with comple x part seizur es Order Date/T jeevan: 2024 02:25: 18 PM Dictat ed By: Gonzalo hyde MD Orderi Physic lyndsey: KATHY DENT LOS Attend ing Physic lyndsey: KATHY DENT LOS EXAM DESCRI PTION: MR BRAIN WITHOU T THEN WITH IV CONTRA ST CLINIC AL HISTOR Y: [id number] local rel symptc epi with comple x part seizur es TECHNI QUE: Multip le MRI sequen santi of the brain were obtain ed in the axial, sagitt al, and collazo l orient ations withou t and with intrav enous contra st. IV Contra st: 20 cc of MultiH ance COMPAR JONATHAN: None. FINDIN GS: There is normal cortic al sulcal patter n. No extra- axial fluid collec tion seen. There is no ventri culome ramu. The skull base and cranio cervic al juncti on as well as the sella and supras ellar struct ures are grossl y unrema rkable . Flow-v oid is seen within the major intrac ranial vessel s consis tent with their patenc y. A cavum vergae is noted, a normal anatom ic varian t. No abnorm al parenc hymal signal seen. No restri cted diffus ion seen to sugges t acute ischem ia. Postco ntrast PAGE 1 OF 2 Name: MARCIA GANDHI : 1970 Accoun t #: [id number] Age: 54 Years Patien t Type: Outpat ient Sex: F Access ion#: [id number] Exam Descri ption: MRI BRAIN WOW - ROUTIN E Exam Reason : [id number] local rel symptc epi with comple x part seizur es Order Date/T jeevan: 2024 02:25: 18 PM images demons trate no suspec t enhanc ement or enhanc ing intrac ranial mass. Visual ized orbits parana starla sinuse s and mastoi d comple xes are grossl y unrema rkable . IMPRES CHERELLE: No acute large vessel infarc t, acute intrac ranial hemorr manfred, or intrac ranial mass lesion . Electr onical ly signed by: Gonzalo hyde MD 2024 02:53 PM EDT RP Workst ation: [id number] Princi pal Interp reter Name: Gonzalo hyde Provid er ID: [id number] PAGE 2 OF 2 CC'ed Logic: Orderi ng Provid er: LANDFI ELD ALEXAN LOS CC Provid er: UNKNOW N DR Attend ing Provid er: LANDFI ELD ALEXAN LOS Referr ing Provid er: LANDFI ELD ALEXAN LOS Admitt ing Provid er: LANDFI ELD ALEXAN [facility] [address] [place] [address] [place], [address], 10/01/2024 07:59:34 10/08/19 25 09/29/2024 elect romindi ephal ogram (EEG) ; inclu ding recor ding awake and drows y (PROC ) No observ ation record ed. ZHANG [facility] Registration [address] [place] [address] [place], [address], 10/07/2024 17:10:00 Result Notes Documentation Provider Name and Address Organization Details Recorded Time Mri, Brain, W/wo Contrast : [address] [place] [address] (Phone) IMAGING REPORT ___ Name: MARCIA THORNE : 1970 Age: 54 Years Patient Type: Outpatient Sex: F Exam Description: MRI BRAIN WOW - ROUTINE Exam Reason: [id number] local rel symptc epi with complex part seizures Order Date/Time: 09/29/2024 02:25:18 PM Dictated By: Gonzalo Steinberg MD Ordering Physician: PRIETO LAI Attending Physician: PRIETO LAI ___ EXAM DESCRIPTION: MR BRAIN WITHOUT THEN WITH IV CONTRAST CLINICAL HISTORY: [id number] local rel symptc epi with complex part [...] ischemia. Postcontrast PAGE 1 OF 2 Name: MARCIA THORNE : 1970 Age: 54 Years Patient Type: Outpatient Sex: F Exam Description: MRI BRAIN WOW - ROUTINE Exam Reason: [id number] local rel symptc epi with complex part seizures Order Date/Time: 09/29/2024 02:25:18 PM ___ images demonstrate no suspect enhancement or enhancing intracranial mass. Visualized orbits paranasal sinuses and mastoid complexes are grossly unremarkable. IMPRESSION: No acute large vessel infarct, acute intracranial hemorrhage, or intracranial mass lesion. Electronically signed by: Gonzalo Steinberg MD 09/29/2024 02:53 PM EDT RP Principal Surgical Instrument Mechanic Name: Gonzalo Steinberg Provider ID: [id number] PAGE 2 OF 2 CC'ed Logic: Ordering Provider: NIXON TOM CC Provider: NIEVES ISSA Attending Provider: NIXON TOM Referring Provider: NIXON TOM Admitting Provider: NIXON TOM [facility] 10/01/2024 07:59:34 Medical Equipment None Reported. Medications Name Sig [...] Last Updated DateTime 167.64 cm 38.7 kg/m2 131955. 17 g 97 [degF] 97 % 97 % 74 /min 130 mm[Hg] 80 mm[Hg] Kelsie Toney [place] - [facility] - [place] & [place] 12:34:23 Social History None recorded. Functional Status None recorded. Mental Status None recorded. Family History Relationship Description Onset Age of this Age Resolved Age Notes LastModified by Organization Details LastModified Time Father No current problems or disability [email or web address] Not available 08/27 11:46:39 Mother No current problems or disability [email or web address] Not available 08/27 11:46:39 Medical History Condition Response Anxiety/Depression Y Hypertension Y Gynecological HistoryNo gynecological history recorded. Obstetrics History GPAL:G 0 P 0 0 0 0 Past Encounters Encounter ID Performer Location Encounter Start Date Encounter Closed Date Diagnosis/Indication Diagnosis SNOMED-CT Code Diagnosis ICD10 Code Diagnosis Note [id number] Prieto Lai M.D [facility] [address] [address] 09/02/2024 12:21:08 09/02/2024 12:54:53 Focal onset impaired awareness epileptic seizure 731534575 G40.209 Health Concerns Section Related Observation LastModified by Organization Detai ls LastModified Time None Recorded Concern Status LastModified by Organization Details LastModified Time None Recorded Advance Directives Directive None Recorded Payers Insurance Date Sequence Insurance Name Policy Number Policy Patel Covered Member ID Patel Member ID Guarantor Name 10/21/2024 1 [place] [id number] 1 Kyle Thorne [id number] Marcia Thorne 09/08/2024 1 [place] [id number] 1 Marcia Thorne [id number] Marcia Thorne Notes Date Note Type Note Provider Name and Address Organization Details Recorded Time 09/02/2024 text/html Ms. Thorne is a 54 y/o F who is [...] BID which has helped. Prieto Lai M.D [address] [place] [address], [address], [place], [address], [facility] - [place] - [place] 09/02/2024 12:54:53 OBGyn Episode No OBEpisode recorded.
--- OUTSIDE RECORDS SUMMARY | 2024-10-21 10:29 | XMS_ITS | Clinical Summary ---
Author Organization [employer] [facility] [employer] Address [address] [address] Care Team Providers Care Adapted Physical Education Aide Name Role Phone Sonido Redmond MD Primary Care Provider + [phone] Allergies Active Allergy Reactions Criticality Noted Date Comments Codeine Low 02/01/2020 Other reaction(s): Unknown Guaifenesin Low 02/01/2020 Other reaction(s): Unknown Morphine Low 02/01/2020 Other reaction(s): Unknown Medications gabapentin (NEURONTIN) 600 MG tablet Take 1 tablet (600 mg total) by mouth in the morning and 1 tablet (600 mg total) at noon and 1 tablet (600 mg total) in the evening. Max Daily Amount: 1,800 mg. 09/19/2022 Active lacosamide (VIMPAT) 150 mg tab Take 1 tablet (150 mg total) by mouth 2 (two) times daily. Max Daily Amount: 300 mg 60 tablet 5 03/02/2024 Active lacosamide (VIMPAT) 150 mg tab Take 1 tablet (150 mg total) by mouth 2 (two) times daily. Max Daily Amount: 300 mg 60 tablet 5 03/10/2024 Active Active Problems Problem Noted Date Diagnosed Date Localization-related epilepsy, intractable 10/18 CKD (chronic kidney disease) stage 2, GFR 60-89 ml/min 09/05/2020 Immunizations Name Administration Dates Next Due (Shingrix, Recombinant, Adjuvanted) Zoster Vacci ne IM 07/17/2022 Hepatitis A Adult 04/09/2018 Influenza Quad-qiv Non Pf 02/24/2016 Influenza Three-TIV Non-PF 4+YRS IM 02/24/2016 Family History Medical History Relation Name Comments Cancer Other Heart disease Other Relation Name Status Comments Other Social History Tobacco Use Types Packs/Day Years Used Date Smoking Tobacco: Never Smokeless Tobacco: Never Tobacco Cessation:Counseling Given: Not Answered Alcohol Use Standard Drinks/Week Comments Never 0 (1 standard drink = 0.6 oz pur e alcohol) Interpersonal Safety Answer Date Record ed Family or friends hurt you Not on file 05/17 Family or friends insult you Not on file Family or friends threaten you Not on file 0 05/17/2023 Family or friends scream or curse at you Not on file 05/17/2023 Housing Stability Answer Date Recorded Living situation today Not on file Living situation problems Not on file 2023 Food Insecurity Answer Date Recorded Food run out past 12 months Not on file 04/29 Food did not last past 12 months Not on file 05/17/2023 Employment Answer Date Recorded Help finding and keeping a job Not on file 0 05/17/2023 Family and Community Support Answer Aubrey e Recorded Help with Day to Day Activities Not on file 05/17/2023 Feeling Lonely or Isolated Not on file 05/17 Educational Attainment Answer Date Aba rded Speak language other than Andorran at home Not on file 05/17/2023 Want help with school or training Not on file 05/17/2023 Depression Answer Date Recorded PHQ-2 Risk Not on file 05/17/2023 Disabilities Answer Date Recorded Difficulty concentrating Not on file 024 Difficulty doing errands alone Not on file 0 05/17/2023 Substance Use Answer Date Recorded Used prescription meds for non-medical reasons N ot on file 05/17/2023 Used illegal drugs past 12 months Not on file 05/17/2023 Comments Unknown Sex and Gender Information Value Date Recorded Sex Assigned at Not on file Legal Sex Female 5:39 PM CDT Gender Identity Not on file Sexual Orientation Not on file Last Filed Vital Signs Vital Sign Reading Time Taken Comments Blood Pressure 138/65 10/20/2022 8:45 AM EDT Pulse 74 10/20/2022 8:45 AM EDT Temperature 36.8 C (98.2 F) 10/20/2022 8:45 AM EDT Respiratory Rate 16 10/18/2022 9:37 PM EDT Oxygen Saturation 96% 10/18/2022 9:37 PM EDT Inhaled Oxygen Concentration - - Weight 101 kg (222 lb 10.6 oz) 10/04/2022 8:28 A M EDT Height 167.6 cm (5' 6 ) 10/04/2022 8:28 AM EDT Body Mass Index 35.94 10/04/2022 8:28 AM EDT Plan of Treatment Health Maintenance Due Date Last Done Comments CT Colonography 1968 Colonoscopy 1968 Colorectal Cancer Screening 1968 FOBT/FIT 1968 Fit-DNA (Cologuard) 1968 Sigmoidoscopy 1968 Depression Screening (12+) 1980 HIV Screening 1983 Hepatitis C Screening 1986 DTAP/TDAP/TD VACCINES (1 - Tdap) 1987 Pap Smear 1989 Breast Cancer Screening 2008 Lipid Panel 2013 Pneumococcal 50+ years (1 of 1 - PCV) 2018 Shingles Vaccine (Zoster) (2 of 2) 09/11/20222022 Tobacco Cessation Counseling and Screening (12+) 10/0410/04/2022 COVID-19 VACCINE ( season) 2023 Influenza Vaccine (Season Ended) 2024 02/24/20 16 Insurance [facility] [place] [id number] BLUE CROSS/BLUE SHIELD Advance Directives For more information, please contact: [phone] * Full Code (Latest Code Status on File) Date Activated Date Inactivated Comments 10/18/2022 9:32 AM 10/20/2022 1:59 PM Care Teams Adapted Physical Education Aide Relationship Specialty Start Date End Date Sonido Redmond MD [address] [place] [address] PCP - General Family Medicine 10/04/22
--- OUTSIDE RECORDS SUMMARY | 2024-10-21 10:29 | XMS_ITS | Referral Summary ---
Author Organization [employer] [employer] Address [address] [place] [address] Care Team Providers Care Community Recreation Coordinator Name Role Phone Sonido Redmond MD Primary Care Provider + [phone] Allergies Active Allergy Reactions Criticality Noted Date [...] 02/24/2016 Influenza Three-TIV Non-PF 4+YRS IM 02/24/2016 Social History Tobacco Use Types Packs/Day Years [...] Date Aba rded Speak language other than Nepali at home Not on file 05/17/2023 Want [...] 10/04/2022 8:28 AM EDT Plan of Treatment Not on file Insurance [place] [id number] BLUE CROSS/BLUE SHIELD Advance Directives For more information, please contact: [phone] * Full Code (Latest Code Status on File) Date Activated Date Inactivated Comments 10/18/2022 9:32 AM 10/20/2022 1:59 PM Care Teams Community Recreation Coordinator Relationship Specialty Start Date End Date Sonido Redmond MD [address] [place] [address] [place] [address] PCP - General Family Medicine 10/04/22
--- OUTSIDE RECORDS SUMMARY | 2024-10-21 10:29 | XMS_ITS | Continuity of Care Document ---
Author Organization [facility] Address [address] [place] [address] Assessment Encounter Date Assessment Date Assessment LastModified by Organization Details LastModified Time 09/02/2024 09/02/2024 -MRI brain eval epilepsy -EEG -Vimpat 150 mg BID (ANN Reviewed) -labs: CBC, CMP, Vimpat level -f/u as scheduled [facility] Not available 09/02/2024 12:54:38 Plan of Treatment Reminders Order Date Submit Date Provider Last Modified By Organization Details Last Modified Time Details Appointments OV EST 15 2024 02:15P Maddie Lai M.D Not available Not available Not available Lab lacosami de, serum 2024 025 [facility] (Lab Registration) , [address] [place] [address] [place], [id number], 09/09/2024 07:53:11 CMP, serum or plasma 2024 025 [facility] (Lab Registration) , [address] [place] [address] [place], [address], 09/02/2024 19:53:24 CBC w/ auto diff 2024 025 [facility] (Lab Registration) , [address] [place] [address] [place], [id number], 09/02/2024 14:39:31 Referral None recorded . Procedures electroe ncephalo gram (EEG); includin g recordin g awake and drowsy (PROC) 2024 025 [facility] Central Scheduling, [address] [place] [address] [place], [id number], 09/09/2024 07:53:16 Surgeries None recorded . Imaging MRI, brain, w/wo contrast 2024 025 [id number] [facility] (Central Scheduling), [address] [place] [address] [place], [address], 09/09/2024 16:50:17 Medication Orders lacosami de 150 mg tablet 2024 025 [facility], [address], [address], 09/02/2024 12:54:22 Patient TargetsNo targets recorded. Patient InstructionsNo instructions recorded. Reason for Referral None Reported. Results Created Date Observation Date Name Description Value Unit Range Abnormal Flag Note LastModifiedBy Organization Detail LastModifiedTime 09/30/1909/29/2024 MRI, brain , w/wo contr ast No observ ation record ed. [facility] Registration [address] [place] [address] [place], [id number], 10/01/2024 07:59:40 09/30/1909/29/2024 MRI, brain , w/wo contr ast [facility] [address] [place] [address] (Phone ) ALLAN Concepcion REPORT Name: MARCIA GANDHI : 1970 Accoun t #: [id number] Age: 54 Years Patien t Type: Outpat ient Sex: F Access ion#: [id number] Exam Descri ption: MRI BRAIN WOW - ROUTIN E Exam Reason : [id number] local rel symptc epi with comple x part seizur es Order Date/T jeevan: 2024 02:25: 18 PM Dictat ed By: Gonzalo hyde MD Orderi ng Physic lyndsey: KATHY DENT LOS Attend ing Physic lyndsey: KATHY DENT LOS EXAM DESCRI PTION: MR BRAIN WITHOU T THEN WITH IV CONTRA [facility] HISTOR Y: [id number] local rel symptc epi with comple x [...] MARCIA GANDHI : 1970 Accoun t #: [id number] Age: 54 Years Patien t Type: Outpat ient Sex: F Access ion#: [id number] Exam Descri ption: MRI BRAIN WOW - ROUTIN E Exam Reason : [id number] local rel symptc epi with comple x [...] ing Provid er: LANDFI ELD ALEXAN LOS [facility] (Central Scheduling) [address] [place] [address] [place], [address], 10/01/2024 07:59:34 10/08/19 25 09/29/2024 elect romindi ephal ogram (EEG) ; inclu ding recor ding awake and drows y (PROC ) No observ ation record ed. [facility] Registration [address] [place] [address] [place], [id number], 10/07/2024 17:10:00 Result Notes None recorded. Medical Equipment None Reported. Medications Name Sig [...] and Address Organization Details Last Updated DateTime 5 167.64 cm 38.7 kg/m2 904333. 17 g 97 [degF] 97 % 97 % 74 /min 130 mm[Hg] 80 mm[Hg] Kelsiejann Toney [place] - [facility] - [place] & [place] 5 12:34:23 Social History None recorded. Functional Status None recorded. Mental Status None recorded. Family History Relationship Description Onset Age of this Age Resolved Age Notes LastModified by Organization Details LastModified Time Father No current problems or disability [email or web address] Not available 08/27 11:46:39 Mother No current problems or disability [email or web address] Not available 08/27 11:46:39 Medical History Condition Response Anxiety/Depression Y Hypertension Y Gynecological HistoryNo gynecological history recorded. Obstetrics History GPAL:G 0 P 0 0 0 0 Past Encounters Encounter ID Performer Location Encounter Start Date Encounter Closed Date Diagnosis/Indication Diagnosis SNOMED-CT Code Diagnosis ICD10 Code Diagnosis Note [id number] Prieto Lai M.D [facility] [address],[facility] [address] [place] [id number] 09/02/2024 12:21:08 09/02/2024 12:54:53 Focal onset impaired awareness epileptic seizure 961285085 G40.209 Health Concerns Section Related Observation LastModified by Organization Michael ls LastModified Time None Recorded Concern Status LastModified by Organization Details LastModified Time None Recorded Payers Encounter Date Sequence Insurance Name Policy Number Policy Patel Covered Member ID Patle Member ID Guarantor Name 09/02/2024 1 [place] [id number] 1 Marcia Ohara [id number] Marcia Ohara Notes Date Note Type Note Provider Name [...] BID which has helped. Prieto Lai M.D [address] [place] [address], [address], [place], [address], [place] [place] 09/02/2024 12:54:53 OBGyn Episode No OBEpisode recorded.
--- OUTSIDE RECORDS SUMMARY | 2024-10-21 10:29 | XMS_ITS | Clinical Summary ---
Author Organization [facility] Address [address] [place] [address] Care Team Providers Care Senior Receptionist Name Role Phone Mohsen Flanagan PREETI Primary Care Provider [phone] Allergies Active Allergy Reactions Criticality Noted Date Comments Codeine Unknown - Patient st ates they do not know rxn details Low 02/01/2020 Guaifenesin Unknown - Patient st ates they do not know rxn details Low 02/01/2020 Morphine Unknown - Patient st ates they do not know rxn details Low 02/01/2020 Medications SELENIUM ER PO Take 1 tablet twice daily 02/01/2020 Active gabapentin (Neurontin) 600 MG tablet TAKE 1 TABLET 3 TIMES DAILY. 02/01/2020 Active divalproex (Depakote) [address] tablet TAKE 2 TABLETS BY MOUTH TWICE DAILY FOR SEIZURES 08/08/2021 Active levETIRAcetam (Keppra) 750 MG tablet TAKE 2 TABLETS BY MOUTH TWICE DAILY FOR SEIZURES 09/01/2021 Active lacosamide (Vimpat) 150 mg tablet tablet TAKE 1 TABLET BY MOUTH TWICE DAILY. MAXIMUM DAILY DOSE IS 300 MG. 10/20/2022 Active hydroCHLOROthia zide (HYDRODiuril) 25 MG tablet Take 1 tablet (25 mg) by mouth 1 (one) time each day. 01/05/2024 Active topiramate 50 MG tablet TAKE 1 TABLET BY MOUTH TWICE DAILY FOR SEIZURES 12/24/2023 Active Doxylamine Succinate, Sleep, (SLEEP AID PO) Take by mouth. Active Active Problems Problem Noted Date Diagnosed Date CKD (chronic kidney disease) stage 2, GFR 60-89 ml/min 09/05/2020 Immunizations Immunization Administration Dates Next Due Hep A, Adult 04/09/2018 Influenza, injectable, quadrivalent 02/24/2016 Influenza, seasonal, injectable 02/24/2016 Tdap 10/02/2022 Zoster, Recombinant 10/02/2022,07/17/2022 Family History Medical History Relation Name Comments No Known Problems Father No Known Problems Mother Relation Name Status Comments Father Mother Social History Tobacco Use Types Packs/Day Years Used Date Smoking Tobacco: Never Passive Smoke Exposure: Never Smokeless Tobacco: Never Alcohol Use Standard Drinks/Week Comments Never 0 (1 standard drink = 0.6 oz pur e alcohol) Comments Unknown Sex and Gender Information Value Date Recorded Sex Assigned at Not on file Legal Sex Female 8:35 PM EDT Gender Identity Not on file Sexual Orientation Not on file Last Filed Vital Signs Vital Sign Reading Time Taken Comments Blood Pressure 126/72 01/10/2024 9:43 AM EDT Pulse 83 01/10/2024 9:43 AM EDT Temperature - - Respiratory Rate - - Oxygen Saturation 96% 01/10/2024 9:43 AM EDT Inhaled Oxygen Concentration - - Weight 108 kg (239 lb) 01/10/2024 9:43 AM EDT Height 170.2 cm (5' 7 ) 02/16/2016 1:43 PM EDT Body Mass Index 37.43 02/16/2016 1:43 PM EDT Plan of Treatment Upcoming Encounters Date Type Department Care Team (Late st Contact Info) Description 01/22/2025 9:40 AM EDT Office Visit [place] [address] [place] [address] Taylor Francois, DIRECTOR OF MECHANICAL ENGINEERING [address] [address] Health Maintenance Due Date Last Done Comments [facility]-Depression Screening 1968 [facility]-HIV Screening 1968 [facility]-Hepatitis C Screening 1968 [facility]-Infant/Child/Adol SDOH Screenings 1968 [facility]- SDOH Screenings 1986 [facility]-Adult SDOH Screenings 1986 [facility]-Hepatitis B Vaccines (1 of 3 - 19+ 3-dose series) 1987 [facility]-Pap Smear 1989 [facility]-Cervical Cancer Screening 1998 [facility]-HPV/Cotest 1998 CT Colonography 2013 Colonoscopy 2013 FIT-DNA 2013 FIT 2013 FOBT 2013 Sigmoidoscopy 2013 [facility]-Colorectal Cancer Screening 2013 [facility]-Breast Cancer Screening 2018 [facility]-Pneumococcal Vaccine: 50 + Years (1 of 1 - PCV) 2018 [id number] Vaccine (1 - 2023- season) 2023 [facility]-Influenza Vaccine (Seaso n Ended) 2024 02/24/2016, 02/24/2016 [facility]-DTaP,Tdap,and Td Vaccine s (2 - Td or Tdap) 10/02/2032 10/02/2022 [facility]-Hepatitis A Vaccines Aged Out 04/09/2018 No longer eligible based on patient's age to complete this topic [facility]-Zoster Vaccines Completed 10/02/2022, 07/17/2022 [facility]-Obesity Intervention Completed 01/10/2024 HPV Vaccines Aged Out No longer eligi ble based on patient's age to complete this topic [facility]-HIB Vaccines Aged Out No longer e ligible based on patient's age to complete this topic [facility]-IPV Vaccines Aged Out No longer e ligible based on patient's age to complete this topic [facility]-Rotavirus Vaccines Aged Out No lo nger eligible based on patient's age to complete this topic Insurance ANTH Care Teams Senior Receptionist Relationship Specialty Start Date End Date Mohsen Flanagan APRN [address] [place] [address] PCP - General 11/02/21
[2024-10-21 10:54] VITALS: BP 127/78; PULSE 60; RESP 14; O2SAT 97; BMI 39.5
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
== END 2024-10-21 23:59 | disposition home or self-care (01) ==
PROVIDERS: PCP Nurse Practitioner Family; Visit Provider Nurse Practitioner Family
DX: M25.561 Pain in right knee (principal); M25.562 Pain in left knee
CPT/HCPCS: 99212; G0463

== ENCOUNTER 2024-11-23 13:49 | Outpatient (POV) | payer BC, SELFPAY ==
--- OUTSIDE RECORDS SUMMARY | 2024-11-23 13:52 | XMS_ITS | Clinical Summary ---
Author Organization [facility] Address [address] [place] [address] Care Team Providers Care Allergist/Immunologist Name Role Phone Mohsen Flanagan PREETI Primary Care Provider +[phone] Allergies Active Allergy Reactions Criticality Noted Date [...] Description 01/22/2025 9:40 AM EDT Office Visit [place] [address] [place] [address] Taylor Francois, PHARMACY GRADUATE INTERN [address] [address] Health Maintenance Due Date Last [...] Years (1 of 1 - PCV) 2018 [id number] Vaccine (1 - season) 2023 [facility]-Influenza Vaccine (#1) 12/28/202402/23, 02/24/2016 [facility]-DTaP,Tdap,and Td Vaccine s (2 - [...] complete this topic Insurance ANTH Care Teams Allergist/Immunologist Relationship Specialty Start Date End Date Mohsen Flanagan APRN [address] [place] [address] PCP - General 11/02/21
--- OUTSIDE RECORDS SUMMARY | 2024-11-23 13:52 | XMS_ITS | Clinical Summary ---
Author Organization [facility] [place] Address [address] [place] [address] Care Team Providers Care Roller Checker Name Role Phone Sonido Redmond MD Primary Care Provider + [phone] Allergies Active Allergy Reactions Criticality Noted Date [...] drink = 0.6 oz pur e alcohol) Food Insecurity Answer Date Recorded Food run [...] Date Aba rded Speak language other than Swedish at home Not on file 05/17/2023 Want help with school or training Not on file 05/17/2023 Substance Use Answer Date Recorded Used [...] Counseling and Screening (12+) 10/0410/04/2022 COVID-19 VACCINE (1 - 2023- season) 2023 Influenza Vaccine (#1) 2024 02/24/2016 Insurance [facility] [place] [id number] BLUE CROSS/BLUE SHIELD Advance Directives For more information, please contact: [phone] * Full Code (Latest Code Status on File) Date Activated Date Inactivated Comments 10/18/2022 9:32 AM 10/20/2022 1:59 PM Care Teams Roller Checker Relationship Specialty Start Date End Date Sonido Redmond MD [address] [place] [address] [place] [address] PCP - General Family Medicine 10/04/22
--- OUTSIDE RECORDS SUMMARY | 2024-11-23 13:52 | XMS_ITS | Referral Summary ---
Author Organization [employer] ([place], [place], [place], [place]) Address [address] [place] [address] Care Team Providers Care Mercury Recoverer Name Role Phone Sonido Redmond MD Primary Care Provider + [phone] Allergies Active Allergy Reactions Criticality Noted Date [...] Date Aba rded Speak language other than Bolivian at home Not on file 05/17/2023 Want [...] Plan of Treatment Not on file Insurance [facility] KITTY SAMANIEGO [id number] BLUE CROSS/BLUE SHIELD Advance Directives For more information, please contact: [phone] * Full Code (Latest Code Status on File) Date Activated Date Inactivated Comments 10/18/2022 9:32 AM 10/20/2022 1:59 PM Care Teams Mercury Recoverer Relationship Specialty Start Date End Date Sonido Redmond MD [address] [place] [address] [place] [address] PCP - General Family Medicine 10/04/22
--- OUTSIDE RECORDS SUMMARY | 2024-11-23 13:52 | XMS_ITS | Data Portability ---
Author Organization [place] - [facility] - [facility] ADMIN Address [address] [place] [id number] Assessment Encounter Date Assessment Date Assessment LastModified by Organization Details LastModified Time 09/02/2024 09/02/2024 -MRI brain eval epilepsy -EEG -Vimpat 150 mg BID (ANN Reviewed) -labs: CBC, CMP, Vimpat level -f/u [facility] 09/02/2024 12:54:38 Plan of Treatment Reminders Order Date Submit Date Provider Last Modified By Organization Details Last Modified Time Details Appointments OV EST 15 2024 02:15P Maddie Lai M.D Not available Not available Not available Lab lacosami de, serum 2024 025 [facility] (Lab Registration) , [address] [place] [address] [place], [address], 09/09/2024 07:53:11 CMP, serum or plasma 2024 025 [facility] (Lab Registration) , [address] [place] [address] [place], [address], 09/02/2024 19:53:24 CBC w/ auto diff 2024 025 [facility] (Lab Registration) , [address] [place] [address] [place], [address], 09/02/2024 14:39:31 Referral None recorded . Procedures electroe ncephalo gram (EEG); includin g recordin g awake and drowsy (PROC) 2024 025 [facility] Central Scheduling, [address] [facility] [place], [address], 09/09/2024 07:53:16 Surgeries None recorded . Imaging MRI, brain, w/wo contrast 2024 025 [id number] (Central Scheduling), [address] [facility], [address], 09/09/2024 16:50:17 Medication Orders lacosami de 150 mg tablet 2024 025 [facility], [address], [address], 09/02/2024 12:54:22 Patient TargetsNo targets recorded. Patient InstructionsNo instructions recorded. Reason for Referral None Reported. Results Created Date Observation Date Name Description Value Unit Range Abnormal Flag Note LastModifiedBy Organization Detail LastModifiedTime 09/03/1909/02/2024 CBC W/ AUTO DIFF WBC 5.87 K/uL 4.5-11 .5 Not Available [facility] (Pre-Op Clinic) [address] [place] [address] [place], [address], 09/02/2024 14:39:17 09/03/19 25 09/02/2024 CBC W/ AUTO DIFF RBC 4.66 M/uL 4.0-5. 4 Not Available [facility] (Pre-Op Clinic) [address] [place] [address] [place], [address], 09/02/2024 14:39:17 09/03/19 25 09/02/2024 CBC W/ AUTO DIFF HGB 14.1 g/dL 12.0-1 5.0 Not Available [facility] (Pre-Op Clinic) [address] [place] [address] [place], [address], 09/02/2024 14:39:17 09/03/19 25 09/02/2024 CBC W/ AUTO DIFF HCT 42.9 % 35-49 Not Available [facility] (Pre-Op Clinic) [address] [place] [address] [place], [address], 09/02/2024 14:39:17 09/03/19 25 09/02/2024 CBC W/ AUTO DIFF MCV 92.1 fL 80.0-1 00.0 Not Available [facility] (Pre-Op Clinic) [address] [place] [address] [place], [address], 09/02/2024 14:39:17 09/03/19 25 09/02/2024 CBC W/ AUTO DIFF MCH 30.3 pg 26.0-3 2.0 Not Available [facility] (Pre-Op Clinic) [address] [place] [address] [place], [address], 09/02/2024 14:39:17 09/03/19 25 09/02/2024 CBC W/ AUTO DIFF MCHC 32.9 g/dL 32.0-3 6.0 Not Available [facility] (Pre-Op Clinic) [address] [place] [address] [place], [address], 09/02/2024 14:39:17 09/03/19 25 09/02/2024 CBC W/ AUTO DIFF RDW 13.7 % 11.5-1 4.5 Not Available [facility] (Pre-Op Clinic) [address] [place] [address] [place], [address], 09/02/2024 14:39:17 09/03/19 25 09/02/2024 CBC W/ AUTO DIFF platelet count 221 K/uL 142-42 4 Not Available [facility] (Pre-Op Clinic) [address] [place] [address] [place], [address], 09/02/2024 14:39:17 09/03/19 25 09/02/2024 CBC W/ AUTO DIFF MPV 9.8 fL 6.8-10 .2 Not Available [facility] (Pre-Op Clinic) [address] [place] [address] [place], [address], 09/02/2024 14:39:17 09/03/19 25 09/02/2024 CBC W/ AUTO DIFF neutrophil % 58.4 % 50-70 Not Available [facility] (Pre-Op Clinic) [address] [facility], [address], 09/02/2024 14:39:17 09/03/19 25 09/02/2024 CBC W/ AUTO DIFF lymphocyte % 33.0 % 18.0-4 2.0 Not Available [facility] (Pre-Op Clinic) [address] [place] [address] [place], [address], 09/02/2024 14:39:17 09/03/19 25 09/02/2024 CBC W/ AUTO DIFF monocyte % 5.6 % 2.0-11 .0 Not Available [facility] (Pre-Op Clinic) [address] [place] [address] [place], [address], 09/02/2024 14:39:17 09/03/19 25 09/02/2024 CBC W/ AUTO DIFF eosinophil % 2.2 % 1.0-3. 0 Not Available [facility] (Pre-Op Clinic) [address] [place] [address] [place], [address], 09/02/2024 14:39:17 09/03/19 25 09/02/2024 CBC W/ AUTO DIFF basophil % 0.3 % 0.0-2. 0 Not Available [facility] (Pre-Op Clinic) [address] [place] [address] [place], [address], 09/02/2024 14:39:17 09/03/19 25 09/02/2024 CBC W/ AUTO DIFF immature granulocytes % 0.5 % 0.0-0. 8 Not Available [facility] (Pre-Op Clinic) [address] [place] [address] [place], [address], 09/02/2024 14:39:17 09/03/19 25 09/02/2024 CBC W/ AUTO DIFF nucleated red blood cells % 0.0 % Not Available [facility] (Pre-Op Clinic) [address] [place] [address] [place], [address], 09/02/2024 14:39:17 09/03/19 25 09/02/2024 CBC W/ AUTO DIFF neutrophil # 3.42 K/uL Not Available [facility] (Pre-Op Clinic) [address] [place] [address] [place], [address], 09/02/2024 14:39:17 09/03/19 25 09/02/2024 CBC W/ AUTO DIFF lymphocyte # 1.94 K/uL Not Available [facility] (Pre-Op Clinic) [address] [place] [address] [place], [address], 09/02/2024 14:39:17 09/03/19 25 09/02/2024 CBC W/ AUTO DIFF monocyte # 0.33 K/uL Not Available [facility] (Pre-Op Clinic) [address] [place] [address] [place], [address], 09/02/2024 14:39:17 09/03/19 25 09/02/2024 CBC W/ AUTO DIFF eosinophil # 0.13 K/uL Not Available [facility] (Pre-Op Clinic) [address] [place] [address] [place], [address], 09/02/2024 14:39:17 09/03/19 25 09/02/2024 CBC W/ AUTO DIFF basophil # 0.02 K/uL Not Available [facility] (Pre[facility]Op Clinic) [address] [place] [address] [place], [address], 09/02/2024 14:39:17 09/03/19 25 09/02/2024 CBC W/ AUTO DIFF immature gramulocytes # 0.03 K/uL Not Available [facility] (Pre-Op Clinic) [address] [place] [address] [place], [address], 09/02/2024 14:39:17 09/03/19 25 09/02/2024 CBC W/ AUTO DIFF nucleated red blood cells # 0.00 k/uL Not Available [facility] (Pre-Op [facility]) [address] [place] [address] [place], [address], 09/02/2024 14:39:17 09/03/19 25 09/02/2024 CBC W/ AUTO DIFF manual differential NO Not Available [facility] (Pre-Op Clinic) [address] [place] [address] [place], [address], 09/02/2024 14:39:17 09/03/19 25 09/02/2024 CBC W/ AUTO DIFF note Unles s other eric noted testi ng [facility] [address] [place] [address] Lobito everett MD Not Available [facility] (Pre-Op Clinic) [address] [place] [address] [place], [address], 09/02/2024 14:39:17 09/03/19 25 09/02/2024 COMP METAB OLIC PANEL sodium 139 mmol/ L 137-14 7 Not Available [facility] (Pre-Op Clinic) [address] [place] [address] [place], [address], 09/02/2024 19:12:45 09/03/19 25 09/02/2024 COMP METAB OLIC PANEL potassium 3.1 mmol/ L 3.5-5. 1 low Not Available [facility] (Pre-Op Clinic) [address] [place] [address] [place], [address], 09/02/2024 19:12:45 09/03/19 25 09/02/2024 COMP METAB OLIC PANEL chloride 101 mmol/ L 98-110 Not Available [facility] (Pre-Op [facility]) [address] [place] [address] [place], [address], 09/02/2024 19:12:45 09/03/19 25 09/02/2024 COMP METAB OLIC PANEL carbon dioxide 26 mmol/ L 21-30 Not Available [facility] ([facility]Op [facility]) [address] [place] [address] [place], [address], 09/02/2024 19:12:45 09/03/19 25 09/02/2024 COMP METAB OLIC PANEL anion gap 12 mmol/ L 6-14 Not Available [facility] (Pre-Op Clinic) [address] [place] [address] [place], [address], 09/02/2024 19:12:45 09/03/19 25 09/02/2024 COMP METAB OLIC PANEL glucose 104 mg/dL 70-115 Not Available [facility] (Pre-Op Clinic) [address] [place] [address] [place], [address], 09/02/2024 19:12:45 09/03/19 25 09/02/2024 COMP METAB OLIC PANEL BUN 12 mg/dL 7-17 Not Available [facility] (Pre-Op Clinic) [address] [place] [address] [place], [address], 09/02/2024 19:12:45 09/03/19 25 09/02/2024 COMP METAB OLIC PANEL creatinine 0.7 mg/dL 0.5-1. 5 Not Available [facility] (Pre[facility]Op [facility]) [address] [place] [address] [place], [address], 09/02/2024 19:12:45 09/03/19 25 09/02/2024 COMP METAB OLIC PANEL BUN/creatini ne ratio 17 10-20 Not Available [facility] (Pre-Op Clinic) [address] [place] [address] [place], [address], 09/02/2024 19:12:45 09/03/1909/02/2024 COMP METAB OLIC PANEL [...] soto ing kiney funct ion. Not Available [facility] (Pre-Op Clinic) [address] [place] [address] [place], [address], 09/02/2024 19:12:45 09/03/19 25 09/02/2024 COMP METAB OLIC PANEL osmolality (calculated) 289 mosmo l/kg 275-30 1 OSMOL ALITY IS A CALCU LATIO N UTILI ZING THE SERUM /PLAS MA SODIU M, GLUCO SE AND UREA NITRO GEN (BUN) LEVEL S. FOR THE MOST ACCUR ATE RESUL T A MEASU RED SERUM OSMOL ALITY IS SUGGE STED. Not Available [facility] (Pre-Op Clinic) [address] [place] [address] [place], [address], 09/02/2024 19:12:45 09/03/19 25 09/02/2024 COMP METAB OLIC PANEL total protein 6.9 g/dL 6.2-8. 2 Not Available [facility] (Pre-Op Clinic) [address] [place] [address] [place], [address], 09/02/2024 19:12:45 09/03/19 25 09/02/2024 COMP METAB OLIC PANEL albumin 4.2 g/dL 3.5-5. 0 Not Available [facility] (Pre-Op Clinic) [address] [place] [address] [place], [address], 09/02/2024 19:12:45 09/03/19 25 09/02/2024 COMP METAB OLIC PANEL calcium 9.2 mg/dL 8.5-10 .8 Not Available [facility] (Pre-Op Clinic) [address] [place] [address] [place], [address], 09/02/2024 19:12:45 09/03/19 25 09/02/2024 COMP METAB OLIC PANEL bilirubin total 0.5 mg/dL 0.2-1. 3 Not Available [facility] (Pre-Op Clinic) [address] [place] [address] [place], [address], 09/02/2024 19:12:45 09/03/19 25 09/02/2024 COMP METAB OLIC PANEL AST (SGOT) 22 IU/L 14-36 Not Available [facility] (Pre-Op Clinic) [address] [place], [address], 09/02/2024 19:12:45 09/03/19 25 09/02/2024 COMP METAB OLIC PANEL ALT (SGPT) 26 IU/L 0-35 Pleas e note new refer ence inter gisselle for ALT. Due to a recen t manuf actur er metho dolog y soto e, the refer ence inter gisselle for ALT is lower effec tive August 18, 2020. Not Available [facility] (Pre-Op Clinic) [address] [place] [address] [place], [address], 09/02/2024 19:12:45 09/03/19 25 09/02/2024 COMP METAB OLIC PANEL alk phosphatase 78 IU/L 38-126 Not Available [facility] (Pre-Op Clinic) [address] [place] [address] [place], [address], 09/02/2024 19:12:45 09/03/19 25 09/02/2024 COMP METAB OLIC PANEL note Unles s other eric noted testi ng perfo [facility]med at: [facility] [address] [place] [address] Lobito everett MD Not Available [facility] (Pre-Op Clinic) [address] [place] [address] [place], [address], 09/02/2024 19:12:45 09/03/19 25 09/02/2024 LACOS AMIDE (VIMP AT) note Unles s other eric noted testi ng perfo rmed at: [facility] [address] [place] [address] Lobito everett MD Not Available [facility] (Pre-Op Clinic) [address] [place] [address] [place], [address], 09/09/2024 09:16:34 09/03/19 25 09/09/2024 LACOS AMIDE (VIMP AT) lacosamide 11.7 ug/mL 5.0-10 .0 high Test( s) 83774 6-Lac osami de was devel oped and [...] Perfo rmed at: - [facility] [address] [place] [address] Lab Direc tor: Jacquelin monge MD, Phone : [phone] Not Available [facility] (Pre-Op Clinic) [address] [place] [address] [place], [address], 09/09/2024 09:16:34 09/30/19 25 09/29/2024 MRI, brain , w/wo contr ast No observ ation record ed. [facility] Registration [address] [place] [address] [place], [address], 10/01/2024 07:59:40 09/30/19 25 09/29/2024 [facility], [facility] , [facility] [address] [place] [address] [phone] (Phone ) ALLAN Concepcion REPORT Name: MARCIA GANDHI : 1970 Accoun t #: [id number] Age: 54 Years Patien t Type: Outpat ient Sex: F Access ion#: [id number] Exam Descri ption: MRI BRAIN WOW - ROUTIN E Exam Reason : [id number] local rel symptc epi with comple x part seizur es Order Date/T jeevan: 2024 02:25: 18 PM Dictat ed By: Gonzalo hyde MD Orderi Physic lyndsey: KATHY DENT LOS Attend ing Physic lyndsey: KATHY DENT LOS EXAM DESCRI PTION: MR BRAIN WITHOU T THEN WITH IV CONTRA [facility] HISTOR Y: [id number] local rel symptc epi with comple x part seizur es TECHNI QUE: Multip le MRI sequen satni of the brain were obtain ed in [...] MARCIA GANDHI : 1970 Accoun t #: [id number] Age: 54 Years Patien t Type: Outpat ient Sex: F Access ion#: [id number] Exam Descri ption: MRI BRAIN WOW - ROUTIN E Exam Reason : [id number] local rel symptc epi with comple x [...] ing Provid er: [facility]FI ELD [facility] [address] [place] [address] [place], [address], 10/01/2024 07:59:34 10/08/19 25 09/29/2024 elect romindi ephal ogram (EEG) ; inclu ding recor ding awake and drows y (PROC ) No observ ation record ed. [facility] Registration [address] [place] [address] [place], [address], 10/07/2024 17:10:00 Result Notes Documentation Provider Name and Address Organization Details Recorded Time Mri, Brain, W/wo Contrast : [address] [place] [address] (Phone) IMAGING REPORT ___ Name: MARCIA THORNE : 1970 Age: 54 Years Patient Type: Outpatient Sex: F Exam Description: MRI BRAIN WOW - ROUTINE Exam Reason: [id number] local rel symptc epi with complex part seizures Order Date/Time: 09/29/2024 02:25:18 PM Dictated By: Gonzalo Steinberg MD Ordering Physician: PRIETO LAI Attending Physician: PRIETO LAI ___ EXAM DESCRIPTION: MR BRAIN WITHOUT THEN WITH IV CONTRAST CLINICAL HISTORY: [id number] local rel symptc epi with complex part [...] MRI BRAIN WOW - ROUTINE Exam Reason: [id number] local rel symptc epi with complex part seizures Order Date/Time: 09/29/2024 02:25:18 PM ___ images demonstrate no suspect enhancement or enhancing intracranial mass. Visualized orbits paranasal sinuses and mastoid complexes are grossly unremarkable. IMPRESSION: No acute large vessel infarct, acute intracranial hemorrhage, or intracranial mass lesion. Electronically signed by: Gonzalo Steinberg MD 09/29/2024 02:53 PM EDT RP Principal Machine Setter Supervisor Name: Gonzalo Steinberg Provider ID: [id number] PAGE 2 OF 2 CC'ed Logic: Ordering Provider: NIXON TOM CC Provider: NIEVES ISSA Attending Provider: NIXON TOM Referring Provider: NIXON TOM Admitting Provider: NIXON TOM [facility] 10/01/2024 07:59:34 Medical Equipment None Reported. Medications [...] blood by Pulse oximetry Heart rate Systolic And Diastolic Provider Name and Address Organization Details Last Updated DateTime 167.64 cm 38.7 kg/m2 271810. 17 g 97 [degF] 97 % 97 % 74 /min 130/80 mm[Hg] Kelsie Toney [facility] [place] [facility] [place] 12:34:23 Social History None recorded. Functional Status None recorded. Mental Status None recorded. Family History Relationship Description Onset Age of this Age Resolved Age Notes LastModified by Organization Details LastModified Time Father No current problems or disability [email or web address] Not available 08/27 11:46:39 Mother No current problems or disability Not available 08/27 11:46:39 Medical History Condition Response Anxiety/Depression Y Hypertension Y Gynecological HistoryNo gynecological history recorded. Obstetrics History GPAL:G 0 P 0 0 0 0 Past Encounters Encounter ID Performer Location Encounter Start Date Encounter Closed Date Diagnosis/Indication Diagnosis SNOMED-CT Code Diagnosis ICD10 Code Diagnosis Note [id number] Prieto Lai M.D [facility] [address] [place] [phone] 09/02/2024 12:21:08 09/02/2024 12:54:53 Focal onset impaired awareness epileptic seizure 023254999 G40.209 Health Concerns Section Related Observation LastModified by Organization Detai ls LastModified Time None Recorded Concern Status LastModified by Organization Details LastModified Time None Recorded Advance Directives Directive None Recorded Payers Insurance Date Sequence Insurance Name Policy Number Policy Patel Covered Member ID Patel Member ID Guarantor Name 10/21/2024 1 [place] [id number] 1 Kyle Thorne [id number] Marcia Thorne 09/08/2024 1 [place] [id number] 1 Marcia Thorne [id number] Marcia Thorne OBGyn Episode No OBEpisode recorded.
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
[2024-11-23 14:40] VITALS: BP 129/73; PULSE 67; RESP 18; O2SAT 95; BMI 38.7
== END 2024-11-23 23:59 | disposition home or self-care (01) ==
PROVIDERS: PCP Nurse Practitioner Family; Visit Provider Nurse Practitioner Family
DX: M25.561 Pain in right knee (principal); M25.562 Pain in left knee; Z79.1 Long term (current) use of non-steroidal anti-inflammatories (NSAID)
CPT/HCPCS: 99212; G0463

== ENCOUNTER 2024-12-21 11:32 | Outpatient (POV) | payer BC, SELFPAY ==
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
[2024-12-21 11:59] VITALS: BP 140/68; PULSE 70; RESP 14; O2SAT 96; BMI 38.7
--- OUTSIDE RECORDS SUMMARY | 2024-12-21 12:11 | XMS_ITS | Referral Summary ---
Author Organization [employer] ([place], [place], [place], [place]) Address [address] [place] [address] Care Team Providers Care Aluminum Boats Assembler Name Role Phone Sonido Redmond MD Primary Care Provider + [phone] Allergies Active Allergy Reactions Criticality Noted Date [...] Date Aba rded Speak language other than Bruneian at home Not on file 05/17/2023 Want [...] Plan of Treatment Not on file Insurance [facility] [place] [id number] BLUE CROSS/BLUE [employer]IELD Advance Directives For more information, please contact: [phone] * Full Code (Latest Code Status on File) Date Activated Date Inactivated Comments 10/18/2022 9:32 AM 10/20/2022 1:59 PM Care Teams Aluminum Boats Assembler Relationship Specialty Start Date End Date Sonido Redmond MD [address] [place] [address] [place] [address] PCP - General Family Medicine 10/04/22
--- OUTSIDE RECORDS SUMMARY | 2024-12-21 12:11 | XMS_ITS | Clinical Summary ---
Author Organization [facility] Address [address] [place] [address] Care Team Providers Care Automobile Appraiser Name Role Phone Mohsen Flanagan PREETI Primary Care Provider +[phone] Allergies Active Allergy Reactions Criticality Noted Date [...] Description 01/22/2025 9:40 AM EDT Office Visit [place] [address] [place] [address] Taylor Francois, MAIL MANAGER [address] [address] Health Maintenance Due Date Last Done Comments [facility]-Depression Screening 1968 [facility]-HIV Screening 1968 [facility]-Hepatitis C Screening 1968 [facility]-/Child/Adol SDOH Screenings 1968 [facility]- SDOH Screenings 1986 [facility]-Adult SDOH Screenings 1986 [facility]-Hepatitis B Vaccines (1 of 3 - 19+ 3-dose series) 1987 [facility]-Pap Smear 1989 [facility]-Cervical Cancer Screening 1998 [facility]-HPV/Cotest 1998 CT Colonography 2013 Colonoscopy 2013 FIT-DNA 2013 FIT 2013 FOBT 2013 Sigmoidoscopy 2013 [facility]-Colorectal Cancer Screening 2013 [facility]-Breast Cancer Screening 2018 [facility]-Pneumococcal Vaccine: 50 + Years (1 of 1 - PCV) 2018 [id number] Vaccine (1 - season) 2023 [facility]-Influenza Vaccine [...] complete this topic Insurance ANTH Care Teams Automobile Appraiser Relationship Specialty Start Date End Date Mohsen Flanagan APRN [address] [place] [address] PCP - General 11/02/21
--- OUTSIDE RECORDS SUMMARY | 2024-12-21 12:11 | XMS_ITS | Clinical Summary ---
Author Organization [employer] ([place], [place], [place], [place]) Address [address] [place] [address] Care Team Providers Care Data Collection Interviewer Name Role Phone Sonido Redmond MD Primary Care Provider + [phone] Allergies Active Allergy Reactions Criticality Noted Date [...] Date Aba rded Speak language other than Dominican at home Not on file 05/17/2023 Want [...] 2023 Influenza Vaccine (#1) 2024 02/24/2016 Insurance [facility] [place] [id number] BLUE CROSS/BLUE [employer]IELD Advance Directives For more information, please contact: [phone] * Full Code (Latest Code Status on File) Date Activated Date Inactivated Comments 10/18/2022 9:32 AM 10/20/2022 1:59 PM Care Teams Data Collection Interviewer Relationship Specialty Start Date End Date Sonido Redmond MD [address] [place] [address] [place] [address] PCP - General Family Medicine 10/04/22
== END 2024-12-21 23:59 | disposition home or self-care (01) ==
PROVIDERS: PCP Nurse Practitioner Family; Visit Provider Nurse Practitioner Family
DX: M25.561 Pain in right knee (principal); M25.562 Pain in left knee; Z79.1 Long term (current) use of non-steroidal anti-inflammatories (NSAID); Z79.899 Other long term (current) drug therapy
CPT/HCPCS: 99212; G0463